=== PATIENT | male | born 1960 | race African-American/Black ===

== ENCOUNTER 2020-03-07 12:21 | Outpatient (REF) | payer MEDICARE, MEDICAID, SELFPAY | END 2020-03-07 12:22 | disposition home or self-care (01) | LOC: HO.LAB 12:21 | PROVIDERS: Visit Provider Internal Medicine | DX: Z20.828 Contact with and (suspected) exposure to other viral communicable diseases (principal) | CPT/HCPCS: U0003 ==

== ENCOUNTER 2021-03-20 11:57 | Emergency (ER) | payer OTHER, SELFPAY ==
--- NOTE | ~2021-03-20 | XR_ITS ---
EXAMINATION: XR CHEST XR LS SPINE CLINICAL INFORMATION: Cough. Radicular pain down left leg. COMPARISON: Chest radiograph done on 03/25/2019. Lumbosacral spine done on 03/26/2016. TECHNIQUE: 2 views of the chest and 2 views, 3 images of the lumbosacral spine were obtained. FINDINGS: Chest: Both lungs are symmetrically expanded and appear clear. The cardiac mediastinal silhouette is within normal limit. No evidence of any pleural effusion or pneumothorax. The visualized upper abdomen is unremarkable. Lumbosacral spine: Mild mid lumbar rotatory dextroscoliosis is present. There is partial sacralization of L5 on the left. Decreased disc height, endplate sclerosis and osteophyte formations, consistent with moderate degenerative spondylosis related changes are noted, most pronounced at L3-L4 and to a lesser extent at L4-L5. The heights of the lumbar vertebrae are well-maintained. The posterior appendages are intact. The paraspinal soft tissues are unremarkable. XR/XR lumbar spine 2-3V IMPRESSION: 1. The chest radiograph shows no radiographic evidence of acute cardiopulmonary disease. Specifically, no radiographic evidence of pneumonia. 2. The lumbosacral spine shows mild mid lumbar rotatory scoliosis and multilevel degenerative spondylosis at L4-L5 and L3-L4 and partial sacralization of L5 on the left, similar to prior study.
--- NOTE | ~2021-03-20 | XR_ITS ---
EXAMINATION: XR CHEST XR LS SPINE CLINICAL INFORMATION: Cough. Radicular pain down left leg. COMPARISON: Chest radiograph done on 03/25/2019. Lumbosacral spine done on 03/26/2016. TECHNIQUE: 2 views of the chest and 2 views, 3 images of the lumbosacral spine were obtained. FINDINGS: Chest: Both lungs are symmetrically expanded and appear clear. The cardiac mediastinal silhouette is within normal limit. No evidence of any pleural effusion or pneumothorax. The visualized upper abdomen is unremarkable. Lumbosacral spine: Mild mid lumbar rotatory dextroscoliosis is present. There is partial sacralization of L5 on the left. Decreased disc height, endplate sclerosis and osteophyte formations, consistent with moderate degenerative spondylosis related changes are noted, most pronounced at L3-L4 and to a lesser extent at L4-L5. The heights of the lumbar vertebrae are well-maintained. The posterior appendages are intact. The paraspinal soft tissues are unremarkable. XR/XR chest 2V IMPRESSION: 1. The chest radiograph shows no radiographic evidence of acute cardiopulmonary disease. Specifically, no radiographic evidence of pneumonia. 2. The lumbosacral spine shows mild mid lumbar rotatory scoliosis and multilevel degenerative spondylosis at L4-L5 and L3-L4 and partial sacralization of L5 on the left, similar to prior study.
[2021-03-20 12:19] VITALS: BP 142/61; PULSE 75; RESP 18; TEMP 37.2; O2SAT 99; BMI 22.9
--- NOTE | 2021-03-20 14:53 | ED_ITS ---
HPI - Back Pain/Injury General Chief Complaint: Back Pain/Injury Stated Complaint: back pain/cough Time Seen by Provider: 03/20/21 14:53 Source: patient Mode of arrival: ambulatory Limitations: no limitations History of Present Illness HPI Narrative: patient with back pain that started 3 days ago. He has had a dry cough and the coughing hurt his back. Patient has been taking tramadol and motrin but he is still having pain. The pain radiates to the left knee and groin. Patient with L4, L5 and S1 with bad disks. patient has been vaccinated against covid, patient has influenza shot. MD elicited complaint: back injury Pertinent past history: prior back pain Onset (ago): day(s) Timing: constant Severity: moderate Related Data Home Medications Medication Instructions Recorded Confirmed tramadol 50 mg tablet 50 mg PO BID PRN 10/25/20 10/25/20 Previous Rx's Medication Instructions Recorded clonazepam 1 mg tablet 1 mg PO DAILY PRN 30 Days #20 tab 10/25/20 sildenafil 50 mg tablet 50 mg PO DAILY PRN 30 Days #3 tab 01/17/21 cyclobenzaprine 10 mg tablet 10 mg PO TID #10 tab 03/20/21 gabapentin 100 mg capsule 100 mg PO TID #30 cap 03/20/21 Allergies Allergy/AdvReac Type Severity Reaction Status Date / Time No Known Allergies Allergy Verified 10/25/20 11:30 Review of Systems Constitutional: Constitutional: Reports no additional constitutional complaints Eyes: Eyes: Reports no additional eye complaints ENT: Denies dizziness Cardiovascular: Cardiovascular: Reports no additional cardiovascular complain ts Respiratory: Respiratory: Reports as per HPI Gastrointestinal: Gastrointestinal: Reports no additional gastrointestinal complaints Musculoskeletal: Musculoskeletal: Reports no additional musculoskeletal complaints Integumentary/Breasts: Skin/Breast: Denies rash Neurologic: Reports system reviewed and no additional complaints, except as documented, Denies dizziness and Denies Sensory deficit (Neuro) Psychiatric: Psychiatric: Denies anxiety PMFSH Past Medical History Medical History Anxiety Colon cancer Depression Screening for colon cancer Screening for diabetes mellitus Screening for hyperlipidemia Screening for prostate cancer Surgical History History of colonoscopy Family History Family History Mother Hypertension Diabetes Father No problems noted. Other Substance use disorder Social History Social History Housing: Apartment Alcohol intake: never Patient Tobacco Use Status: Current everyday Tobacco user Tobacco use type: Cigarette Cigarette Packs Per Day: 1 Cigarettes Per Day: 20 Advance Directives: No Advance Directives Information Provided: Yes Current occupational status: employed and disabled Current occupation: Right Handed Physical Exam Vital Signs: Vital Signs: Last Vital Signs Temp 97.8 F 03/20/21 15:44 Pulse 67 03/20/21 15:44 Resp 17 03/20/21 15:44 BP 113/67 03/20/21 15:44 Pulse Ox 99 03/20/21 15:44 BMI result Body Mass Index 22.9 Const: Other: thin male looking uncomfortable Nutritional Appearance: thin Orientation/consciousness: oriented to person and patient oriented x3 Limitations: no limitations HENMT: Head: Yes normal to inspection Ears: external ears normal General nose exam: Normal external nose present Mouth: Normal oral and palatal mucosa present and oropharynx normal Throat: Yes posterior oropharynx normal Eyes: General: appearance normal, both eyes and all related structures Neck: Other: supple Neck: Yes normal visual inspection Chest: Chest palpation & inspection: normal inspection of the chest Resp: Auscultation: clear to auscultation bilaterally Cardio: Jugular venous distension: no JVD Rate: regular rate Rhythm: regular rhythm Heart sounds: S1 normal heart sound present and S2 normal heart sound present GI: Inspection: Yes normal to inspection Palpation (GI): Soft to palpation, nontender and No hepatosplenomegaly present Auscultation: normal bowel sounds Back/Spine/Pelvis: Other: bilateral SI joint pain, pain on the left with straight leg raise Skin: General skin exam: no rashes or lesions noted Neuro: General: oriented to person and patient oriented x3 Cranial nerves: Yes CN's II-XII intact bilaterally Motor exam (neuro): 5/5 motor strength present throughout Sensory Exam: No Sensory deficit (Neuro) Extrem: General: Yes normal to inspection Psych: Appearance: grossly normal Course Reevaluation(s) Reevaluation #1: Patient with back pain after coughing, CXR clear, covid neg ative, diffuse arthritis of back will start flexeril and gabapentin Time: 17:07 MDM - Back Pain/Injury Lab Data Labs: Lab Results 03/20/21 Range/Units 15:30 Influenza Type A (PCR) NEGATIVE (Negative) Influenza Type B (PCR) NEGATIVE (Negative) RSV RNA Qual (PCR) NEGATIVE (Negative) SARS-CoV-2 RNA (RT-PCR) NEGATIVE (Negative) Imaging Data chest and lumbar sacral spine: Radiologist's impression: Chest: Both lungs are symmetrically expanded and appear clear. The cardiac mediastinal silhouette is within normal limit. No evidence of any pleural effusion or pneumothorax. The visualized upper abdomen is unremarkable. Lumbosacral spine: Mild mid lumbar rotatory dextroscoliosis is present. There is partial sacralization of L5 on the left. Decreased disc height, endplate sclerosis and osteophyte formations, consistent with moderate degenerative spondylosis related changes are noted, most pronounced at L3-L4 and to a lesser extent at L4-L5. The heights of the lumbar vertebrae are well-maintained. The posterior appendages are intact. The paraspinal soft tissues are unremarkable. Discharge Plan Discharge Clinical Impression: Lumbar radiculopathy Low back pain Qualifiers: Chronicity: unspecified Back pain laterality: midline Sciatica presence: with sciatica Sciatica laterality: bilateral sciatica Qualified Code(s): M54.41 - Lumbago with sciatica, right side Patient Disposition: Home, Self-Care Instructions: Acute Low Back Pain (ED), Lumbar Radiculopathy (ED) Prescriptions: New cyclobenzaprine 10 mg tablet 10 mg PO TID Qty: 10 RF: 0 gabapentin 100 mg capsule 100 mg PO TID Qty: 30 RF: 0 No Action clonazepam 1 mg tablet 1 mg PO DAILY PRN (Reason: anxiety) 30 Days Qty: 20 RF: 0 sildenafil 50 mg tablet 50 mg PO DAILY PRN (Reason: sexual activity) 30 Days Qty: 3 RF: 5 tramadol 50 mg tablet 50 mg PO BID PRNRF: 0 Referrals: Natacha Vargas MD [Primary Care Provider] - 1 week
[2021-03-20] MEDS: Cyclobenzaprine HCl 10 MG TABLET PO (15:32)
[2021-03-20] MEDS: Ketorolac Tromethamine 60 MG/2 ML VIAL IM (15:32)
[2021-03-20 15:44] VITALS: BP 113/67; PULSE 67; RESP 17; TEMP 36.6; O2SAT 99
[2021-03-20 16:13] LABS: Influenza A PCR NEGATIVE (Negative); Influenza B PCR NEGATIVE (Negative); Resp Syncy Virus RNA Qual PCR NEGATIVE (Negative); SARS COV2 PCR INHOUSE NEGATIVE (Negative)
== END 2021-03-20 17:30 | disposition home or self-care (01) ==
PROVIDERS: Emergency Provider Emergency Medicine; PCP Internal Medicine
DX: M54.16 Radiculopathy, lumbar region (principal); M54.50 Low back pain, unspecified; Z20.822 Contact with and (suspected) exposure to COVID-19
CPT/HCPCS: 0241U; 36415; 71046; 72100; 96372; 99284; J1885

== ENCOUNTER 2021-08-20 09:52 | Emergency (ER) | payer OTHER, SELFPAY ==
[2021-08-20 11:28] VITALS: BP 142/77; PULSE 67; RESP 18; TEMP 36.2; O2SAT 100; BMI 21.5
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
[2021-08-20] MEDS: Ketorolac Tromethamine 30 MG/ML VIAL IM (13:00)
== END 2021-08-20 13:14 | disposition home or self-care (01) ==
PROVIDERS: Emergency Provider Emergency Medicine; PCP Internal Medicine
DX: M54.50 Low back pain, unspecified (principal); M54.2 Cervicalgia; F17.210 Nicotine dependence, cigarettes, uncomplicated; Z71.6 Tobacco abuse counseling; Z79.899 Other long term (current) drug therapy
CPT/HCPCS: 96372; 99281; 99282; 99284; J1885

== ENCOUNTER 2022-01-22 07:34 | Emergency (ER) | payer OTHER, SELFPAY ==
--- NOTE | ~2022-01-22 | CT_ITS ---
EXAMINATION: CT ABDOMEN AND PELVIS WITH CONTRAST CLINICAL INFORMATION: Abdominal pain. No bowel movement for 4 days. COMPARISON: None TECHNIQUE: Multidetector volumetric images were obtained from the superior aspect of the liver through the pubic symphysis following administration 85 mL of Omnipaque 350 intravenous contrast. Sagittal and coronal reformatted images were obtained on the technologist's workstation. Oral contrast: No This CT examination was performed using dose optimization techniques as appropriate, variously including the following: *Automated exposure control *Adjustment of mA and/or kV according to patient size (this includes techniques or standardized protocols for targeted exams where dose is matched to indication/reason for exam; i.e. extremities or head) *Use of iterative reconstruction technique DLP: 371 mGy-cm FINDINGS: LUNG BASES: The visualized lung bases are unremarkable. LIVER, GALLBLADDER, AND BILIARY TREE: The liver is normal in size, shape, and attenuation. Calcified granulomata noted in the liver. No focal hepatic lesion or biliary ductal dilatation is present. The gallbladder is unremarkable with no evidence of radiopaque gallstones, gallbladder wall thickening, or obvious pericholecystic inflammatory changes. PANCREAS: Unremarkable. SPLEEN: Unremarkable. ADRENAL GLANDS: Unremarkable. KIDNEYS AND URETERS: The kidneys are normal in size, shape, and attenuation. No hydronephrosis or hydroureter. No perinephric stranding. Prominent central parapelvic cyst in the right kidney. This measures 4.6 cm. This is a simple cyst and no further follow-up is recommended. Early excretion of contrast versus 0.3 cm calculus at the upper pole of the right kidney, 6 cm from the posterior axillary line. BLADDER: Unremarkable. GASTROINTESTINAL TRACT: The stomach is unremarkable. Normal caliber of the small bowel. No obstruction. Normal appendix. No colonic wall thickening or acute inflammation. No abnormal colonic stool burden. No free air or free fluid. ABDOMINAL WALL: No significant hernia is appreciated. In the posterior subcutaneous fat there is a 3.1 cm ovoid cyst, possibly a sebaceous cyst. LYMPH NODES: Normal. VASCULAR: Normal caliber aorta with minimal atherosclerotic calcification. PELVIC VISCERA: The prostate and seminal vesicles are unremarkable. OSSEOUS STRUCTURES: No acute or suspicious osseous abnormality. Mild degenerative changes throughout the spine. Vacuum disc phenomenon at L3-L4. Sacralization of L5. Degenerative changes of the hips. CT/CT abdomen pelvis w IV con IMPRESSION: No acute findings of the abdomen or pelvis. No inflammatory changes. No obstruction. No abnormal colonic stool burden. Fleischner guidelines were followed.
--- NOTE | ~2022-01-22 | XR_ITS ---
EXAMINATION: XR CHEST CLINICAL INFORMATION: Epigastric pain. COMPARISON: 03/20/2021 chest radiographs. TECHNIQUE: Frontal view of the chest was obtained. FINDINGS: No significant abnormality is noted involving the heart, lungs, mediastinum, bony thorax or soft tissues. XR/XR chest 1V IMPRESSION: No acute cardiopulmonary process.
[2022-01-22 07:41] VITALS: BP 134/76; PULSE 90; O2SAT 96
[2022-01-22 07:44] VITALS: BP 137/74; PULSE 92; RESP 16; TEMP 37.5; O2SAT 97; BMI 20.7
[2022-01-22 07:48] VITALS: PULSE 92; RESP 16
--- NOTE | 2022-01-22 08:26 | ED_ITS ---
HPI - General Adult General Chief complaint: General Medical Stated complaint: NO BM X'S 4 DAYS,UPPER ABD PAIN,KEVIN PER EMS Time Seen by Provider: 01/22/22 08:15 Source: patient and EMS Mode of arrival: EMS Limitations: no limitations History of Present Illness HPI narrative: Patient is a 61 year old assigned male at with no reported medical history presenting to the emergency department today feeling unwell and not having a bowel movement over the last 4 days. Patient states that over the last few days, he has felt generally unwell and he has not been having normal bowel movements. Patient states that he is concerned about ticks because their dog got out the other day and they had to remove a bunch of ticks from the dog. Patient denies any dizziness, lightheadedness, abdominal pain, nausea, vomiting, blurry vision, double vision, loss of vision, chest pain, difficulty breathing, shortne ss of breath, back pain, night sweats, pain with urination, increased urinary frequency, increased urinary urgency, blood in his urine or stool, syncope or a near syncopal episode, recent trauma or falls, bowel incontinence, bladder incontinence, bowel retention, bladder retention, or any other complaints at this time. Onset (ago): day(s) (4) Severity: mild Severity scale (1-10): 3 Quality: aching Relieving factors: none Exacerbating factors: none Associated symptoms: fever/chills Treatments prior to arrival: none Related Data Home Medications Medication Instructions Recorded Confirmed tramadol 50 mg tablet 50 mg PO BID PRN 10/25/20 03/22/21 Previous Rx's Medication Instructions Recorded clonazepam 1 mg tablet 1 mg PO DAILY PRN anxiety 30 days 10/25/20 #20 tabs cyclobenzaprine 10 mg tablet 10 mg PO TID #10 tabs 03/20/21 gabapentin 100 mg capsule 100 mg PO TID #30 caps 03/20/21 naproxen 500 mg tablet 500 mg PO BID PRN pain #20 tabs 03/22/21 prednisone 20 mg tablet 40 mg PO DAILY 5 days #10 tabs 03/22/21 cyclobenzaprine 10 mg tablet 10 mg PO TID PRN muscle spasm 7 08/20/21 days #21 tabs ketorolac 10 mg tablet 10 mg PO Q6H 5 days #20 tabs 08/20/21 sildenafil 50 mg tablet 50 mg PO DAILY PRN sexual activity 09/27/21 30 days #3 tabs doxycycline hyclate 100 mg tablet 100 mg PO BID 10 days #20 tabs 01/22/22 Allergies Allergy/AdvReac Type Severity Reaction Status Date / Time No Known Allergies Allergy Verified 08/20/21 11:28 Review of Systems Constitutional: Constitutional: Reports no additional constitutional complaints, Reports chills, Reports fever(s) and Denies night sweats Eyes: Eyes: Reports no additional eye complaints, Denies blurry vision, Denies change in vision, Denies diplopia, Denies eye discharge, Denies loss of vision and Denies eye pain ENT: Denies dizziness Cardiovascular: Cardiovascular: Reports no additional cardiovascular complaints, Denies chest pain, Denies lightheadedness, Denies Loss of Consciousness and Denies dyspnea Respiratory: Respiratory: Reports no additional respiratory complaints and Denies dyspnea Gastrointestinal: Gastrointestinal: Reports no additional gastrointestinal complaints, Denies abdominal pain, Denies melena, Denies hematochezia, Denies change in bowel habits and Denies change in stool character Genitourinary: Genitourinary: Reports no additional male genitourinary complaints, Denies hematuria, Denies oliguria, Denies difficulty urinating, Denies dysuria, Denies urinary frequency, Denies urinary hesitancy, Denies urinary incontinence and Denies urinary urgency Musculoskeletal: Musculoskeletal: Reports no additional musculoskeletal complaints, Denies numbness and Denies tingling Neurologic: Denies dizziness, Denies loss of vision, Denies numbness and Denies tingling Psychiatric: Psychiatric: Reports no additional psychiatric complaints Endocrine: Endocrine: Reports no additional endocrine complaints Hematologic/Lymphatic: Hematologic/Lymphatic: Reports no additional hematologic/lymphatic complaints Allergic/Immunologic: Allergic/Immunologic: Reports no additional allergic/immunologic complaints [facility] Past Medical History Attestation statement: The following information was validated with the patient. Source: old records reviewed Medical History Anxiety Colon cancer Depression Screening for colon cancer Screening for diabetes mellitus Screening for hyperlipidemia Screening for prostate cancer Surgical History History of colonoscopy Family History Family History Mother Hypertension Diabetes Father No problems noted. Other Substance use disorder Social History Social History Housing: Apartment Alcohol intake: never Patient Tobacco Use Status: Current everyday Tobacco user Tobacco use type: Cigarette Cigarette Packs Per Day: 1 Cigarettes Per Day: 20 e-Cigarette/Vaping Use: Never Used Second Hand Smoke Exposure: No Use of substances other than those prescribed or required for medical reasons: No Advance Directives: No service: No Current occupational status: unemployed and disabled Current occupation: Right Handed Physical Exam ED Vital Signs: Vital Signs - 24 hr 01/22/22 07:44 01/22/22 07:48 01/22/22 09:55 Temperature 99.5 F 103.0 F H Pulse Rate 92 92 94 Respiratory Rate 16 16 18 Blood Pressure 137/74 118/62 Pulse Oximetry 97 100 Oxygen Delivery Method Room Air Room Air 01/22/22 14:19 Temperature 98.5 F Pulse Rate 72 Respiratory Rate 20 Blood Pressure 99/48 L Pulse Oximetry 95 Oxygen Delivery Method Room Air BMI result Body Mass Index 20.7 Const General: cooperative, no acute distress, alert and awake Nutritional Appearance: well nourished Orientation/consciousness: patient oriented x3 Limitations: no limitations HENMT Head: Yes normal to inspection and Yes atraumatic Ears: hearing grossly normal bilaterally and external ears normal General nose exam: Normal external nose present, no nasal discharge noted and no epistaxis Face and sinus: Yes normal facial exam, No abrasion and No laceration Mouth: Normal oral and palatal mucosa present, no drooling and no muffled voice Eyes General: appearance normal, both eyes and all related structures Periorbital: periorbital findings normal Eyelids: Yes eyelids normal Conjunctivae: conjunctivae normal Pupils: Equal, round and reactive pupils present EOM: EOMs intact bilaterally Neck Neck: Yes normal visual inspection, Yes full ROM and Yes no lymphadenopathy Chest Chest palpation & inspection: normal inspection of the chest Resp Effort & Inspection: normal respiratory effort and able to speak in complete sentences Auscultation: clear to auscultation bilaterally Cardio Rate: regular rate Rhythm: regular rhythm GI Inspection: Yes normal to inspection Palpation (GI): Soft to palpation, not firm, nontender, no guarding and not rigid Neuro General: patient oriented x3 and moves all extremities Cranial nerves: Yes Equal, round and reactive pupils present Cognition (Neuro): normal cognition Motor exam (neuro): 5/5 motor strength present throughout Sensory Exam: Normal double simultaneous stimulation for sensation Coordination: [id number] test normal Extrem General: Yes normal to inspection, Yes full ROM and Yes capillary refill normal Psych Appearance: grossly normal Mental Status: mental status grossly normal Affect: normal affect Attitude: cooperative Thought process: Normal thought process present Thought content: Normal thought content present Insight: Good insight present (Psych) Medical Decision Making MDM Narrative Medical decision making narrative: Patient is a 61 year old assigned male at with no reported medical history presenting to the emergency department today with no bowel movements and feeling generally unwell. Patient's physical exam was unremarkable. Patient's blood work was unremarkable. Patient's urine showed no acute process. Patient's EKG was unremarkable. Patient's chest x-ray showed no acute process. Given the patient's fever with no clear origin and recent exposure to ticks, the patient will be treated for a tick borne illness. I explained my physical exam findings as well as all test results to the patient and the patient's . I answered all questions asked by the patient and the patient's . Patient received Toradol and Tylenol which he stated helped his symptoms significantly. I stressed the importance of the patient taking his medication as prescribed. I stressed the importance of the patient following up with his primary care provider. I stressed the importance of the patient returning to the emergency department immediately if his symptoms were to worsen or if he were to develop any dizziness, shortness of breath, difficulty breathing, chest pain, blurry vision, loss of vision, nausea, vomiting, abdominal pain, fever, chills, back pain, or any other complaints. Patient and the patient's verbalized agreement and understanding with this treatment plan and discharge. Medical Records Medical records reviewed: Yes I reviewed the patient's medical records. Lab Data Lab results reviewed: Yes I reviewed the patient's lab results. Result diagrams: 01/22/22 08:43 01/22/22 08:43 Labs: Lab Results 01/22/22 01/22/22 01/22/22 Range/Units 08:43 08:43 08:43 WBC 3.7 L (4.8-10.8) X10*3/uL RBC 5.42 (4.60-5.80) X10*6/uL Hgb 16.1 (14.0-18.0) g/dl Hct 46.9 (42.0-52.0) % MCV 86.5 (80.0-98.0) fL MCH 29.7 (27.0-33.0) pg MCHC 34.3 (31.0-36.0) g/dl RDW 13.3 (11.0-16.0) % Plt Count 98 L (160-400) X10*3/uL MPV 12.3 (9.4-12.4) fL Immature Gran % (Auto) 0.5 H (0.0-0.4) % Neut % (Auto) 78.2 H (45-73) % Lymph % (Auto) 15.1 L (20-40) % Tyler % (Auto) 5.9 (2-11) % Eos % (Auto) 0.0 (0-4) % Baso % (Auto) 0.3 (0-2) % Lymph # (Auto) 0.6 L (1.2-4.9) X10*3/uL Tyler # (Auto) 0.2 (0.1-1.2) X10*3/uL Eos # (Auto) 0.0 (0.0-0.4) X10*3/uL Baso # (Auto) 0.0 (0.0-0.2) X10*3/uL Abs Immat Gran (auto) 0.02 (0.00-0.03) X10*3/uL Absolute Neuts (auto) 2.9 (2.0-8.3) x10*3/uL Absolute Nucleated RBC 0.000 (0.0-0.012) X10*3/uL Nucleated RBC % (auto) 0.0 (0.0-0.2) /100WBC Sodium 135 (135-145) mmol/L Potassium 4.5 (3.3-5.1) mmol/L Chloride 99 (96-108) mmol/L Carbon Dioxide 26 (22-29) mmol/L Anion Gap 15 (12-20) BUN 16 (9-16) mg/dL Creatinine 1.13 (0.5-1.4) mg/dL Estim Creat Clear Calc 63.0 Estimated GFR > 60 Random Glucose 111 (60-115) mg/dL Calcium 8.7 (8.4-10.2) mg/dL Magnesium 1.9 (1.6-2.6) mg/dL Total Bilirubin 0.5 (0.0-1.0) mg/dL AST 56 H (5-37) U/L ALT 43 H (0-40) U/L Alkaline Phosphatase 108 (39-117) U/L Troponin I High Sens 8.1 (<3.5-35.0) ng/L C-Reactive Protein 11.17 H (< or = 0.50) mg/dL Total Protein 6.8 (6.5-8.0) g/dL Albumin 3.8 (3.5-5.0) g/dL Urine Color Urine Appearance Urine pH (5.0-9.0) Ur Specific Hardaway (1.005-1.025) Urine Protein (Neg-Trace) mg/dL Urine Glucose (UA) (Negative) mg/dL Urine Ketones (Negative) mg/dL Urine Blood (Negative) Urine Nitrite (Negative) Ur Leukocyte Esterase (Negative) Urine RBC (0-2) /HPF Urine WBC (0-5) /HPF Ur Squamous Epith Cells (0-2) /HPF Urine Bacteria (None Seen) Hyaline Casts (0-2) /LPF Urine Opiates Screen (Not Detect) Urine Fentanyl Screen (Not Detect) Ur Barbiturates Screen (Not Detect) Ur Phencyclidine Scrn (Not Detect) Ur Amphetamines Screen (Not Detect) U Benzodiazepines Scrn (Not Detect) Urine Cocaine Screen (Not Detect) U Marijuana (THC) Screen (Not Detect) Ethyl Alcohol < 10 mg/dL Influenza Type A (PCR) Influenza Type B (PCR) RSV RNA Qual (PCR) SARS-CoV-2 RNA (RT-PCR) 01/22/22 01/22/22 01/22/22 Range/Units 08:50 09:48 10:21 WBC (4.8-10.8) X10*3/uL RBC (4.60-5.80) X10*6/uL Hgb (14.0-18.0) g/dl Hct (42.0-52.0) % MCV (80.0-98.0) fL MCH (27.0-33.0) pg MCHC (31.0-36.0) g/dl RDW (11.0-16.0) % Plt Count (160-400) X10*3/uL MPV (9.4-12.4) fL Immature Gran % (Auto) (0.0-0.4) % Neut % (Auto) (45-73) % Lymph % (Auto) (20-40) % Tyler % (Auto) (2-11) % Eos % (Auto) (0-4) % Baso % (Auto) (0-2) % Lymph # (Auto) (1.2-4.9) X10*3/uL Tyler # (Auto) (0.1-1.2) X10*3/uL Eos # (Auto) (0.0-0.4) X10*3/uL Baso # (Auto) (0.0-0.2) X10*3/uL Abs Immat Gran (auto) (0.00-0.03) X10*3/uL Absolute Neuts (auto) (2.0-8.3) x10*3/uL Absolute Nucleated RBC (0.0-0.012) X10*3/uL Nucleated RBC % (auto) (0.0-0.2) /100WBC Sodium (135-145) mmol/L Potassium (3.3-5.1) mmol/L Chloride (96-108) mmol/L Carbon Dioxide (22-29) mmol/L Anion Gap (12-20) BUN (9-16) mg/dL Creatinine (0.5-1.4) mg/dL Estim Creat Clear Calc Estimated GFR Random Glucose (60-115) mg/dL Calcium (8.4-10.2) mg/dL Magnesium (1.6-2.6) mg/dL Total Bilirubin (0.0-1.0) mg/dL AST (5-37) U/L ALT (0-40) U/L Alkaline Phosphatase (39-117) U/L Troponin I High Sens (<3.5-35.0) ng/L C-Reactive Protein (< or = 0.50) mg/dL Total Protein (6.5-8.0) g/dL Albumin (3.5-5.0) g/dL Urine Color Urine Appearance Urine pH (5.0-9.0) Ur Specific Hard[place] (1.005-1.025) Urine Protein (Neg-Trace) mg/dL Urine Glucose (UA) (Negative) mg/dL Urine Ketones (Negative) mg/dL Urine Blood (Negative) Urine Nitrite (Negative) Ur Leukocyte Esterase (Negative) Urine RBC (0-2) /HPF Urine WBC (0-5) /HPF Ur Squamous Epith Cells (0-2) /HPF Urine Bacteria (None Seen) Hyaline Casts (0-2) /LPF Urine Opiates Screen Not Detected (Not Detect) Urine Fentanyl Screen Not Detected (Not Detect) Ur Barbiturates Screen Not Detected (Not Detect) Ur Phencyclidine Scrn Not Detected (Not Detect) Ur Amphetamines Screen Not Detected (Not Detect) U Benzodiazepines Scrn Not Detected (Not Detect) Urine Cocaine Screen Not Detected (Not Detect) U Marijuana (THC) Screen Not Detected (Not Detect) Ethyl Alcohol mg/dL Influenza Type A (PCR) Cancelled NEGATIVE Influenza Type B (PCR) Cancelled NEGATIVE RSV RNA Qual (PCR) Cancelled NEGATIVE SARS-CoV-2 RNA (RT-PCR) Cancelled NEGATIVE 01/22/22 01/22/22 Range/Units 10:24 13:53 WBC (4.8-10.8) X10*3/uL RBC (4.60-5.80) X10*6/uL Hgb (14.0-18.0) g/dl Hct (42.0-52.0) % MCV (80.0-98.0) fL MCH (27.0-33.0) pg MCHC (31.0-36.0) g/dl RDW (11.0-16.0) % Plt Count (160-400) X10*3/uL MPV (9.4-12.4) fL Immature Gran % (Auto) (0.0-0.4) % Neut % (Auto) (45-73) % Lymph % (Auto) (20-40) % Tyler % (Auto) (2-11) % Eos % (Auto) (0-4) % Baso % (Auto) (0-2) % Lymph # (Auto) (1.2-4.9) X10*3/uL Tyler # (Auto) (0.1-1.2) X10*3/uL Eos # (Auto) (0.0-0.4) X10*3/uL Baso # (Auto) (0.0-0.2) X10*3/uL Abs Immat Gran (auto) (0.00-0.03) X10*3/uL Absolute Neuts (auto) (2.0-8.3) x10*3/uL Absolute Nucleated RBC (0.0-0.012) X10*3/uL Nucleated RBC % (auto) (0.0-0.2) /100WBC Sodium (135-145) mmol/L Potassium (3.3-5.1) mmol/L Chloride (96-108) mmol/L Carbon Dioxide (22-29) mmol/L Anion Gap (12-20) BUN (9-16) mg/dL Creatinine (0.5-1.4) mg/dL Estim Creat Clear Calc Estimated GFR Random Glucose (60-115) mg/dL Calcium (8.4-10.2) mg/dL Magnesium (1.6-2.6) mg/dL Total Bilirubin (0.0-1.0) mg/dL AST (5-37) U/L ALT (0-40) U/L Alkaline Phosphatase (39-117) U/L Troponin I High Sens 9.7 (<3.5-35.0) ng/L C-Reactive Protein (< or = 0.50) mg/dL Total Protein (6.5-8.0) g/dL Albumin (3.5-5.0) g/dL Urine Color Dark Yellow Urine Appearance Clear Urine pH 7.0 (5.0-9.0) Ur Specific Hardaway >= 1.030 H (1.005-1.025) Urine Protein 100 (2+) H (Neg-Trace) mg/dL Urine Glucose (UA) Negative (Negative) mg/dL Urine Ketones 15 (Negative) mg/dL Urine Blood Trace H (Negative) Urine Nitrite Negative (Negative) Ur Leukocyte Esterase Trace H (Negative) Urine RBC 11-20 H (0-2) /HPF Urine WBC 0-5 (0-5) /HPF Ur Squamous Epith Cells 0-2 (0-2) /HPF Urine Bacteria None Seen (None Seen) Hyaline Casts 0-2 (0-2) /LPF Urine Opiates Screen (Not Detect) Urine Fentanyl Screen (Not Detect) Ur Barbiturates Screen (Not Detect) Ur Phencyclidine Scrn (Not Detect) Ur Amphetamines Screen (Not Detect) U Benzodiazepines Scrn (Not Detect) Urine Cocaine Screen (Not Detect) U Marijuana (THC) Screen (Not Detect) Ethyl Alcohol mg/dL Influenza Type A (PCR) Influenza Type B (PCR) RSV RNA Qual (PCR) SARS-CoV-2 RNA (RT-PCR) Imaging Data Chest x-ray: Attestation: I personally reviewed and interpreted this imaging study as follows: My impression: No acute process. Radiologist's impression: EXAMINATION: XR CHEST CLINICAL INFORMATION: Epigastric pain. COMPARISON: 03/20/2021 chest radiographs. TECHNIQUE: Frontal view of the chest was obtained. FINDINGS: No significant abnormality is noted involving the heart, lungs, mediastinum, bony thorax or soft tissues. XR/XR chest 1V IMPRESSION: No acute cardiopulmonary process. ? Dictated By: Jose A Mcintyre MD Signed By: Electronically signed by Jose A Mcintrye MD 01/22/[address] scan - abdomen: Attestation: I personally reviewed and interpreted this imaging study as follows: My impression: No acute process. Radiologist's impression: EXAMINATION: CT ABDOMEN AND PELVIS WITH CONTRAST? CLINICAL INFORMATION: Abdominal pain. No bowel movement for 4 days.? COMPARISON: None? TECHNIQUE: Multidetector volumetric images were obtained from the superior aspect of the liver through the pubic symphysis following administration 85 mL of Omnipaque 350 intravenous contrast. Sagittal and coronal reformatted images were obtained on the technologist's workstation.? Oral contrast: No This CT examination was performed using dose optimization techniques as appropriate, variously including the following: *Automated exposure control *Adjustment of mA and/or kV according to patient size (this includes techniques or standardized protocols for targeted exams where dose is matched to indication/reason for exam; i.e. extremities or head) *Use of iterative reconstruction technique DLP: 371 mGy-cm FINDINGS: LUNG BASES: The visualized lung bases are unremarkable.? LIVER, GALLBLADDER, AND BILIARY TREE: The liver is normal in size, shape, and attenuation. Calcified granulomata noted in the liver. No focal hepatic lesion or biliary ductal dilatation is present. The gallbladder is unremarkable with no evidence of radiopaque gallstones, gallbladder wall thickening, or obvious pericholecystic inflammatory changes.? PANCREAS: Unremarkable.? SPLEEN: Unremarkable.? ADRENAL GLANDS: Unremarkable.? KIDNEYS AND URETERS: The kidneys are normal in size, shape, and attenuation. No hydronephrosis or hydroureter. No perinephric stranding. Prominent central parapelvic cyst in the right kidney. This measures 4.6 cm. This is a simple cyst and no further follow-up is recommended. Early excretion of contrast versus 0.3 cm calculus at the upper pole of the right kidney, 6 cm from the posterior axillary line. BLADDER: Unremarkable.? GASTROINTESTINAL TRACT: The stomach is unremarkable. Normal caliber of the small bowel. No obstruction. Normal appendix. No colonic wall thickening or acute inflammation. No abnormal colonic stool burden. No free air or free fluid.? ABDOMINAL WALL: No significant hernia is appreciated. In the posterior subcutaneous fat there is a 3.1 cm ovoid cyst, possibly a sebaceous cyst. LYMPH NODES: Normal. VASCULAR: Normal caliber aorta with minimal atherosclerotic calcification. PELVIC VISCERA: The prostate and seminal vesicles are unremarkable.? OSSEOUS STRUCTURES: No acute or suspicious osseous abnormality. Mild degenerative changes throughout the spine. Vacuum disc phenomenon at L3-L4. Sacralization of L5. Degenerative changes of the hips.? CT/CT abdomen pelvis w IV con IMPRESSION: No acute findings of the abdomen or pelvis. No inflammatory changes. No obstruction. No abnormal colonic stool burden. ? Fleischner guidelines were followed. Dictated By: Roly Earl MD Signed By: Electronically signed by Roly Earl MD 01/22/22 3337 ECG Data Attestation: I personally reviewed and interpreted this ECG as follows: Prior ECG tracings: not available for review Interpretation: Vent. Rate: 076 BPM ? ? Atrial Rate: 076 BPM P-R Int: 124 ms? QRS Dur: 088 ms QT Int: 368 ms ? ? ? P-R-T Axes: 070 056 051 degrees QTc Int: 414 ms ? Normal sinus rhythm Low voltage QRS Possible Right atrial enlargement Borderline ECG No previous ECGs available ? Electronically Signed By:FARIDEH SALINAS MD Dictated By: Raffi Salinas MD Signed By: Electronically signed by Raffi Salinas MD 01/22/22 0274 Discharge Plan Discharge Clinical Impression: Tick borne fever Patient Disposition: Home, Self-Care Instructions: Tick Bite (ED) Additional Instructions: Follow up with your primary care provider. Return to the emergency department immediately if your symptoms worsen or if you develop any dizziness, shortness of breath, difficulty breathing, chest pain, blurry vision, loss of vision, nausea, vomiting, abdominal pain, fever, chills, back pain, or any other complaints. Prescriptions: New doxycycline hyclate 100 mg tablet 100 mg PO BID 10 Days Qty: 20 1RF No Action clonazepam 1 mg tablet 1 mg PO DAILY PRN (Reason: anxiety) 30 Days Qty: 20 0RF sildenafil 50 mg tablet 50 mg PO DAILY PRN (Reason: sexual activity) 30 Days Qty: 3 5RF cyclobenzaprine 10 mg tablet 10 mg PO TID Qty: 10 0RF gabapentin 100 mg capsule 100 mg PO TID Qty: 30 0RF cyclobenzaprine 10 mg tablet 10 mg PO TID PRN (Reason: muscle spasm) 7 Days Qty: 21 0RF Rx Instructions: Side effect of drowsiness. Do not take at work or while driving ketorolac 10 mg tablet 10 mg PO Q6H 5 Days Qty: 20 0RF Rx Instructions: Patient received 30 mg Toradol in the ER. Do not take the this medication with any other NSAID, blood thinner, or aspirin. tramadol 50 mg tablet 50 mg PO BID PRN prednisone 20 mg tablet 40 mg PO DAILY 5 Days Qty: 10 0RF naproxen 500 mg tablet 500 mg PO BID PRN (Reason: pain) Qty: 20 0RF Referrals: Natacha Vargas MD [Primary Care Provider] - Stand Alone Forms: Work/School Release Print Language: Kyrgyz
[2022-01-22 08:50] LABS: MANUAL DIFF FLAG NO
[2022-01-22 08:51] LABS: Basophils Percent Auto 0.3 % (0-2); Hematocrit 46.9 % (42.0-52.0); Hemoglobin 16.1 g/dl (14.0-18.0); Imm Gran Abs Auto 0.02 X10*3/uL (0.00-0.03); Imm Gran Pct Auto 0.5 % (0.0-0.4); Lymphocytes Absolute Auto 0.6 X10*3/uL (1.2-4.9); Lymphocytes Percent Auto 15.1 % (20-40); Mean Corpuscular HGB Conc 34.3 g/dl (31.0-36.0); Mean Corpuscular Hemoglobin 29.7 pg (27.0-33.0); Mean Corpuscular Volume 86.5 fL (80.0-98.0); Monocytes Absolute Auto 0.2 X10*3/uL (0.1-1.2); Monocytes Percent Auto 5.9 % (2-11); Neutrophils Absolute Auto 2.9 x10*3/uL (2.0-8.3); Neutrophils Percent Auto 78.2 % (45-73); Red Blood Count 5.42 X10*6/uL (4.60-5.80); Red Cell Distribution Width 13.3 % (11.0-16.0); White Blood Count 3.7 X10*3/uL (4.8-10.8)
[2022-01-22 09:08] LABS: Alanine Aminotransferase 43 U/L (0-40); Albumin Level 3.8 g/dL (3.5-5.0); Alkaline Phosphatase 108 U/L (39-117); Anion Gap 15 (12-20); Aspartate Amino Transferase 56 U/L (5-37); Bilirubin Total 0.5 mg/dL (0.0-1.0); Blood Urea Nitrogen 16 mg/dL (9-16); Calcium 8.7 mg/dL (8.4-10.2); Carbon Dioxide 26 mmol/L (22-29); Chloride 99 mmol/L (96-108); Estimated Glomerular Filt Rate > 60; Ethanol < 10 mg/dL; Glucose Random 111 mg/dL (60-115); Magnesium 1.9 mg/dL (1.6-2.6); Potassium 4.5 mmol/L (3.3-5.1); Sodium 135 mmol/L (135-145); Total Protein 6.8 g/dL (6.5-8.0)
[2022-01-22 09:09] LABS: Mean Platelet Volume 12.3 fL (9.4-12.4); Platelet Count 98 X10*3/uL (160-400)
[2022-01-22] MEDS: iohexoL 350 MG/ML 100 ML INFUS..BTL 85 ML IV (09:35)
[2022-01-22 09:55] VITALS: BP 118/62; PULSE 94; RESP 18; TEMP 39.4; O2SAT 100
[2022-01-22] MEDS: Acetaminophen 325 MG TABLET 650 MG PO (10:12)
[2022-01-22] MEDS: Ketorolac Tromethamine 15 MG/ML VIAL IVPUSH (10:12)
[2022-01-22 10:40] LABS: Appearance Urine Clear; Color Urine Dark Yellow; Glucose Urine UA Negative (Negative); Leukocyte Esterase Urine Trace (Negative); Nitrite Urine Negative (Negative); Specific Gravity - Urine >= 1.030 (1.005-1.025); UMIC TRIGGER UACC YES; Urine Blood Trace (Negative); Urine Ketones 15 mg/dL (Negative); Urine Protein 100 (2+) mg/dL (Neg-Trace)
[2022-01-22 10:45] LABS: Bacteria Urine None Seen (None Seen); Hyaline Casts Urine 0-2 /LPF (0-2); Squamous Epithelial Cell Urine 0-2 /HPF (0-2); WBC Urine 0-5 /HPF (0-5)
[2022-01-22 10:56] LABS: Amphetamine Screen Urine Not Detected (Not Detect); Barbiturates, Urine Not Detected (Not Detect); Benzodiazepines Screen Urine Not Detected (Not Detect); Cannabinoid Screen Urine Not Detected (Not Detect); Cocaine Screen Urine Not Detected (Not Detect); Fentanyl, urine Not Detected (Not Detect); Opiate Screen Urine Not Detected (Not Detect); Phencyclidine Screen Urine Not Detected (Not Detect)
[2022-01-22 11:08] LABS: Influenza A PCR NEGATIVE (Negative); Influenza B PCR NEGATIVE (Negative); Resp Syncy Virus RNA Qual PCR NEGATIVE (Negative); SARS COV2 PCR INHOUSE NEGATIVE (Negative)
--- NOTE | 2022-01-22 11:32 | ECG_ITS ---
Test Reason : Chest Pain Blood Pressure : / mmHG Vent. Rate : 076 BPM Atrial Rate : 076 BPM P-R Int : 124 ms QRS Dur : 088 ms QT Int : 368 ms P-R-T Axes : 070 056 051 degrees QTc Int : 414 ms Normal sinus rhythm Low voltage QRS Possible Right atrial enlargement Borderline ECG No previous ECGs available Referred By: Grisel Kline Electronically Signed By:FARIDEH SALINAS MD
[2022-01-22 13:05] LABS: Troponin-I High Sensitivity 8.1 ng/L (<3.5-35.0)
[2022-01-22 13:20] LABS: C Reactive Protein 11.17 mg/dL (< or = 0.50)
[2022-01-22 14:19] VITALS: BP 99/48; PULSE 72; RESP 20; TEMP 36.9; O2SAT 95
[2022-01-22 14:26] LABS: Troponin-I High Sensitivity 9.7 ng/L (<3.5-35.0)
--- NOTE | 2022-01-22 14:27 | PC.NURSE ---
Repeat troponin drawn/sent. Pt denies pain or discomfort, resting quietly. Temp has trended down as charted
--- NOTE | 2022-01-23 08:17 | ECG_ITS ---
Test Reason : Chest Pain Blood Pressure : / mmHG Vent. Rate : 074 BPM Atrial Rate : 074 BPM P-R Int : 122 ms QRS Dur : 090 ms QT Int : 374 ms P-R-T Axes : 068 045 047 degrees QTc Int : 415 ms Normal sinus rhythm Intra-ventricular conduction delay Low voltage QRS Borderline ECG When compared with ECG of 22-JAN-2022 12:16, No significant change was found Referred By: Edouard Rajan Electronically Signed By:FARIDEH SALINAS MD
[2022-01-25 08:11] LABS: A. Phagocytphilium DNA,RT-PCR DETECTED (NOT DETECTED); Babesia Microti DNA, RT-PCR NOT DETECTED (NOT DETECTED); Borrelia Miyamotoi,DNA RT-PCR NOT DETECTED (NOT DETECTED); E.Chaffeensis DNA RT-PCR NOT DETECTED (NOT DETECTED); Lyme(Borrelia ssp)DNA RT-PCR NOT DETECTED (NOT DETECTED)
[2022-01-25 12:55] LABS: Source-Tick borne disease BLOOD
== END 2022-01-22 15:29 | disposition home or self-care (01) ==
PROVIDERS: Physician Assistant Medical; Emergency Provider Emergency Medicine Emergency Medical Services; PCP Internal Medicine
DX: A93.8 Other specified arthropod-borne viral fevers (principal); R07.89 Other chest pain; R10.13 Epigastric pain; F17.210 Nicotine dependence, cigarettes, uncomplicated; Z20.822 Contact with and (suspected) exposure to COVID-19; Z71.6 Tobacco abuse counseling; Z79.899 Other long term (current) drug therapy
CPT/HCPCS: 0241U; 36415; 71045; 74177; 80053; 80307; 81001; 82077; 83735; 84484; 85025; 86140; 87798; 87801; 93005; 96374; 99284; J1885; Q9967

== ENCOUNTER 2022-11-21 07:11 | Outpatient (REF) | payer OTHER, SELFPAY ==
[2022-11-21 07:22] LABS: MANUAL DIFF FLAG NO
[2022-11-21 07:48] LABS: Basophils Percent Auto 0.4 % (0-2); Eosinophils Absolute Auto 0.2 X10*3/uL (0.0-0.4); Eosinophils Percent Auto 2.7 % (0-4); Hematocrit 45.9 % (42.0-52.0); Imm Gran Abs Auto 0.03 X10*3/uL (0.00-0.03); Imm Gran Pct Auto 0.4 % (0.0-0.4); Lymphocytes Absolute Auto 2.3 X10*3/uL (1.2-4.9); Lymphocytes Percent Auto 34.4 % (20-40); Mean Corpuscular HGB Conc 32.7 g/dl (31.0-36.0); Mean Corpuscular Hemoglobin 29.8 pg (27.0-33.0); Mean Corpuscular Volume 91.1 fL (80.0-98.0); Mean Platelet Volume 10.5 fL (9.4-12.4); Monocytes Absolute Auto 0.9 X10*3/uL (0.1-1.2); Monocytes Percent Auto 13.2 % (2-11); Neutrophils Absolute Auto 3.3 x10*3/uL (2.0-8.3); Neutrophils Percent Auto 48.9 % (45-73); Platelet Count 226 X10*3/uL (160-400); Red Blood Count 5.04 X10*6/uL (4.60-5.80); Red Cell Distribution Width 13.3 % (11.0-16.0); White Blood Count 6.7 X10*3/uL (4.8-10.8)
[2022-11-21 08:06] LABS: Alanine Aminotransferase 10 U/L (0-40); Alkaline Phosphatase 76 U/L (39-117); Anion Gap 9 (12-20); Aspartate Amino Transferase 15 U/L (5-37); Bilirubin Total 0.2 mg/dL (0.0-1.0); Blood Urea Nitrogen 17 mg/dL (9-16); Calcium 9.4 mg/dL (8.4-10.2); Carbon Dioxide 29 mmol/L (22-29); Chloride 108 mmol/L (96-108); Estimated Glomerular Filt Rate > 60; Glucose Random 96 mg/dL (60-115); Lipase 43 U/L (8-78); Potassium 3.8 mmol/L (3.3-5.1); Sodium 142 mmol/L (135-145)
== END 2022-11-21 07:12 | disposition home or self-care (01) ==
LOC: HO.LAB 07:11
PROVIDERS: PCP Internal Medicine; Visit Provider Nurse Practitioner Family
DX: R10.13 Epigastric pain (principal)
CPT/HCPCS: 36415; 80053; 83690; 85025

== ENCOUNTER 2022-11-26 14:32 | Outpatient (AMB) | payer OTHER, SELFPAY ==
--- NOTE | 2022-11-26 14:35 | A.OFFPC_ITS ---
Vital Signs 11/26/22 14:36 Height 5 ft 10 in Weight 162 lb BMI 23.2 BP 130/70 Blood Pressure Location Lt brachial Position Sitting Intake Visit Reasons: epigastric pain Intake Note: Patient here for a follow up on epigastric pain [employer] Required: No Accompanied by: Self / Same As Patient Allergies No Known Allergies Allergy (Verified 11/26/22 14:57) Medication List - Last Reconciled 11/26/22 by Natacha Hurtdao MD lidocaine 4% (Aspercreme (lidocaine)) 1 patch topical DAILY PRN omeprazole 20 mg PO DAILY sertraline 25 mg PO DAILY sildenafil 50 mg PO DAILY PRN 30 days Tobacco use date assessed: 09/11/22 Dental Screening Dental Screen Date: 11/26/22 Did you have a dental visit in the last 12 months?: Yes Did you have a dental problem in the last 6 months where you did not have access to dental care?: No Was dental information given to patient?: Patient has dentist HPI HPI Comments History of Present Illness Details This is a 62-year-old male with chronic GERD, chronic low back pain, mild major depression that complains of right wrist pain that has been present for few weeks. Painless when flexion and extension. Had colonoscopy 2016 showing tubular adenoma of colon and has not been wanting to get another colonoscopy since 2016 due to the bowel prep. He is willing to go again for colonoscopy. Depression stable with SSRIs. GERD has markedly improved by changing diet. Low back pain still present and walks with a cane for gait stability. Use lidocaine patch for back pain [facility] Medical History (Updated 11/26/22 @ 16:14 by Natacha Hurtado MD) Anxiety Colon cancer Depression Screening for colon cancer Screening for diabetes mellitus Screening for hyperlipidemia Screening for prostate cancer Surgical History History of colonoscopy Family History Mother Hypertension Diabetes Father No problems noted. Other Substance use disorder Social History Housing: Apartment Alcohol intake: never Patient Tobacco Use Status: Current everyday Tobacco user Tobacco use type: Cigarette Cigarette Packs Per Day: 1 Cigarettes Per Day: 20 e-Cigarette/Vaping Use: Never Used Second Hand Smoke Exposure: No service: No Current occupational status: unemployed and disabled Current occupation: Right Handed Cognitive needs: No Hearing needs: No Vision needs: Yes (glasses) Questionnaire Thrive Questionnaire Date Thrive assessed: 09/11/22 HEIDI-7 AMB Questionnaire HEIDI-7 Date HEIDI - 7 assessed: 09/11/22 Source: Developed by Drs. Wilfredo Figueroa, Tanja Garcia, Reilly Garcia and colleagues, with an educational mary from [employer]. Review of Systems Const All systems reviewed & are unremarkable except as noted in HPI and below Eyes Reports no additional complaints, Denies change in vision and Denies other visual disturbances Card Denies chest pain at rest, Denies chest pain with activity, Denies edema, Denies irregular heart rhythm, Denies claudication, Denies dyspnea, Denies dyspnea on exertion, Denies orthopnea, Denies paroxysmal nocturnal dyspnea and Denies slow heart rate Resp Denies cough, Denies dyspnea and Denies dyspnea on exertion GI Reports abdominal pain, Denies change in bowel habits, Denies excessive flatus, Reports heartburn, Denies nausea and Denies vomiting Denies urinary hesitancy, Denies urinary incontinence and Denies urinary urgency Musc Denies abnormal gait, Reports back pain, Denies atrophy, Denies deformity and Denies limited range of motion Skin/Breast Denies bleeding lesions, Denies changing lesions and Denies rash Neuro Denies abnormal gait and Denies lack of coordination Physical exam (Primary Care) Vital Signs: Last Vital Signs BP 130/70 11/26/22 14:36 BMI result Body Mass Index 23.2 Tobacco/Smoking Status: Tobacco use Status Tobacco use date assessed 09/11/22 11/26/22 14:40 Patient Tobacco Use Status Current everyday Tobacco 11/26/22 14:40 Tobacco use type Cigarette 11/26/22 14:40 e-Cigarette/Vaping Use Never Used 11/26/22 14:40 Thrive Assessment: Date of Thrive Assessment Date Thrive assessed 09/11/22 11/26/22 14:40 Const Limitations: ambulation with cane Eyes General: appearance normal, both eyes and all related structures Eyelids: Yes eyelids normal Conjunctivae: conjunctivae normal Neck Neck: Yes normal visual inspection and Yes supple Resp Effort & Inspection: normal respiratory effort Auscultation: clear to auscultation bilaterally Cardio Jugular venous distension: no JVD Rate: regular rate Rhythm: regular rhythm Heart sounds: S1 normal heart sound present and S2 normal heart sound present Extrem General: Yes full ROM Assessment and Plan Assessment & Plan (1) Low back pain: Code(s): M54.5 - Low back pain Plan: Continue lidocaine patch prn (2) Mild major depression: Code(s): F32.0 - Major depressive disorder, single episode, mild Plan: Continue SSRIs. (3) Chronic GERD: Code(s): K21.9 - Gastro-esophageal reflux disease without esophagitis Plan: Continue PPIs as needed. (4) Right wrist pain: Code(s): M25.531 - Pain in right wrist Plan: Wrist brace ordered (5) Tubular adenoma of colon: Code(s): D12.6 - Benign neoplasm of colon, unspecified Plan: Gastroenterology referral colonoscopy. Orders: Orders [place] upper GI series Today K21.9 - Gastro-esophageal reflux disease without esophagitis Referrals Gastroenterology Referral D12.6 - Benign neoplasm of colon, unspecified Medications: New loratadine (Allergy Relief (loratadine)) 10 mg PO DAILY 90 days PRN 90 tabs 1RF allergic symptoms Brace,wrist (Wrist Brace - one) As directed 1 ea 0RF M25.531 - Pain in right wrist Coding Level of Care Code Est Pt Level 4 (59211) Diagnoses Low back pain M54.5 Mild major depression F32.0 Chronic GERD K21.9 Right wrist pain M25.531 Tubular adenoma of colon D12.6 Time Spent (min) 23
[2022-11-26 14:36] VITALS: BP 130/70; BMI 23.2
== END 2022-11-26 15:08 | disposition home or self-care (01) ==
PROVIDERS: PCP Internal Medicine; Visit Provider Internal Medicine
DX: M54.50 Low back pain, unspecified (principal); F32.0 Major depressive disorder, single episode, mild; K21.9 Gastro-esophageal reflux disease without esophagitis; M25.531 Pain in right wrist; D12.6 Benign neoplasm of colon, unspecified
CPT/HCPCS: 99214

== ENCOUNTER 2022-12-17 14:44 | Emergency (ER) | payer OTHER, SELFPAY ==
--- NOTE | 2022-12-17 | ECG_ITS ---
Test Reason : DIZZYNESS Blood Pressure : / mmHG Vent. Rate : 066 BPM Atrial Rate : 066 BPM P-R Int : 130 ms QRS Dur : 092 ms QT Int : 400 ms P-R-T Axes : 046 032 051 degrees QTc Int : 419 ms Normal sinus rhythm Normal ECG When compared with ECG of 22-JAN-2022 12:20, No significant change was found Referred By: Generic ED Physician Electronically Signed By:RANDI ANDREWS
--- NOTE | ~2022-12-17 | XR_ITS ---
EXAMINATION: XR WRIST, RIGHT CLINICAL INFORMATION: Pain, limited range of motion COMPARISON: None available. TECHNIQUE: PA, lateral, and oblique views of the right wrist. FINDINGS: The bones and soft tissues are normal. No fracture. Alignment is anatomic with normal joint spaces. No erosions or abnormal soft tissue calcifications. XR/XR wrist RT min 3V IMPRESSION: Unremarkable right wrist.
--- NOTE | ~2022-12-17 | CT_ITS ---
EXAMINATION: CT HEAD WITHOUT CONTRAST CLINICAL INFORMATION: Seizure COMPARISON: None available. TECHNIQUE: Contiguous axial imaging was performed from the skull base to vertex without intravenous administration of contrast. This CT examination was performed using dose optimization techniques as appropriate, variously including the following: *Automated exposure control *Adjustment of mA and/or kV according to patient size (this includes techniques or standardized protocols for targeted exams where dose is matched to indication/reason for exam; i.e. extremities or head) *Use of iterative reconstruction technique DLP: 650 mGy-cm FINDINGS: There is no evidence of an extra-axial collection. There is no evidence of intra-axial or extra-axial hemorrhage. The ventricles and extra-axial CSF spaces are appropriate. Melton-white matter differentiation is normal. No mass, mass effect or infarct. Review of bone windows is normal. No skull fracture. Visualized paranasal sinuses, mastoid air cells and middle ears are clear. CT/CT head/brain wo IV con IMPRESSION: Unremarkable exam.
[2022-12-17 15:03] VITALS: BP 116/80; BP 96/50; PULSE 64; PULSE 65; RESP 14; TEMP 35.5; O2SAT 94; O2SAT 96; BMI 23.0
--- NOTE | 2022-12-17 15:12 | ED.GENADULT ---
HPI - General Adult General Chief complaint: Dizziness Stated complaint: VOMITING PER EMS Time Seen by Provider: 12/17/22 15:12 Source: patient and EMS Mode of arrival: EMS Limitations: no limitations History of Present Illness HPI narrative: 62-year-old male with history of anxiety, depression, low back pain, GERD who presents to the ER for evaluation of possible seizure activity at home. Patient's reports that after he ate a sandwich he went to the couch reporting not feeling well. He felt weak and like his blood pressure might be low. He has his to get the blood pressure cuff and he suddenly had his eyes roll back and started vomiting. reports he had tonic clonic seizure-like activity and continued to vomit. She states the seizure-like activity lasted seconds. She pulled him forward to protect his airway and he shortly after came to. He was not confused after the event. No trauma or fall. 911 was called. Patient denies any similar episodes in the past. No history of seizure disorder. He feels back to baseline. He denies any drug or alcohol use. He reports new right wrist pain for the last couple of weeks after playing horseshoes. He has been wearing a brace. Otherwise no other changes in his medical history. MD complaint: Question seizure activity, vomiting Onset (ago): hour(s) (1) Pain Consistency: now resolved Relieving factors: none Exacerbating factors: none Associated symptoms: weakness Treatments prior to arrival: none Related Data Previous Rx's Medication Instructions Recorded lidocaine 4 % topical patch 1 patch topical DAILY PRN pain #30 09/11/22 (Aspercreme (lidocaine)) ea loratadine 10 mg tablet (Allergy 10 mg PO DAILY PRN allergic 11/26/22 Relief (loratadine)) symptoms 90 days #90 tabs omeprazole 20 mg capsule,delayed 20 mg PO DAILY #30 caps 11/26/22 release sertraline 25 mg tablet 25 mg PO DAILY #30 tabs 11/26/22 sildenafil 50 mg tablet 50 mg PO DAILY PRN sexual activity 11/29/22 30 days #5 tabs Brace,wrist (Wrist Brace - one) #1 ea 12/02/22 Allergies Allergy/AdvReac Type Severity Reaction Status Date / Time No Known Allergies Allergy Verified 11/26/22 14:57 Review of Systems Review of Systems: Yes all other systems are reviewed and are negative PMFSH Past Medical History Medical History Anxiety Colon cancer Depression Screening for colon cancer Screening for diabetes mellitus Screening for hyperlipidemia Screening for prostate cancer Surgical History History of colonoscopy Family History Family History Mother Hypertension Diabetes Father No problems noted. Other Substance use disorder Social History Social History Housing: Apartment Alcohol intake: never Patient Tobacco Use Status: Current everyday Tobacco user Tobacco use type: Cigarette Cigarette Packs Per Day: 1 Cigarettes Per Day: 20 Smoked in Last 30 Days: Yes e-Cigarette/Vaping Use: Never Used Second Hand Smoke Exposure: No Use of substances other than those prescribed or required for medical reasons: No Advance Directives: No Advance Directives Information Provided: No service: No Current occupational status: unemployed and disabled Current occupation: Right Handed Cognitive needs: No Hearing needs: No Vision needs: Yes (glasses) Physical Exam ED Vital Signs: Vital Signs - 24 hr 12/17/22 15:03 Temperature 96 F L Pulse Rate 64 Respiratory Rate 14 Blood Pressure 96/50 L Pulse Oximetry 94 Oxygen Delivery Method Room Air BMI result Body Mass Index 23.0 Appearance: Alert. Oriented X3. No acute distress. Head: normocephalic, atraumatic. Eyes: Pupils equal, round and reactive to light. ENT: Pharynx normal. No tonsillar swelling or exudate. Neck: Normal inspection. Neck supple. CVS: Normal heart rate and rhythm. Pulses normal. Respiratory: No respiratory distress. Breath sounds normal. Abdomen: Soft and nontender. +BS x4 Skin: Skin warm and dry. Normal skin color. Normal skin turgor. No rashes. Extremities: No lower extremity edema. right wrist with tenderness at the radial head, limited ROM due to pain. no swelling or deformity. NV intact distally, 2+ radial pulse. Neuro/psych: Oriented X 3. No motor deficit. No sensory deficit. CN II-XII intact. Normal speech and cognition. Medical Decision Making Medical Decision Making MDM Narrative: 62-year-old male with history of anxiety, depression, GERD presents to the ER for evaluation of an episode recurrent vomiting and what sounds like possible seizure activity witnessed by the . No trauma. Patient arrives to the ER alert and oriented with a nonfocal neuro exam. He is feeling much better. His up pressure is on the softer side, he is asymptomatic. Will plan to check CT of head given 1st episode like this, lab workup, U tox, alcohol level, EKG. Will also get x-rays of the wrist given his complaints. Differential Diagnosis Differential Diagnoses: The differential diagnosis associated with the presentation includes Orthostatic hypotension, new onset seizure, aspiration, focal seizure, alcohol withdrawal seizure Admission/Observation Consideration of admission/observation: Escalation of care including admission/observation considered Independent Interpretation I performed an independent interpretation of an: EKG, Plain X-Ray and CT Scan Interpretation: xr without acute fracture ekg with normal sinus rhythm, HR 66 bpm, Normal QTC, normal KS interval, no ST segment elevations or depressions. CT scan without any edema or acute bleed Radiology Impression Discussion of test interpretation with radiology: I have reviewed the radiologist's reading. Radiologist Impression: XR/XR wrist RT min 3V IMPRESSION: Unremarkable right wrist. CT/CT head/brain wo IV con IMPRESSION: Unremarkable exam. Independent Historian Clinical information obtained from an independent historian. History obtained from or confirmed by: Spouse and EMS External Record Review External record reviewed: Prior outpatient labs Critical Care Time Critical Care Time Critical Care Time: No Discharge Plan Discharge Clinical Impression: Vomiting Patient Disposition: Still a Patient Prescriptions: No Action sertraline 25 mg tablet 25 mg PO DAILY Qty: 30 1RF omeprazole 20 mg capsule,delayed release(DR/EC) 20 mg PO DAILY Qty: 30 1RF sildenafil 50 mg tablet 50 mg PO DAILY PRN (Reason: sexual activity) 30 Days Qty: 5 2RF Rx Instructions: administer 30 minutes to 4 hours before activity (DME) Wrist [facility]ace [facility] See Rx Instructions .Route Qty: 1 0RF Rx Instructions: As directed lidocaine [Aspercreme (lidocaine)] 4 % adhesive patch,medicated 1 patch topical DAILY PRN (Reason: pain) Qty: 30 0RF loratadine [Allergy Relief (loratadine)] 10 mg tablet 10 mg PO DAILY PRN (Reason: allergic symptoms) 90 Days Qty: 90 1RF
[2022-12-17 16:32] LABS: MANUAL DIFF FLAG NO
[2022-12-17 16:41] LABS: Basophils Percent Auto 0.2 % (0-2); Eosinophils Percent Auto 0.3 % (0-4); Hematocrit 44.7 % (42.0-52.0); Hemoglobin 15.1 g/dl (14.0-18.0); Imm Gran Abs Auto 0.07 X10*3/uL (0.00-0.03); Imm Gran Pct Auto 0.5 % (0.0-0.4); Lymphocytes Absolute Auto 0.9 X10*3/uL (1.2-4.9); Lymphocytes Percent Auto 6.8 % (20-40); Mean Corpuscular HGB Conc 33.8 g/dl (31.0-36.0); Mean Corpuscular Volume 88.7 fL (80.0-98.0); Mean Platelet Volume 10.6 fL (9.4-12.4); Monocytes Percent Auto 7.5 % (2-11); Neutrophils Absolute Auto 11.1 x10*3/uL (2.0-8.3); Neutrophils Percent Auto 84.7 % (45-73); Platelet Count 232 X10*3/uL (160-400); Red Blood Count 5.04 X10*6/uL (4.60-5.80); Red Cell Distribution Width 13.5 % (11.0-16.0); White Blood Count 13.1 X10*3/uL (4.8-10.8)
[2022-12-17 16:48] LABS: Alanine Aminotransferase 9 U/L (0-40); Albumin Level 4.1 g/dL (3.5-5.0); Alkaline Phosphatase 73 U/L (39-117); Anion Gap 9 (12-20); Aspartate Amino Transferase 15 U/L (5-37); Bilirubin Total 0.5 mg/dL (0.0-1.0); Blood Urea Nitrogen 16 mg/dL (9-16); Calcium 9.9 mg/dL (8.4-10.2); Carbon Dioxide 27 mmol/L (22-29); Chloride 107 mmol/L (96-108); Creatinine Clr Calc Pharmacy 81.6; Estimated Glomerular Filt Rate > 60; Glucose Random 103 mg/dL (60-115); Lipase 30 U/L (8-78); Potassium 3.8 mmol/L (3.3-5.1); Sodium 139 mmol/L (135-145); Total Protein 7.3 g/dL (6.5-8.0)
[2022-12-17 16:51] LABS: Ethanol < 10 mg/dL
[2022-12-17 17:28] LABS: Magnesium 2.1 mg/dL (1.6-2.6)
[2022-12-17 18:07] VITALS: BP 110/76; PULSE 68; RESP 18; TEMP 36.5; O2SAT 99
[2022-12-17 18:15] LABS: Amphetamine Screen Urine Not Detected (Not Detect); Barbiturates, Urine Not Detected (Not Detect); Benzodiazepines Screen Urine Not Detected (Not Detect); Cannabinoid Screen Urine Not Detected (Not Detect); Cocaine Screen Urine Not Detected (Not Detect); Fentanyl, urine Not Detected (Not Detect); Opiate Screen Urine Not Detected (Not Detect); Phencyclidine Screen Urine Not Detected (Not Detect)
[2022-12-17 18:24] LABS: Appearance Urine Clear; Color Urine Yellow; Glucose Urine UA Negative (Negative); Leukocyte Esterase Urine Trace (Negative); Nitrite Urine Negative (Negative); PH 6.5 (5.0-9.0); UMIC TRIGGER UACC YES; Urine Blood Negative (Negative); Urine Ketones Trace mg/dL (Negative); Urine Protein Trace mg/dL (Neg-Trace)
[2022-12-17 18:27] LABS: Troponin-I High Sensitivity < 2.7 ng/L (<3.5-35.0)
[2022-12-17 18:43] LABS: Bacteria Urine None Seen (None Seen); Hyaline Casts Urine 0-2 /LPF (0-2); RBC Urine 0-2 /HPF (0-2); Squamous Epithelial Cell Urine 0-2 /HPF (0-2); WBC Urine 0-5 /HPF (0-5)
[2022-12-17 18:46] VITALS: BP 119/68; BP 122/61; PULSE 66; PULSE 67
[2022-12-17 18:47] VITALS: BP 120/67; PULSE 72
== END 2022-12-17 19:05 | disposition home or self-care (01) ==
PROVIDERS: Physician Assistant; Emergency Provider Student in an Organized Health Care Education/Training Program; PCP Internal Medicine
DX: R11.10 Vomiting, unspecified (principal); R53.1 Weakness; M25.531 Pain in right wrist; K21.9 Gastro-esophageal reflux disease without esophagitis; F41.9 Anxiety disorder, unspecified; F32.0 Major depressive disorder, single episode, mild; F17.210 Nicotine dependence, cigarettes, uncomplicated; Z79.899 Other long term (current) drug therapy
CPT/HCPCS: 36415; 70450; 73110; 80053; 80307; 81001; 82550; 83690; 83735; 84484; 85025; 93005; 99284; 99285

== ENCOUNTER 2022-12-23 11:33 | Outpatient (AMB) | payer OTHER, SELFPAY ==
--- NOTE | 2022-12-23 11:39 | MHC.PC.OV ---
Vital Signs 12/23/22 11:40 Height 5 ft 10 in Weight 161 lb BMI 23.1 BP 105/60 Blood Pressure Location Lt brachial Position Sitting Pulse 75 Pulse Source Pulse Oximeter Oxygen Delivery Method Room Air Intake Visit Reasons: ED f/u vomiting, eyes rolling back Audit Senior Associate Name: [id number] Lockhart Information Interpreted: non-clinical & clinical [employer]inery [employer]: Not Required per policy Accompanied by: Self / Same As Patient Allergies No Known Allergies Allergy (Verified 12/23/22 12:17) Medication List - Last Reconciled 12/23/22 by FLORINDA Garcia Brace,wrist (Wrist Brace - one) As directed lidocaine 4% (Aspercreme (lidocaine)) 1 patch topical DAILY PRN loratadine (Allergy Relief (loratadine)) 10 mg PO DAILY PRN 90 days omeprazole 20 mg PO DAILY sertraline 25 mg PO DAILY sildenafil 50 mg PO DAILY PRN 30 days Tobacco use date assessed: 09/11/22 Dental Screening Dental Screen Date: 12/23/22 Did you have a dental visit in the last 12 months?: Yes Did you have a dental problem in the last 6 months where you did not have access to dental care?: No Was dental information given to patient?: Patient has dentist HPI HPI Comments History of Present Illness Details 62-year-old male past medical history significant for degenerative spondylolisthesis, with dieting, depression, GERD, depression. Patient Dr. Ashby patient presents today for an ER follow-up. Patient was seen at [facility] Room for possible seizure activity at home patient's reported that he was eating a sandwich any went to the couch reporting not feeling well night he felt weak like his blood pressure was low. Patient's blood pressure went to get the BP cuff and suddenly he had a episode where his eyes rolled back into his head and he started vomiting. reported he had tonic clonic seizure like activity and continue to vomit that lasted seconds. Following that event patient was not confused denied any trauma or fall 911 was called. Admission was discussed with patient however patient felt like he was back to his baseline and he wanted to be discharged home. Head CT unremarkable, lab work unremarkable, orthostatic blood pressure negative. Seizure versus syncope. Patient was discharged home in advised to follow-up with a neurologist and a process safety manager for further evaluation. Patient denies reoccurent episodes as noted above. Denies CP,palpitations and syncope. 3-day holyer monitor ordered to [facility] evaluate for arrhythmia. FOR[facility]LY [facility], LAT[facility] Medical History (Updated 12/23/22 @ 12:26 by FLORINDA Garcia) Seizure Syncope Screening for prostate cancer Screening for hyperlipidemia Screening for colon cancer Screening for diabetes mellitus Anxiety Depression Colon cancer Surgical History History of colonoscopy Family History Mother Hypertension Diabetes Father No problems noted. Other Substance use disorder Social History Housing: Apartment Alcohol intake: never Patient Tobacco Use Status: Current everyday Tobacco user Tobacco use type: Cigarette Cigarette Packs Per Day: 1 Cigarettes Per Day: 20 e-Cigarette/Vaping Use: Never Used Second Hand Smoke Exposure: No service: No Current occupational status: unemployed and disabled Current occupation: Right Handed Cognitive needs: No Hearing needs: No Vision needs: Yes (glasses) Questionnaire PHQ-9 Over the last 2 weeks, how often have you been bothered by any of the following problems? 1. Little interest or pleasure in doing things: several days 2. Feeling down, depressed, or hopeless: more than half the days 3. Trouble falling or staying asleep, or sleeping too much: nearly every day 4. Feeling tired or having little energy: nearly every day 5. Poor appetite or overeating: nearly every day 6. Feeling bad about yourself - or that you are a failure or have let yourself or your family down: more than half the days 7. Trouble concentrating on things, such as reading the newspaper or watching television: more than half the days 8. Moving or speaking so slowly that other people could have noticed. Or the opposite - being so fidgety or restless that you have been moving around a lot more than usual: more than half the days 9. Thoughts that you would be better off or of hurting yourself in some way: not at all Total score: 18 Depression Screening Interpretation: Positive Depression Screening Follow-up: Community Mental Health Worker F/U 38997 - PHQ-9 Billing: Yes Source: Developed by Drs. Wilfredo Figueroa, Tanja Garcia, Reilly Garcia and colleagues, with an educational mary from [employer]. Thrive Questionnaire Date Thrive assessed: 09/11/22 AUDIT C Alcohol Use Questionnaire (AUDIT-C) 1. How often do you have a drink containing alcohol?: Never 3. How often do you have six or more drinks on one occasion?: Never Total Score: 0 Score Reviewed/Action Taken: No HEIDI-7 AMB Questionnaire HEIDI-7 Date HEIDI - 7 assessed: 09/11/22 Source: Developed by Drs. Wilfredo Figueroa, Tanja Garcia, Reilly Garcia and colleagues, with an educational mary from [employer]. Review of Systems Const Denies chills, Denies fatigue, Denies fever(s) and Denies poor appetite Eyes Denies no additional complaints ENT Reports Normal hearing present Card Denies chest pain, Denies syncope, Denies rapid heart rate and Denies dyspnea Resp Denies cough and Denies dyspnea GI Denies change in stool character, Denies constipation, Denies diarrhea, Denies nausea and Denies vomiting Denies dysuria, Denies urinary frequency and Denies urinary urgency Neuro Reports Normal hearing present, Denies confusion and Denies syncope Psych Denies confusion Endo Denies fatigue Physical exam (Primary Care) Vital Signs: Last Vital Signs Pulse 75 12/23/22 11:40 BP 105/60 12/23/22 11:40 Oxygen Delivery Method Room Air 12/23/22 11:40 BMI result Body Mass Index 23.1 Tobacco/Smoking Status: Tobacco use Status Tobacco use date assessed 09/11/22 12/23/22 11:41 Patient Tobacco Use Status Current everyday Tobacco 12/23/22 11:41 Tobacco use type Cigarette 12/23/22 11:41 e-Cigarette/Vaping Use Never Used 12/23/22 11:41 PHQ-9: PHQ-9 Score PHQ-9: Total score 18 12/23/22 11:41 Depression Screening Interpretation: Positive Depression Screening Follow-up: Community Mental Health Worker F/U Thrive Assessment: Date of Thrive Assessment Date Thrive assessed 09/11/22 12/23/22 11:41 Const General: No confusion Orientation/consciousness: No confusion HENMT Head: Yes normocephalic and Yes atraumatic Eyes Conjunctivae: conjunctivae normal Chest Chest palpation & inspection: normal inspection of the chest Resp Effort & Inspection: normal respiratory effort Auscultation: clear to auscultation bilaterally, no crackles, no rhonchi and no wheezes Cardio Rate: regular rate Rhythm: regular rhythm Heart sounds: S1 normal heart sound present and S2 normal heart sound present GI Inspection: Yes normal to inspection Neuro General: No confusion Cranial nerves: Yes Normal hearing present Extrem General: No edema Assessment and Plan Assessment & Plan (1) Seizure: Code(s): R56.9 - Unspecified convulsions Plan: Patient reffered to neurology for futhure evalutation for possible new onset of seziure disorder. (2) Syncope: Code(s): R55 - Syncope and collapse Plan: 3-day holter monitor ordered to evaluate for possible arrhythmia that could result in syncopal episode. Referral placed to cardiology. Plan Keep scheduled follow up wiht pcp in 1 month or follow up sooner if needed. Orders: Orders ECG 3 day holter monitor Today R55 - Syncope and collapse Referrals Neurology Referral R56.9 - Unspecified convulsions Cardiology Referral R55 - Syncope and collapse Coding Level of Care Code Est Pt Level 3 (26218) Diagnoses Seizure R56.9 Syncope R55
[2022-12-23 11:40] VITALS: BP 105/60; PULSE 75; BMI 23.1
== END 2022-12-23 12:26 | disposition home or self-care (01) ==
PROVIDERS: PCP Internal Medicine; Visit Provider Nurse Practitioner Family
DX: R56.9 Unspecified convulsions (principal); R55 Syncope and collapse
CPT/HCPCS: 99213

== ENCOUNTER 2022-12-24 08:12 | Outpatient (AMB) | payer OTHER, SELFPAY ==
--- NOTE | 2022-12-24 08:15 | MHC.OFFVIS ---
Intake Vital Signs 12/24/22 08:18 Height 5 ft 10 in Weight 160 lb BMI 23.0 BP 118/82 Blood Pressure Location Rt brachial Position Sitting Pulse 75 Pulse Source Pulse Oximeter Pulse Oximetry (%) 98 Oxygen Delivery Method Room Air Intake Visit Reasons: INP-Convulsions Intake Note: Patient presents for convulsions. Patient states I was eating a sandwich and started feeling really bad sweating and feeling very dizzy and all of a sudden I passed out for 3 seconds and when I woke up I threw up. Allergies No Known Allergies Allergy (Verified 12/24/22 08:22) Medication List - Last Reconciled 12/24/22 by Odalis Lr, FLORINDA Brace,wrist (Wrist Brace - one) As directed lidocaine 4% (Aspercreme (lidocaine)) 1 patch topical DAILY PRN loratadine (Allergy Relief (loratadine)) 10 mg PO DAILY PRN 90 days omeprazole 20 mg PO DAILY sertraline 25 mg PO DAILY sildenafil 50 mg PO DAILY PRN 30 days HPI HPI Comments History of Present Illness Details Right handed 62-yr-old male presents for neurological evaluation of: new onset convulsion. Pt reports on 12/17/22 he had his 1st ever convulsive episode. He states he was feeling well, he had eaten an egg and cheese sandwich around 1:30pm, afterwhich he was sitting down when he started to feel external spinning f/b generalized sweating and felt hot. At this point he asked his APPLIANCE TESTER, to check his BP and blood sugar- she told him it was normal. At that point he felt like he would vomit. He started to vomit and then he had LOC, eyes rolling back and shaking x's a few seconds. There was no tongue biting or urinary incontinence. His APPLIANCE TESTER had called 911, pt was able to walk (walked down from the 4th floor w/o difficulty) when the flattening machine operator arrived. He denies postictal confusion, but did feel a bit tired. [place] [facility] [place] work-up was unremarkable: CT/CT head/brain wo IV con: Unremarkable exam. CBC- WBC 13.1 H otherwise WNL CMP- WNL Tropinin- negative Urine tox screen- negative EGK- NSR Orthostatic BPs- normal per ER note. He states he had slept well the night before. He denies any preceding infections, injuries. He does have GERD s/s, but denies any usual severe postprandial GI pain. He denies usual constipation, but the following day after the episode he did have constipation. Denies usual dizziness, syncope, snoring, apneas/gasping arousals. Any history of concussion or head injury? Denies Any history of significant musculoskeletal disorders? Chronic long back pain, gait diff s/p work injury > 10 yrs ago, leg cramps Any history of cardiovascular disorders? Denies Any history of mood disorders? anxiety, depression Any history of coagulopathy disorders? denies Any history of metabolic disorders? denies Any history of neurological disorders? Denies. No h/o seizures. No h/o spacing out. No h/o syncope. Any family history of a similar disorder? Denies [facility] Medical History (Updated 12/23/22 @ 12:26 by FLORINDA Garcia) Seizure Syncope Screening for prostate cancer Screening for hyperlipidemia Screening for colon cancer Screening for diabetes mellitus Anxiety Depression Colon cancer Surgical History History of colonoscopy Family History Mother Hypertension Diabetes Father No problems noted. Other Substance use disorder Social History Housing: Apartment Alcohol intake: never Patient Tobacco Use Status: Current everyday Tobacco user Tobacco use type: Cigarette Cigarette Packs Per Day: 1 Cigarettes Per Day: 20 e-Cigarette/Vaping Use: Never Used Second Hand Smoke Exposure: No service: No Current occupational status: unemployed and disabled Current occupation: Right Handed Cognitive needs: No Hearing needs: No Vision needs: Yes (glasses) Review of Systems Const All systems reviewed & are unremarkable except as noted in HPI and below Physical Exam Vital Signs: Last Vital Signs Pulse 75 12/24/22 08:18 BP 118/82 12/24/22 08:18 Pulse Ox 98 12/24/22 08:18 Oxygen Delivery Method Room Air 12/24/22 08:18 BMI result Body Mass Index 23.0 Const General: cooperative and no acute distress Orientation/consciousness: patient oriented x3 HEENT Head: Yes normocephalic Resp Effort & Inspection: normal respiratory effort and able to speak in complete sentences Neuro General: patient oriented x3 and CN's II-XI intact bilaterally Gait exam (Neuro): Antalgic gait present and Assistive device used (cane) Motor exam (neuro): 5/5 motor strength present throughout Deep tendon reflexes (DTR's): Right triceps reflex intensity grade: 2+, Left triceps reflex intensity grade: 2+, Rt Biceps (C5, C6): 2+, Left biceps reflex intensity grade: 2+, Left brachioradialis reflex intensity grade: 2+, Right patellar reflex intensity grade: 2+ and Left patellar reflex intensity grade: 2+ Pupils: Normal pupillary reactivity/response: bilateral Psych Appearance: grossly normal Mental Status: mental status grossly normal Speech and movement: Normal speech and movement present Affect: normal affect Attitude: cooperative Thought process: Normal thought process present Assessment & Plan Assessment & Plan (1) Syncope: Code(s): R55 - Syncope and collapse (2) Seizure: Code(s): R56.9 - Unspecified convulsions Plan Convulsive episode was a/w GI upset, vomiting, eye rolling, some tonic-clonic shaking which may be epileptic, however episode was transient and pt had no significant post-ictal confusion which raises suspicion for syncope/vasovagal syncope. Pt advised to undergo EEG to assess for epileptic activity. Pt advised to undergo brain MRI w/wo to assess for central infectious, inflammatory, vascular etiologies of new onset convulsive episode. Pt has been referred for cardiology eval- will f/u on status. Pt advised to NOT drive or engage in high risk activities until etiology of convulsive episode is determined. Pt to notify us if he has any additional s/s. F/u after review of above and in 3 months or sooner prn. Coding Level of Care Code New Pt Level 4 (09480) Diagnoses Syncope R55 Seizure R56.9
[2022-12-24 08:18] VITALS: BP 118/82; PULSE 75; O2SAT 98; BMI 23.0
== END 2022-12-24 09:21 | disposition home or self-care (01) ==
PROVIDERS: PCP Internal Medicine; Visit Provider Nurse Practitioner Family
DX: R55 Syncope and collapse (principal); R56.9 Unspecified convulsions
CPT/HCPCS: 99204

== ENCOUNTER → 2022-12-24 08:12 | Outpatient (BNVA) | payer OTHER, SELFPAY | PROVIDERS: PCP Internal Medicine; Visit Provider Nurse Practitioner Family ==

== ENCOUNTER → 2023-01-01 09:21 | Outpatient (REF) | payer OTHER, SELFPAY ==
--- NOTE | 2023-01-01 | HM_ITS ---
Conclusion: 1. Patient was monitored for total period of 2 days and 23 hours 2. Baseline was normal sinus rhythm with average heart of 69 beats per minute 3. No significant pauses noted 4. Rare PACs noted 5. Patient reported 1 event without associated symptoms with no arrhythmias MTDD
== END ==
LOC: HO.CARD 09:21
PROVIDERS: Visit Provider Nurse Practitioner Family
DX: R55 Syncope and collapse (principal)
CPT/HCPCS: 93242

== ENCOUNTER → 2023-01-01 09:30 | Outpatient (BNV) | payer OTHER, SELFPAY | PROVIDERS: Visit Provider Internal Medicine Cardiovascular Disease | DX: I49.1 Atrial premature depolarization (principal) | CPT/HCPCS: 93244 ==

== ENCOUNTER 2023-01-29 10:37 | Outpatient (AMB) | payer OTHER, SELFPAY ==
[2023-01-29 10:50] VITALS: BP 135/73; PULSE 68; O2SAT 100; BMI 23.9
--- NOTE | 2023-01-29 10:50 | MHC.OFFVIS ---
Intake Vital Signs 01/29/23 10:50 Height 5 ft 10 in Weight 166 lb 10.711 oz BMI 23.9 BP 135/73 Blood Pressure Location Rt brachial Position Sitting Pulse 68 Pulse Source Pulse Oximeter Pulse Oximetry (%) 100 Oxygen Delivery Method Room Air Intake Visit Reasons: Colon Screening (Hx of Polyp) Intake Note: Pt presents to the office today for a colonoscopy screening (Hx of Polyp). Pt states he is overall feeling well and denies any GI issues. Allergies No Known Allergies Allergy (Verified 01/29/23 10:52) HPI Colon Screening (Hx of Polyp) HPI Details 62 year old? male here today for pre colonoscopy screening.? Patient was sent to us by his PCP.? ?Patient had colonoscopy in 2016 that showed for polyps, 1 hyperplastic and 3 tubular adenoma. Patient denies any gastrointestinal symptoms in the past or at present.? Denies any personal or family history of gastrointestinal disease, colon polyps, or cancer.? Denies history of difficulty with sedation or anesthesia in the past.? Negative for history of sleep apnea.? Denies any history of cardiac, renal, pulmonary, or hepatic disease.?? No history of infectious? diseases like hepatitis A, B, C, HIV or tuberculosis.? Patient is not on any anticoagulation therapy. FOR[facility]LY [facility], LAT[facility] Medical History Seizure Syncope Screening for prostate cancer Screening for hyperlipidemia Screening for colon cancer Screening for diabetes mellitus Anxiety Depression Colon cancer Surgical History History of colonoscopy Family History Mother Hypertension Diabetes Father No problems noted. Other Substance use disorder Social History Housing: Apartment Alcohol intake: never Patient Tobacco Use Status: Current everyday Tobacco user Tobacco use type: Cigarette Cigarette Packs Per Day: 1 Cigarettes Per Day: 20 e-Cigarette/Vaping Use: Never Used Second Hand Smoke Exposure: No service: No Current occupational status: unemployed and disabled Current occupation: Right Handed Cognitive needs: No Hearing needs: No Vision needs: Yes (glasses) Review of Systems Const Denies weight gain and Denies weight loss ENT Reports no additional complaints, Denies dysphagia and Denies odynophagia Card Reports no additional complaints Resp Reports no additional complaints GI Denies abdominal pain, Denies belching, Denies melena, Denies bloating, Denies change in bowel habits, Denies dysphagia, Denies excessive flatus, Denies dyspepsia, Denies heartburn, Denies diarrhea, Denies loose stools, Denies nausea, Denies odynophagia and Denies vomiting Reports no additional complaints Musc Reports no additional complaints Neuro Reports no additional complaints Psych Reports no additional complaints Endo Reports no additional complaints Physical Exam Vital Signs: Last Vital Signs Pulse 68 01/29/23 10:50 BP 135/73 01/29/23 10:50 Pulse Ox 100 01/29/23 10:50 Oxygen Delivery Method Room Air 01/29/23 10:50 BMI result Body Mass Index 23.9 Const General: healthy appearing, no acute distress and well developed Nutritional Appearance: well nourished Orientation/consciousness: patient oriented x3 HEENT Head: Yes normal to inspection, Yes normocephalic and Yes atraumatic Face and sinus: Yes normal facial exam Mouth: Normal oral and palatal mucosa present Throat: Yes posterior oropharynx normal, Yes tonsils normal and Yes uvula midline Eyes General: appearance normal, both eyes and all related structures Neck Neck: Yes normal visual inspection, Yes full ROM and Yes trachea midline Thyroid: Thyroid normal Resp Effort & Inspection: normal respiratory effort, able to speak in complete sentences, no tracheal deviation and symmetric chest movement Auscultation: clear to auscultation bilaterally Cardio Rate: regular rate Heart sounds: S1 normal heart sound present and S2 normal heart sound present GI Inspection: Yes normal to inspection and No distended Palpation (GI): Soft to palpation, not firm, nontender and No hepatosplenomegaly present Auscultation: normal bowel sounds General: Yes no CVA tenderness Back/Spine/Pelvis Back: no CVA tenderness Skin General skin exam: elasticity normal, turgor normal and dry skin Neuro General: patient oriented x3 Psych Appearance: grossly normal Mental Status: mental status grossly normal Assessment & Plan Assessment & Plan (1) Tubular adenoma of colon: Code(s): D12.6 - Benign neoplasm of colon, unspecified (2) Screening for colon cancer: Code(s): Z12.11 - Encounter for screening for malignant neoplasm of colon (3) Chronic GERD: Code(s): K21.9 - Gastro-esophageal reflux disease without esophagitis (4) Epigastric pain: Code(s): R10.13 - Epigastric pain Plan Patient denies any GI, cardiac or respiratory symptoms.? Denies any issues with anesthesia in the past.? Denies any history of sleep apnea.? No history infectious diseases in the past or present.? Not on any anticoagulation therapy.? No family history of colon cancer or polyps.? Patient had tubular adenoma in 2016. Patient denies melena, hematochezia, unintentional weight loss or ribbon like stools.? Patient had vasovagal, questioning syncopal, epileptic episode back in December. Patient was evaluated by Cardiology and cleared. Currently patient is waiting to go for EEG study. He is not on any medications. Patient denies ever having does kind episodes before. Patient is not a drinker and does not use any drugs. Patient is on omeprazole daily. Because of the episode of vomiting and syncope patient is going for upper GI series tomorrow. He should be evaluated also with upper endoscopy. Patient is being worked up for seizure disorder awaiting EEG. I will see him in 6 weeks, sooner on as needed basis. Patient is agreeable to this plan and verbalizes understanding of instructions. He was given the opportunity to ask questions and all questions answered. Thank you for allowing me to participate in his care Coding Level of Care Code New Pt Level 4 (23953) Diagnoses Tubular adenoma of colon D12.6 Screening for colon cancer Z12.11 Chronic GERD K21.9 Epigastric pain R10.13 Time Spent (min) 45 Comment 30 minutes spent with patient and additional 15 minutes spent reviewing his records
== END 2023-01-29 11:32 | disposition home or self-care (01) ==
PROVIDERS: PCP Internal Medicine; Visit Provider Nurse Practitioner Family
DX: D12.6 Benign neoplasm of colon, unspecified (principal); Z12.11 Encounter for screening for malignant neoplasm of colon; K21.9 Gastro-esophageal reflux disease without esophagitis; R10.13 Epigastric pain
CPT/HCPCS: 99204

== ENCOUNTER → 2023-01-29 10:37 | Outpatient (BNVA) | payer OTHER, SELFPAY | PROVIDERS: PCP Internal Medicine; Visit Provider Nurse Practitioner Family ==

== ENCOUNTER 2023-01-31 08:15 | Outpatient (REF) | payer OTHER, SELFPAY ==
--- NOTE | ~2023-01-31 | FL_ITS ---
EXAMINATION: XR GI SERIES CLINICAL INFORMATION: Gastroesophageal reflux disease without esophagitis. COMPARISON: None available. TECHNIQUE: Upper GI was performed using thin and thick barium and effervescent granules. FINDINGS: There is gastroesophageal reflux. No hernia is seen. There is question of mild mucosal irregularity/esophagitis. No esophageal stricture. The stomach and duodenum are normal. No fold thickening, mass, ulcer or stricture. FLUOROSCOPY TIME: 49 seconds DOSE AREA PRODUCT: 65 mGy-m2 (microgray-meter squared). Total dose 60 mGy. 33 saved fluoroscopic images. FL/FL upper GI series IMPRESSION: Gastroesophageal reflux. Question mild esophagitis.
== END 2023-01-31 08:16 | disposition home or self-care (01) ==
LOC: HO.XRAY 08:15
PROVIDERS: PCP Internal Medicine; Visit Provider Internal Medicine
DX: K21.9 Gastro-esophageal reflux disease without esophagitis (principal)
CPT/HCPCS: 74240

== ENCOUNTER → 2023-01-31 08:17 | Outpatient (BNV) | payer OTHER, SELFPAY | PROVIDERS: PCP Internal Medicine; Visit Provider Radiology Diagnostic Radiology | DX: K21.9 Gastro-esophageal reflux disease without esophagitis (principal) | CPT/HCPCS: 74246 ==

== ENCOUNTER 2023-02-06 08:20 | Outpatient (AMB) | payer OTHER, SELFPAY ==
[2023-02-06 08:30] VITALS: BP 104/62; PULSE 69; BMI 24.2
--- NOTE | 2023-02-06 08:30 | MHC.OFFVIS ---
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/ Odalis Lr/Isma PCP conv vs syncope Intake Note: NPV Stunt Person Required: Yes Stunt Person Language: Marketing Technology Coordinator Name: Kia [id number] Accompanied by: Self / Same As Patient Allergies No Known Allergies Allergy (Verified 02/06/23 08:32) Medication List - Last Reconciled 02/06/23 by Ja Lovell MD Brace,wrist (Wrist Brace - one) As directed lidocaine 4% (Aspercreme (lidocaine)) 1 patch topical DAILY PRN loratadine (Allergy Relief (loratadine)) 10 mg PO DAILY PRN 90 days meloxicam 15 mg PO DAILY 30 days omeprazole 20 mg PO DAILY sertraline 25 mg PO DAILY sildenafil 50 mg PO DAILY PRN 30 days HPI HPI Comments History of Present Illness Details Charles is here for consultation regarding a question of syncope versus seizure. Discussed with patient using wire winding machine tender and also reviewed the records. Apparently, he ate a sandwich and then went to college not feeling well. He felt weak and apparently eyes started rolling back and he started vomiting. There is a question of tonic clonic seizure type activity and he continued to vomit. The seizure type activity apparently last for few seconds. After that, he came around. No previous episodes and no recurrent episodes either. No history of any coronary disease or cardiomyopathy or anything else cardiac sounding. He does not have any other symptoms like angina or shortness of breath. He states he is otherwise fine without any issues. He is also seeing Neurology for possible seizures. [facility] Medical History Seizure Syncope Screening for prostate cancer Screening for hyperlipidemia Screening for colon cancer Screening for diabetes mellitus Anxiety Depression Colon cancer Surgical History History of colonoscopy Family History Mother Hypertension Diabetes Father No problems noted. Other Substance use disorder Social History Housing: Apartment Alcohol intake: never Patient Tobacco Use Status: Current everyday Tobacco user Tobacco use type: Cigarette Cigarette Packs Per Day: 1 Cigarettes Per Day: 20 e-Cigarette/Vaping Use: Never Used Second Hand Smoke Exposure: No service: No Current occupational status: unemployed and disabled Current occupation: Right Handed Cognitive needs: No Hearing needs: No Vision needs: Yes (glasses) Review of Systems Const All systems reviewed & are unremarkable except as noted in HPI and below Reports as per HPI and Reports no additional complaints Eyes Reports as per HPI and Denies no additional complaints ENT Denies no additional complaints and Reports as per HPI Card Reports as per HPI, Reports no additional complaints, Denies acrocyanosis, Denies chest pain, Denies leg edema, Denies lightheadedness, Denies palpitations and Denies dyspnea Resp Reports as per HPI, Denies no additional complaints and Denies dyspnea GI Reports as per HPI and Denies no additional complaints Reports no additional complaints and Reports as per HPI Musc Reports no additional complaints and Reports as per HPI Skin/Breast Reports system reviewed and no additional complaints, except as documented Neuro Reports no additional complaints and Reports as per HPI Psych Reports no additional complaints and Reports as per HPI Endo Reports no additional complaints, Reports as per HPI and Denies palpitations Satnam/Lymph Reports no additional complaints and Reports as per HPI Aller/Immun Reports no additional complaints and Reports as per HPI Physical Exam Vital Signs: Last Vital Signs Pulse 69 02/06/23 08:30 BP 104/62 02/06/23 08:30 BMI result Body Mass Index 24.2 Const General: comfortable and no acute distress Orientation/consciousness: patient oriented x3 HEENT Other: Unremarkable Head: Yes normal to inspection Neck Neck: Yes normal visual inspection Chest Chest palpation & inspection: normal inspection of the chest Resp Auscultation: clear to auscultation bilaterally Cardio Palpation: normal PMI Heart sounds: S1 normal heart sound present, S2 normal heart sound present, no gallops, no murmurs and no rubs GI Palpation (GI): Soft to palpation Back/Spine/Pelvis Other: unremarkable Skin General skin exam: no rashes or lesions noted Neuro General: patient oriented x3 Extrem General: Yes normal to inspection Psych Mental Status: mental status grossly normal Assessment & Plan Assessment & Plan (1) Syncope: Code(s): R55 - Syncope and collapse Plan EKG shows sinus rhythm at 66/Min; no significant ST-T changes and otherwise unremarkable. Normal VA and corrected QT. no evidence of prolonged QT, pre-excitation or Brugada. Recent high sensitivity troponin is also within normal limits. Unremarkable 3 day Holter. Episode could be possibly vasovagal but not clear. We will do a 30 day monitor. Also get an echocardiogram for cardiac function assessment. Follow-up after the above. Orders: Orders ECG 30 day event monitor Today R55 - Syncope and collapse CA echo transthoracic complete Today R55 - Syncope and collapse Coding Level of Care Code New Pt Level 3 (24538) Diagnoses Syncope R55
== END 2023-02-06 08:49 | disposition home or self-care (01) ==
PROVIDERS: PCP Internal Medicine; Visit Provider Internal Medicine
DX: R55 Syncope and collapse (principal)
CPT/HCPCS: 99203

== ENCOUNTER → 2023-02-06 08:20 | Outpatient (BNVA) | payer OTHER, SELFPAY | PROVIDERS: PCP Internal Medicine; Visit Provider Internal Medicine | DX: R55 Syncope and collapse (principal) | CPT/HCPCS: 99202 ==

== ENCOUNTER → 2023-03-11 12:49 | Outpatient (REF) | payer OTHER, SELFPAY ==
--- NOTE | 2023-03-11 12:52 | CA_ITS ---
Transthoracic Echocardiogram Patient (Last, First, Middle): Charles Gautam, Gender: Male Date of : 1960 Age: 62 Procedure Date: 03/11/2023 Procedure Type: Transthoracic Echocardiogram Location: OP Height: 177.8 cm Weight: 75.3 kg BSA: 1.93 m2 Heart Rate: bpm BP: 118 / 80 mmHg Patient Assistant: TO Referring MD: Ja Lovell MD Symptoms: R55 - Syncope and collapse Study Quality: Fair/Contrast ECG Rhythm: Sinus Conclusions: - The left ventricular systolic function is low normal. The calculated ejection fraction is 53% by biplane method. - No obvious valvular pathology seen on this study. Findings Procedure Information Contrast agent, definity, is being given per protocol without apparent complications. Left Ventricle Normal left ventricular cavity size. There is normal left ventricular wall thickness. The left ventricular systolic function is low normal. The calculated ejection fraction is 53% by biplane method. There is no evidence of regional wall motion abnormalities. Diastolic function is normal for age. Right Ventricle Mildly increased right ventricular cavity size. There is normal right ventricular systolic function. Atria The left atrium is normal in size. The right atrium is mildly dilated. Aortic Valve There is a normal trileaflet aortic valve. There is no aortic valve stenosis. There is no aortic valve regurgitation. Mitral Valve The mitral valve appears normal. There is no mitral valve regurgitation. There is no mitral valve stenosis. Pulmonic Valve There is trace pulmonic valve regurgitation. Tricuspid Valve There is mild tricuspid valve regurgitation. There is no evidence of pulmonary hypertension. Great Vessels The asc aorta is normal in size. Venous The inferior vena cava is normal in size and collapses greater than 50% with inspiration. Pericardium/Pleural There is no evidence of pericardial effusion. Prior Study Comparison No prior study available for comparison. Recommendations, Care & Conclusions No obvious valvular pathology seen on this study. Measurements 2D Linear Measurements IVSd: 0.90 0.6-0.9/0.6-1.0 cm LVIDd: 5.00 3.9-5.3/4.2-5.9 cm LVIDd Index: 2.59 2.4-3.2/2.2-3.1 cm/m2 LVIDs: 3.35 2.0-3.6 cm LVPWd: 0.86 0.7-1.1 cm LA Diam: 3.70 2.7-3.8/3.0-4.0 cm LAIDs Index: 1.92 1.5-2.3 cm/m2 LV Mass: 192.13 67-162/88-224 g LV Mass Index: 99.55 43-95/49-115 g/m2 LVOT Diam: 2.10 3.0+(-)1.3 cm 2D Systolic Function EF 4C: 52.20 >55% EF 2C: 53.10 >55% EF BiP: 52.60 >55% Mitral Valve MV VTI: 0.29 MV Pk Zane: 0.80 MV Mn Zane: 0.43 MV Pk Grad: 3.00 MV Mn Grad: 1.00 MV Pk E: 0.60 MV PK A: 0.42 MV Decel Time: 216.00 E/A: 1.40 E'Lateral: 11.20 E'Medial: 6.96 E/E' Med: 8.70 E/E' Lat: 5.40 PHT: 63.00 MVA PHT: 3.49 MVA Continuity: 2.30 Decel [place]: 2.80 Aortic Valve AoV Pk Zane: 1.36 AoV Mn Zane: 0.92 AoV VTI: 0.31 AoV Pk Grad: 7.00 Aov Mn Grad: 4.00 RONNELL Cont.VTI: 2.16 LVOT LVOT Pk Zane: 0.85 LVOT Mn Zane: 0.53 LVOT VTI: 0.20 LVOT Pk Grad: 3.00 LVOT Mn Grad: 1.00 LVOT Diam: 2.10 LVOT Area: 3.46 Diastolic Function MV Pk E: 0.60 MV Pk A: 0.42 E/A: 1.40 E'Medial: 6.96 E/E' Med: 8.70 E' Laterial: 11.20 E/E' Lat: 5.40 Right Ventricle TAPSE (mm): 26.50 TVS' Zane: 10.40 Tricuspid Valve TR Pk Zane: 2.13 TR Pk Grad: 18.00 RA Press: 3.00 RVSP: 21.00 Great Vessels Aorta Sinus of Valsalva: 3.10 2.0-3.[address] [place]: 2.73 1.7-3.4 cm Ao Asc: 3.10 2.1-3.4 cm Updated in Other Vendor System with Status of Final Ja Lovell MD electronically signed on 03/12/2023 12:33:37 PM with status of Final
--- NOTE | 2023-03-11 12:52 | HM_ITS ---
* Procedure time 30 days. Wear time 23 days. * Underlying rhythm is sinus with an average rate of 72/Min. * Occasional supraventricular ectopy. * Occasional ventricular ectopy. One strip with couplets and other with triplets. No significant runs. * No significant pauses or heart block. * No symptoms in diary. MTDD
== END ==
LOC: HO.CARD 12:49
PROVIDERS: PCP Internal Medicine; Visit Provider Internal Medicine
DX: R55 Syncope and collapse (principal)
CPT/HCPCS: 93270; 93306; Q9957

== ENCOUNTER → 2023-03-11 12:52 | Outpatient (BNV) | payer OTHER, SELFPAY | PROVIDERS: PCP Internal Medicine; Visit Provider Internal Medicine | DX: R00.1 Bradycardia, unspecified (principal) | CPT/HCPCS: 93272; 93306 ==

== ENCOUNTER 2023-03-14 08:02 | Outpatient (REF) | payer OTHER, SELFPAY ==
--- NOTE | 2023-03-14 08:05 | EEG_ITS ---
This is a 16-channel EEG with an EKG lead. The patient is reported awake during the tracing. Background EEG rhythm is 5-20 microvolt, 10 hertz with no obvious asymmetry or paroxysmal tendency. Photic stimulation and hypoventilation did not produce any significant abnormality. Cardiac lead did not reveal any significant abnormality. No sharp wave, spikes, or paroxysmal tendency noted. IMPRESSION: Unremarkable EEG. MD ELLEN Roman/EDU / [id number]
== END 2023-03-14 08:03 | disposition home or self-care (01) ==
LOC: HO.NEURO 08:02
PROVIDERS: PCP Internal Medicine; Visit Provider Nurse Practitioner Family
DX: R56.9 Unspecified convulsions (principal); R55 Syncope and collapse
CPT/HCPCS: 95816; 99212

== ENCOUNTER 2023-03-14 11:10 | Outpatient (AMB) | payer OTHER, SELFPAY ==
--- NOTE | 2023-03-14 11:12 | A.OFFVIS_ITS ---
Intake Vital Signs 03/14/23 11:14 Height 5 ft 10 in Weight 168 lb 6.931 oz BMI 24.2 BP 134/64 Blood Pressure Location Lt brachial Position Sitting Pulse 69 Pulse Source Pulse Oximeter Intake Visit Reasons: discuss colo and upper endo Intake Note: Pt presents to the office today to discuss colo and upper endo. Pt states he is feeling well. Pt denies any GI concerns at this time. Allergies No Known Allergies Allergy (Verified 03/19/23 15:24) HPI discuss colo and upper endo HPI Details LAST VISIT Tubular adenoma of colon Screening for colon cancer Chronic GERD Epigastric pain Plan Patient denies any GI, cardiac or respiratory symptoms.? Denies any issues with anesthesia in the past.? Denies any history of sleep apnea.? No history infectious diseases in the past or present.? Not on any anticoagulation therapy.? No family history of colon cancer or polyps.? Patient had tubular adenoma in 2015. Patient denies melena, hematochezia, unintentional weight loss or ribbon like stools.? Patient had vasovagal, questioning syncopal, epileptic episode back in December. Patient was evaluated by Cardiology and cleared. Currently patient is waiting to go for EEG study. He is not on any medications. Patient denies ever having does kind episodes before. Patient is not a drinker and does not use any drugs. Patient is on omeprazole daily. Because of the episode of vomiting and syncope patient is going for upper GI series tomorrow. He should be evaluated also with upper endoscopy. Patient is being worked up for seizure disorder awaiting EEG. I will see him in 6 weeks, sooner on as needed basis. Patient is agreeable to this plan and verbalizes understanding of instructions. He was given the opportunity to ask questions and all questions answered. TODAY'S VISIT: Patient is here today for follow-up and to discuss going for colonoscopy and upper endoscopy. Patient had GI series that showed possible reflux with some mild esophagitis. Patient has seen new role and most likely non epileptic versus vasovagal reaction immediately after nausea and vomiting. Patient also seen automotive service management teacher and is wearing a 30 day Holter monitor. Patient denies any cardiac or respiratory symptoms. One time episode that happened back in December no other symptoms. Patient reports to be feeling well. Moving his bowels well without any issues. He continues to take omeprazole daily. Patient denies any history of sleep apnea. Not on any anticoagulation medication. Denies any issues with anesthesia in the past. As mentioned above patient had tubular adenoma in 2016 and is due to go for colonoscopy. [facility] Medical History Seizure Syncope Screening for prostate cancer Screening for hyperlipidemia Screening for colon cancer Screening for diabetes mellitus Anxiety Depression Colon cancer Surgical History History of colonoscopy Family History Mother Hypertension Diabetes Father No problems noted. Other Substance use disorder Social History Housing: Apartment Alcohol intake: never Patient Tobacco Use Status: Current everyday Tobacco user Tobacco use type: Cigarette Cigarette Packs Per Day: 1 Cigarettes Per Day: 20 e-Cigarette/Vaping Use: Never Used Second Hand Smoke Exposure: No service: No Current occupational status: unemployed and disabled Current occupation: Right Handed Cognitive needs: No Hearing needs: No Vision needs: Yes (glasses) Review of Systems Const Denies weight gain and Denies weight loss ENT Reports no additional complaints, Denies dysphagia and Denies odynophagia Card Reports no additional complaints Resp Reports no additional complaints GI Denies abdominal pain, Denies belching, Denies melena, Denies bloating, Denies change in bowel habits, Denies dysphagia, Denies excessive flatus, Denies dyspepsia, Reports heartburn (Occasional), Denies diarrhea, Denies loose stools, Denies nausea, Denies odynophagia and Denies vomiting Reports no additional complaints Musc Reports no additional complaints Neuro Reports no additional complaints Psych Reports no additional complaints Endo Reports no additional complaints Physical Exam Vital Signs: Last Vital Signs Pulse 69 03/14/23 11:14 BP 134/64 03/14/23 11:14 BMI result Body Mass Index 24.2 Const General: healthy appearing, no acute distress and well developed Nutritional Appearance: well nourished Orientation/consciousness: patient oriented x3 HEENT Head: Yes normal to inspection, Yes normocephalic and Yes atraumatic Face and sinus: Yes normal facial exam Mouth: Normal oral and palatal mucosa present Throat: Yes posterior oropharynx normal, Yes tonsils normal and Yes uvula midline Eyes General: appearance normal, both eyes and all related structures Neck Neck: Yes normal visual inspection, Yes full ROM and Yes trachea midline Thyroid: Thyroid normal Resp Effort & Inspection: normal respiratory effort, able to speak in complete sentences, no tracheal deviation and symmetric chest movement Auscultation: clear to auscultation bilaterally Cardio Rate: regular rate GI Inspection: Yes normal to inspection and No distended Palpation (GI): Soft to palpation, not firm, nontender and No hepatosplenomegaly present Auscultation: normal bowel sounds General: Yes no CVA tenderness Back/Spine/Pelvis Back: no CVA tenderness Skin General skin exam: elasticity normal, turgor normal and dry skin Neuro General: patient oriented x3 Psych Appearance: grossly normal Mental Status: mental status grossly normal Affect: normal affect Results Reviewed Results Reviewed: UPPER GI SERIES FINDINGS: There is gastroesophageal reflux. No hernia is seen. There is question of mild mucosal irregularity/esophagitis. No esophageal stricture. The stomach and duodenum are normal. No fold thickening, mass, ulcer or stricture. FLUOROSCOPY TIME: 49 seconds DOSE AREA PRODUCT: 65 mGy-m2 (microgray-meter squared). Total dose 60 mGy. 33 saved fluoroscopic images. FL/FL upper GI series IMPRESSION: Gastroesophageal reflux. Question mild esophagitis. Assessment & Plan Assessment & Plan (1) Tubular adenoma of colon: Code(s): D12.6 - Benign neoplasm of colon, unspecified (2) Screening for colon cancer: Code(s): Z12.11 - Encounter for screening for malignant neoplasm of colon (3) Chronic GERD: Code(s): K21.9 - Gastro-esophageal reflux disease without esophagitis (4) Epigastric pain: Code(s): R10.13 - Epigastric pain Plan Continue omeprazole daily. Patient was also encouraged to avoid dietary triggers in late night snacking. Will schedule patient for the procedure. Patient denies any cardiac or respiratory symptoms. Reports to be feeling well. Denies any melena, hematochezia, unintentional weight loss or ribbon like stools. Reports occasional dyspepsia without dysphagia or odynophagia. What to expect before during and after the procedure discussed with patient. Good bowel prep and clear liquid diet day before the procedure stressed with patient. I will see him after the procedure, sooner on as needed basis. Patient is agreeable to this plan and verbalizes understanding of instructions. He was given the opportunity to ask questions and all questions answered. Thank you for allowing me to participate in his care Medications: New bisacodyl (Dulcolax (bisacodyl)) take 4 tabs at noon the day before your colonoscopy 20 mg (4 x 5 mg) PO ONCE 4 tabs 0RF 1 day Z12.11 - Encounter for screening for malignant neoplasm of colon polyethylene glycol 3350 (Miralax) As directed by gastroenterology department at [facility] 238 grams PO ONCE 238 grams 0RF Z12.11 - Encounter for screening for malignant neoplasm of colon Coding Level of Care Code Est Pt Level 4 (28369) Diagnoses Tubular adenoma of colon D12.6 Screening for colon cancer Z12.11 Chronic GERD K21.9 Epigastric pain R10.13 Time Spent (min) 35 Comment 20 minutes spent with patient and additional 15 minutes spent reviewing his records
[2023-03-14 11:14] VITALS: BP 134/64; PULSE 69; BMI 24.2
== END 2023-03-14 13:10 | disposition home or self-care (01) ==
PROVIDERS: PCP Internal Medicine; Visit Provider Nurse Practitioner Family
DX: D12.6 Benign neoplasm of colon, unspecified (principal); Z12.11 Encounter for screening for malignant neoplasm of colon; K21.9 Gastro-esophageal reflux disease without esophagitis; R10.13 Epigastric pain
CPT/HCPCS: 99214

== ENCOUNTER 2023-03-19 14:52 | Outpatient (AMB) | payer OTHER, SELFPAY ==
[2023-03-19 15:23] VITALS: BP 110/70; PULSE 78; BMI 26.1
--- NOTE | 2023-03-19 15:23 | MHC.OFFVIS ---
Intake Vital Signs 03/19/23 15:23 Height 5 ft 8 in Weight 171 lb 15.369 oz BMI 26.1 BP 110/70 Blood Pressure Location Lt brachial Position Sitting Pulse 78 Intake Visit Reasons: 6 wk fu after testing Morale Officer Required: Yes Morale Officer Language: Silverware Washer Name: Mary [id number] Accompanied by: Self / Same As Patient Allergies No Known Allergies Allergy (Verified 03/19/23 15:24) Medication List - Last Reconciled 03/19/23 by Ja Lovell MD bisacodyl (Dulcolax (bisacodyl)) 20 mg (4 x 5 mg) PO ONCE 1 day Brace,wrist (Wrist Brace - one) As directed lidocaine 4% (Aspercreme (lidocaine)) 1 patch topical DAILY PRN loratadine (Allergy Relief (loratadine)) 10 mg PO DAILY PRN 90 days meloxicam 15 mg PO DAILY 30 days omeprazole 20 mg PO DAILY polyethylene glycol 3350 (Miralax) 238 grams PO ONCE sertraline 25 mg PO DAILY sildenafil 50 mg PO DAILY PRN 30 days HPI HPI Comments History of Present Illness Details Charles returns for follow-up. Recently seen in consultation regarding question of syncope versus seizure. Discussed with patient using geographic information systems analyst and also reviewed the records. Apparently, he ate a sandwich and then not feeling well. He felt weak and apparently eyes started rolling back and he started vomiting. There is a question of tonic clonic seizure type activity and he continued to vomit. The seizure type activity apparently last for few seconds. After that, he came around. No previous episodes and no recurrent episodes either. No history of any coronary disease or cardiomyopathy or anything else cardiac sounding. He does not have any other symptoms like angina or shortness of breath. He states he is otherwise fine without any issues. He is also seeing Neurology for possible seizures. So far, he has completed an echocardiogram. He is currently wearing the Holter monitor. [facility] Medical History Seizure Syncope Screening for prostate cancer Screening for hyperlipidemia Screening for colon cancer Screening for diabetes mellitus Anxiety Depression Colon cancer Surgical History History of colonoscopy Family History Mother Hypertension Diabetes Father No problems noted. Other Substance use disorder Social History Housing: Apartment Alcohol intake: never Patient Tobacco Use Status: Current everyday Tobacco user Tobacco use type: Cigarette Cigarette Packs Per Day: 1 Cigarettes Per Day: 20 e-Cigarette/Vaping Use: Never Used Second Hand Smoke Exposure: No service: No Current occupational status: unemployed and disabled Current occupation: Right Handed Cognitive needs: No Hearing needs: No Vision needs: Yes (glasses) Review of Systems Const All systems reviewed & are unremarkable except as noted in HPI and below Reports as per HPI and Reports no additional complaints Eyes Reports as per HPI and Denies no additional complaints ENT Denies no additional complaints and Reports as per HPI Card Reports as per HPI, Reports no additional complaints, Denies acrocyanosis, Denies chest pain, Denies leg edema, Denies lightheadedness, Denies palpitations and Denies dyspnea Resp Reports as per HPI, Denies no additional complaints and Denies dyspnea GI Reports as per HPI and Denies no additional complaints Reports no additional complaints and Reports as per HPI Musc Reports no additional complaints and Reports as per HPI Skin/Breast Reports system reviewed and no additional complaints, except as documented Neuro Reports no additional complaints and Reports as per HPI Psych Reports no additional complaints and Reports as per HPI Endo Reports no additional complaints, Reports as per HPI and Denies palpitations Satnam/Lymph Reports no additional complaints and Reports as per HPI Aller/Immun Reports no additional complaints and Reports as per HPI Physical Exam Vital Signs: Last Vital Signs Pulse 78 03/19/23 15:23 BP 110/70 03/19/23 15:23 BMI result Body Mass Index 26.1 Const General: comfortable and no acute distress Orientation/consciousness: patient oriented x3 HEENT Other: Unremarkable Head: Yes normal to inspection Neck Neck: Yes normal visual inspection Chest Chest palpation & inspection: normal inspection of the chest Resp Auscultation: clear to auscultation bilaterally Cardio Palpation: normal PMI Heart sounds: S1 normal heart sound present, S2 normal heart sound present, no gallops, no murmurs and no rubs GI Palpation (GI): Soft to palpation Back/Spine/Pelvis Other: unremarkable Skin General skin exam: no rashes or lesions noted Neuro General: patient oriented x3 Extrem General: Yes normal to inspection Psych Mental Status: mental status grossly normal Assessment & Plan Assessment & Plan (1) Syncope: Code(s): R55 - Syncope and collapse Plan EKG shows sinus rhythm at 66/Min; no significant ST-T changes and otherwise unremarkable. Normal RI and corrected QT. no evidence of prolonged QT, pre-excitation or Brugada. Recent high sensitivity troponin is also within normal limits. Unremarkable 3 day Holter. Echocardiogram with LVEF of 53%. Normal diastolic function. Mildly increased right ventricular size but otherwise unremarkable. He is wearing [address] head without any acute findings. Overall, possible vasovagal episode. Less likely arrhythmogenic. No specific cardiac management for now. Once the above monitor is completed, we can review. Otherwise, mainly reassurance. Coding Level of Care Code Est Pt Level 3 (90527) Diagnoses Syncope R55
== END 2023-03-19 15:44 | disposition home or self-care (01) ==
PROVIDERS: PCP Internal Medicine; Visit Provider Internal Medicine
DX: R55 Syncope and collapse (principal)
CPT/HCPCS: 99213

== ENCOUNTER → 2023-03-19 14:52 | Outpatient (BNVA) | payer OTHER, SELFPAY | PROVIDERS: PCP Internal Medicine; Visit Provider Internal Medicine | DX: R55 Syncope and collapse (principal) | CPT/HCPCS: 99212 ==

== ENCOUNTER 2023-04-08 10:38 | Outpatient (AMB) | payer OTHER, SELFPAY ==
--- NOTE | 2023-04-08 10:46 | MHC.OFFVIS ---
Intake Vital Signs 04/08/23 10:49 Height 5 ft 8 in Weight 171 lb BMI 26.0 Pulse 66 Pulse Source Pulse Oximeter Pulse Oximetry (%) 99 Oxygen Delivery Method Room Air Intake Visit Reasons: 3M F/U Convulsions-Confirmed Intake Note: Patient presents for 3 month convulsions. I'm here for results. Allergies No Known Allergies Allergy (Verified 04/08/23 10:48) Medication List - Last Reconciled 04/08/23 by FLORINDA Love bisacodyl (Dulcolax (bisacodyl)) 20 mg (4 x 5 mg) PO ONCE 1 day Brace,wrist (Wrist Brace - one) As directed lidocaine 4% (Aspercreme (lidocaine)) 1 patch topical DAILY PRN loratadine (Allergy Relief (loratadine)) 10 mg PO DAILY PRN 90 days meloxicam 15 mg PO DAILY 30 days omeprazole 20 mg PO DAILY polyethylene glycol 3350 (Miralax) 238 grams PO ONCE sertraline 25 mg PO DAILY sildenafil 50 mg PO DAILY PRN 30 days HPI HPI Comments History of Present Illness Details 62-yr-old male presents for f/u visit for f/u of 1 episode of syncope. Pt denies any significant interval medical changes. He has not had any new episodes of syncope, near-syncope. His baseline EEG was normal. Has not had brain MRI yet. Head CT was normal. He has had cardiology consult- so far EKG, 3 day holter- unremarkable. Echocardiogram with LVEF of 53%, normal diastolic function, mildly increased right ventricular size but otherwise unremarkable.. He is currently wearing a 30 days holter monitor. 12/24/22: Initial HPI: Pt reports on 12/17/22 he had his 1st ever convulsive episode. He states he was feeling well, he had eaten an egg and cheese sandwich around 1:30pm, after which he was sitting down when he started to feel external spinning f/b generalized sweating and felt hot. At this point he asked his CAPACITY MANAGEMENT SPECIALIST, to check his BP and blood sugar- she told him it was normal. At that point he felt like he would vomit. He started to vomit and then he had LOC, eyes rolling back and shaking x's a few seconds. There was no tongue biting or urinary incontinence. His CAPACITY MANAGEMENT SPECIALIST had called 911, pt was able to walk (walked down from the 4th floor w/o difficulty) when the adjunct faculty for medical terminology arrived. He denies postictal confusion, but did feel a bit tired. ON LICENSE OF [facility] Medical History Seizure Syncope Screening for prostate cancer Screening for hyperlipidemia Screening for colon cancer Screening for diabetes mellitus Anxiety Depression Colon cancer Surgical History History of colonoscopy Family History Mother Hypertension Diabetes Father No problems noted. Other Substance use disorder Social History Housing: Apartment Alcohol intake: never Patient Tobacco Use Status: Current everyday Tobacco user Tobacco use type: Cigarette Cigarette Packs Per Day: 1 Cigarettes Per Day: 20 e-Cigarette/Vaping Use: Never Used Second Hand Smoke Exposure: No service: No Current occupational status: unemployed and disabled Current occupation: Right Handed Cognitive needs: No Hearing needs: No Vision needs: Yes (glasses) Review of Systems Const All systems reviewed & are unremarkable except as noted in HPI and below Physical Exam Vital Signs: Last Vital Signs Pulse 66 04/08/23 10:49 Pulse Ox 99 04/08/23 10:49 Oxygen Delivery Method Room Air 04/08/23 10:49 BMI result Body Mass Index 26.0 Const General: cooperative and no acute distress Orientation/consciousness: patient oriented x3 HEENT Head: Yes normocephalic Resp Effort & Inspection: normal respiratory effort and able to speak in complete sentences Neuro General: patient oriented x3, gait normal and CN's II-XI intact bilaterally Cognition (Neuro): normal cognition Motor exam (neuro): 5/5 motor strength present throughout Psych Appearance: grossly normal Mental Status: mental status grossly normal Speech and movement: Normal speech and movement present Affect: normal affect Attitude: cooperative Thought process: Normal thought process present Assessment & Plan Assessment & Plan (1) Syncope: Code(s): R55 - Syncope and collapse Plan Convulsive episode was a/w GI upset, vomiting, eye rolling, some tonic-clonic shaking which may be epileptic, however episode was transient and pt had no significant post-ictal confusion which raises suspicion for syncope/vasovagal syncope. Baseline EEG- normal. Pt advised to undergo 48 hr ambulatory EEG to assess for epileptic activity. Will f/u on order for brain MRI w/wo to assess for central infectious, inflammatory, vascular etiologies of new onset convulsive episode. F/u w/ cardiology as scheduled. Pt advised to NOT drive or engage in high risk activities until etiology of convulsive episode is determined. Pt to notify us if he has any additional s/s. F/u after review of above and in 3-4 months or sooner prn. Orders: Orders EEG ambulatory Today R55 - Syncope and collapse Coding Level of Care Code Est Pt Level 4 (48041) Diagnoses Syncope R55
[2023-04-08 10:49] VITALS: PULSE 66; O2SAT 99; BMI 26.0
== END 2023-04-08 11:17 | disposition home or self-care (01) ==
PROVIDERS: PCP Internal Medicine; Visit Provider Nurse Practitioner Family
DX: R55 Syncope and collapse (principal)
CPT/HCPCS: 99214

== ENCOUNTER → 2023-04-08 10:38 | Outpatient (BNVA) | payer OTHER, SELFPAY | PROVIDERS: PCP Internal Medicine; Visit Provider Nurse Practitioner Family | DX: R55 Syncope and collapse (principal) | CPT/HCPCS: 99212 ==

== ENCOUNTER 2023-04-14 13:12 | Outpatient (AMB) | payer OTHER, SELFPAY ==
--- NOTE | 2023-04-14 13:17 | MHC.PC.OV ---
Vital Signs 04/14/23 13:18 Height 5 ft 8 in Weight 169 lb BMI 25.7 BP 110/72 Blood Pressure Location Lt brachial Position Sitting Intake Visit Reasons: annual exam Intake Note: Patient here for a physical exam Learning And Development Specialist Required: No Accompanied by: Self / Same As Patient Allergies No Known Allergies Allergy (Verified 04/14/23 13:41) Medication List - Last Reconciled 04/14/23 by Natacha Hurtado MD bisacodyl (Dulcolax (bisacodyl)) 20 mg (4 x 5 mg) PO ONCE 1 day Brace,wrist (Wrist Brace - one) As directed clonazepam 1 mg PO BEDTIME PRN lidocaine 4% (Aspercreme (lidocaine)) 1 patch topical DAILY PRN loratadine (Allergy Relief (loratadine)) 10 mg PO DAILY PRN 90 days meloxicam 15 mg PO DAILY 30 days omeprazole 20 mg PO DAILY polyethylene glycol 3350 (Miralax) 238 grams PO ONCE sertraline 25 mg PO DAILY sildenafil 50 mg PO DAILY PRN 30 days trazodone 100 mg PO BEDTIME Tobacco use date assessed: 04/14/23 Dental Screening Dental Screen Date: 04/14/23 Did you have a dental visit in the last 12 months?: No Did you have a dental problem in the last 6 months where you did not have access to dental care?: No Was dental information given to patient?: Patient has dentist HPI HPI Comments History of Present Illness Details This is a 62-year-old male with mild major depression that comes for his physical exam. Depression stable with sertraline and he is follow by counseling and psychiatry. Last colonoscopy was 2015 showing tubular adenoma and next colonoscopy scheduled for July 2023. No chest pain or shortness of breath. Was advised to quit smoking. [facility] Medical History Seizure Syncope Screening for prostate cancer Screening for hyperlipidemia Screening for colon cancer Screening for diabetes mellitus Anxiety Depression Colon cancer Surgical History History of colonoscopy Family History Mother Hypertension Diabetes Father No problems noted. Other Substance use disorder Social History Housing: Apartment Alcohol intake: never Patient Tobacco Use Status: Current everyday Tobacco user Tobacco use type: Cigarette Cigarette Packs Per Day: 2 e-Cigarette/Vaping Use: Never Used Second Hand Smoke Exposure: No service: No Current occupational status: unemployed and disabled Current occupation: Right Handed Cognitive needs: No Hearing needs: No Vision needs: Yes (glasses) Questionnaire PHQ-9 Over the last 2 weeks, how often have you been bothered by any of the following problems? 1. Little interest or pleasure in doing things: not at all 2. Feeling down, depressed, or hopeless: not at all 3. Trouble falling or staying asleep, or sleeping too much: several days 4. Feeling tired or having little energy: not at all 5. Poor appetite or overeating: several days 6. Feeling bad about yourself - or that you are a failure or have let yourself or your family down: not at all 7. Trouble concentrating on things, such as reading the newspaper or watching television: not at all 8. Moving or speaking so slowly that other people could have noticed. Or the opposite - being so fidgety or restless that you have been moving around a lot more than usual: several days 9. Thoughts that you would be better off or of hurting yourself in some way: not at all Total score: 3 Depression Screening Interpretation: Positive Depression Screening Follow-up: Existing condition and In treatment Depression Screening Done: Yes 00580 - PHQ-9 Billing: Yes Source: Developed by Drs. Wilfredo Figueroa, Tanja Garcia, Reilly Garcia and colleagues, with an educational mary from [employer]. Thrive Questionnaire Date Thrive assessed: 04/14/23 I am a: Patient What is your living situation today?: I have a steady place to live Within the past 12 months, did the food you bought not last and you didn't have the money to get more?: Never true Within the past 12 months, did you worry whether your food would run out before you got money to buy more?: Never true Do you have trouble paying for medicines?: No Do you have trouble getting transportation to medical appointments?: No Do you have trouble paying your heating and electricity bill?: No Do you have trouble taking care of your child, family member or friend?: No Do you have trouble with day-to-day activities such as bathing, preparing meals, shopping, managing finances, etc.?: No Are you currently unemployed and looking for a job?: No Are you interested in more education?: No Please select the resources that you would like help with: None Currently or been in a relationship where the following occur: no concerns reported AUDIT C Alcohol Use Questionnaire (AUDIT-C) 1. How often do you have a drink containing alcohol?: Never Total Score: 0 HEIDI-7 AMB Questionnaire HEIDI-7 Date HEIDI - 7 assessed: 04/14/23 Feeling nervous, anxious, or on edge: 1 = Several days Not being able to stop or control worryin = Not at all Worrying too much about different things: 1 = Several days Trouble relaxin = Several days Being so restless that it is hard to sit still: 0 = Not at all Becoming easily annoyed or irritable: 1 = Several days Feeling afraid as if something awful might happen: 0 = Not at all Total HEIDI-7 score (0-4 normal; 5-9 mild; 10-14 moderate; 15-21 severe): 4 Source: Developed by Drs. Wilfredo Figueroa, Tanja Garcia, Reilly Garcia and colleagues, with an educational mary from [employer]. HEIDI-7 Assessment Billing HEIDI-7 Assessment Tool: HEIDI-7 Assessment 32654 Review of Systems Const All systems reviewed & are unremarkable except as noted in HPI and below Eyes Reports no additional complaints, Denies change in vision and Denies other visual disturbances Card Denies chest pain at rest, Denies chest pain with activity, Denies edema, Denies irregular heart rhythm, Denies claudication, Denies dyspnea, Denies dyspnea on exertion, Denies orthopnea, Denies paroxysmal nocturnal dyspnea and Denies slow heart rate Resp Denies cough, Denies dyspnea and Denies dyspnea on exertion GI Denies abdominal pain, Denies change in bowel habits, Denies excessive flatus, Denies nausea and Denies vomiting Denies urinary hesitancy, Denies urinary incontinence and Denies urinary urgency Musc Denies abnormal gait, Denies atrophy, Denies deformity and Denies limited range of motion Skin/Breast Denies bleeding lesions, Denies changing lesions and Denies rash Neuro Denies abnormal gait, Denies behavioral changes, Denies confusion and Denies lack of coordination Psych Denies behavioral changes and Denies confusion Physical exam (Primary Care) Vital Signs: Last Vital Signs BP 110/72 04/14/23 13:18 BMI result Body Mass Index 25.7 Tobacco/Smoking Status: Tobacco use Status Tobacco use date assessed 04/14/23 04/14/23 13:27 Patient Tobacco Use Status Current everyday Tobacco 04/14/23 13:27 Tobacco use type Cigarette 04/14/23 13:27 e-Cigarette/Vaping Use Never Used 04/14/23 13:27 PHQ-9: PHQ-9 Score PHQ-9: Total score 3 04/14/23 13:46 Depression Screening Interpretation: Positive Depression Screening Follow-up: Existing condition and In treatment Thrive Assessment: Date of Thrive Assessment Date Thrive assessed 04/14/23 04/14/23 13:33 Currently or been in a relationship where the following occur: no concerns reported Const General: No confusion Orientation/consciousness: patient oriented x3 and No confusion HENMT Head: Yes normal to inspection, Yes normocephalic and Yes atraumatic Ears: external ears normal Eyes General: appearance normal, both eyes and all related structures Eyelids: Yes eyelids normal Conjunctivae: conjunctivae normal Neck Neck: Yes normal visual inspection and Yes supple Resp Effort & Inspection: normal respiratory effort Auscultation: clear to auscultation bilaterally Cardio Jugular venous distension: no JVD Rate: regular rate Rhythm: regular rhythm Heart sounds: S1 normal heart sound present and S2 normal heart sound present GI Inspection: Yes normal to inspection Palpation (GI): Soft to palpation and nontender Auscultation: normal bowel sounds Skin General skin exam: no rashes or lesions noted Neuro General: patient oriented x3, no focal motor deficits and No confusion Extrem General: Yes full ROM Psych Appearance: grossly normal Office Procedures Flu Questionnaire Does the patient have a severe egg allergy?: No Immunizations flu vacc [id number] 6mos up(PF) 60 mcg(15 mcgx4)/0.5 mL IM syringe Performing Provider: Natacha Hurtado MD Performing Location: [facility] Documented (not given) by: JASE Hirsch on 04/14/23 13:52 Reason Not Given: Not Given Assessment and Plan Assessment & Plan (1) Adult general medical exam: Code(s): Z00.00 - Encounter for general adult medical examination without abnormal findings Plan: Repeat in a year. (2) Mild major depression: Code(s): F32.0 - Major depressive disorder, single episode, mild Plan: Continue SSRIs Orders: Orders Influenza [id number] Immunization Today Z23 - Encounter for immunization Lipid Panel Today E78.5 - Hyperlipidemia, unspecified, Z00.00 - Encounter for general adult medical examination without abnormal findings Comprehensive [place]. Panel Fast Today Z00.00 - Encounter for general adult medical examination without abnormal findings Medications: Refilled lidocaine 4% (Aspercreme (lidocaine)) 1 patch topical DAILY PRN 30 ea 0RF pain M54.5 - Low back pain Coding Level of Care Code Est Pt Prev Care 40-64y(31137) Diagnoses Adult general medical exam Z00.00 Mild major depression F32.0 Additional Codes HEIDI-7 Assessment Billing - HEIDI-7 Assessment Tool: HEIDI-7 Assessment 11928 ([id number]) Time Spent (min) 32
[2023-04-14 13:18] VITALS: BP 110/72; BMI 25.7
== END 2023-04-14 13:51 | disposition home or self-care (01) ==
PROVIDERS: PCP Internal Medicine; Visit Provider Internal Medicine
DX: Z00.00 Encounter for general adult medical examination without abnormal findings (principal); F32.0 Major depressive disorder, single episode, mild
CPT/HCPCS: 99396

== ENCOUNTER 2023-04-17 15:50 | Outpatient (REF) | payer OTHER, SELFPAY ==
--- NOTE | ~2023-04-17 | MR_ITS ---
MR BRAIN WITHOUT AND WITH CONTRAST CLINICAL INFORMATION: Seizure protocol. First ever seizure like episode. COMPARISON: Head CT 12/17/2022. TECHNIQUE: Multiplanar, multisequence MRI of the brain was obtained before and after the intravenous administration of 8 mL Gadavist. FINDINGS: There is no pathologic intracranial enhancement. There is no mesial temporal sclerosis. No space-occupying lesions and no malformations of cortical development. There is mild chronic microangiopathy. There is no hydrocephalus, extra-axial surface collection, or herniation. The major flow voids at the skull base are preserved. There is no acute infarct on diffusion-weighted imaging. There is no intracranial hemorrhage on the gradient recalled echo acquisition. The midline structures are normal. The cerebellar tonsils are normally positioned. The cerebellum and brainstem are normal. The craniocervical junction is normal. Osseous marrow signal intensity is homogenous. The visualized soft tissues are unremarkable. Advanced left-sided facet arthropathy at C3-C4. There is moderate mucosal thickening throughout the ethmoid air cells bilaterally and within the right sphenoid sinus. Mild mucosal thickening within the maxillary sinuses bilaterally. MR/MR head/brain wo/w con IMPRESSION: Mild chronic microangiopathy. No pathologic enhancement intracranially, no malformations of cortical development, and no mesial temporal sclerosis.
== END 2023-04-17 15:51 | disposition home or self-care (01) ==
LOC: HO.MRI 15:50
PROVIDERS: PCP Internal Medicine; Visit Provider Nurse Practitioner Family
DX: R56.9 Unspecified convulsions (principal); R55 Syncope and collapse
CPT/HCPCS: 70553

== ENCOUNTER 2023-04-22 11:40 | Outpatient (AMB) | payer OTHER, SELFPAY ==
[2023-04-22 11:42] VITALS: BP 116/70; PULSE 74; TEMP 36.5; O2SAT 97; BMI 26.9
--- NOTE | 2023-04-22 11:42 | AM.OFFWIN_ITS ---
Intake Vital Signs 04/22/23 11:42 Height 5 ft 8 in Weight 177 lb BMI 26.9 BP 116/70 Blood Pressure Location Lt brachial Position Sitting Pulse 74 Pulse Source Pulse Oximeter Temp 97.7 F Temp Source Temporal Artery Scan Pulse Oximetry (%) 97 Oxygen Delivery Method Room Air Intake Visit Reasons: EP, sore throat, cough ([phone]) Intake Note: pt is here today for sore throat and cough started Patient Tobacco Use Status: Current everyday Tobacco user Allergies No Known Allergies Allergy (Verified 04/22/23 11:45) Do you need a note to return to daycare/school/sports/work: No HPI HPI Comments History of Present Illness Details Patient is a 62-year-old male in today for a sick visit. He states that early this morning he developed symptoms of headache, sore throat, dry cough. Denies anyone at home being sick. Tried [id number] Tylenol with some relief. Denies nausea, vomiting, chest pain, shortness a breath, dizziness. Denies recent travel. [facility]LY [facility] Medical History Seizure Syncope Screening for prostate cancer Screening for hyperlipidemia Screening for colon cancer Screening for diabetes mellitus Anxiety Depression Colon cancer Surgical History History of colonoscopy Family History Mother Hypertension Diabetes Father No problems noted. Other Substance use disorder Social History Housing: Apartment Alcohol intake: never Patient Tobacco Use Status: Current everyday Tobacco user Tobacco use type: Cigarette Cigarette Packs Per Day: 2 e-Cigarette/Vaping Use: Never Used Second Hand Smoke Exposure: No service: No Current occupational status: unemployed and disabled Current occupation: Right Handed Cognitive needs: No Hearing needs: No Vision needs: Yes (glasses) Review of Systems Const Details: Constitutional : No Weight loss, No Fever, Admits Chills, No Fatigue, No Malaise ENT/Mouth : Admits sore throat, No Rhinorrhea Eyes: No Eye Pain, No Swelling, No Redness Cardiovascular : No Chest Pain, No SOB, No Dyspnea on Exertion, No Orthopnea, No Edema, No Palpitations Respiratory : Admits Cough, No Sputum, No Wheezing Gastrointestinal : No Nausea, No Vomiting, No Diarrhea, No Constipation, No abdominal Pain, No Hematochezia, No Melena Genitourinary : No Dysuria, No Urinary Frequency, No Hematuria, Musculoskeletal : No joint pain, No Myalgias, No Joint Swelling Skin : No Skin Lesions, No rash Neuro : No Weakness, No Numbness, No Dizziness, No Headache Psych : No Anxiety/Panic, No Depression Heme/Lymph: No Bruising, No Bleeding,No Lymphadenopathy Endocrine : No Polyuria, No Polydipsia All other systems reviewed and are negative Physical Exam Vital Signs: Last Vital Signs Temp 97.7 F 04/22/23 11:42 Pulse 74 04/22/23 11:42 BP 116/70 04/22/23 11:42 Pulse Ox 97 04/22/23 11:42 Oxygen Delivery Method Room Air 04/22/23 11:42 BMI result Body Mass Index 26.9 Vital signs reviewed stable Const Other: Appearance: Alert.? Oriented X3.? No acute distress.? Head: Normocephalic, atraumatic, no step-offs or deformities Eyes: Pupils equal, round and reactive to light.? ENT: Pharynx erythema. Septum midline. TM intact and pearly carpio. Neck: Normal inspection.? Neck supple.?Full ROM. CVS: Normal heart rate and rhythm.? Pulses normal.? Respiratory: No respiratory distress.? Breath sounds normal.? Abdomen: Soft and nontender.? Neuro: Oriented X 3.? No motor deficit.? No sensory deficit. CN 2-12 intact Results AMB Rapid Strep AMB Rapid Strep Negative Last Edit by Stuart Odell CMA on 04/22/23 13 :15 Results Reviewed Results Reviewed: Laboratory Last Values Strep Scn [facility] Negative 04/22/23 13:15 Assessment & Plan Assessment & Plan (1) Upper respiratory infection: Comment: Will give patient benzonatate and phenol throat spray for symptom relief. Patient has been educated on how to take the medication properly in common side effects. Patient has been educated on signs of worsening symptoms and when to report to the walk-in or when to present to the ED. Patient states he understands. Code(s): J06.9 - Acute upper respiratory infection, unspecified Qualifiers: URI type: unspecified URI Qualified Code(s): J06.9 - Acute upper respiratory infection, unspecified Plan: Take your medications as prescribed. If you were prescribed antibiotics today, it is important that you take your medication to their entirety, do not skip any doses, do not finish them early. Follow-up with your primary care provider this week. Return to the emergency department with new or worsening symptoms. Such as fevers, chills, chest pain, shortness of breath, nausea, vomiting, dizziness, headache, vision changes, lethargy In case of emergency call 911 Plan Follow-up with PCP Orders: Orders SARS-CoV2/FLU/RSV Today J06.9 - Acute upper respiratory infection, unspecified AMB Rapid Strep Screen Today Z13.9 - Encounter for screening, unspecified Medications: New benzonatate 100 mg PO BID PRN 30 caps 0RF cough phenol 1.4% (Chloraseptic Throat [place]) 4 sprays mucous membrane Q4H PRN 20 mL 0RF sore throat Coding Level of Care Code Est Pt Level 3 (54610) Diagnoses Upper respiratory tract infection, unspecified type J06.9 URI type: unspecified URI Time Spent (min) 20
== END 2023-04-22 13:10 | disposition home or self-care (01) ==
PROVIDERS: PCP Internal Medicine; Visit Provider Nurse Practitioner Primary Care
DX: J06.9 Acute upper respiratory infection, unspecified (principal); J02.9 Acute pharyngitis, unspecified
CPT/HCPCS: 87880; 99213

== ENCOUNTER 2023-04-22 13:50 | Outpatient (REF) | payer OTHER, SELFPAY ==
[2023-04-22 14:37] LABS: Influenza A PCR NEGATIVE (Negative); Influenza B PCR NEGATIVE (Negative); Resp Syncy Virus RNA Qual PCR NEGATIVE (Negative); SARS COV2 PCR INHOUSE NEGATIVE (Negative)
== END 2023-04-22 13:51 | disposition home or self-care (01) ==
LOC: HO.HMGCLNP 13:50
PROVIDERS: Visit Provider Nurse Practitioner Primary Care
DX: J06.9 Acute upper respiratory infection, unspecified (principal); Z11.52 Encounter for screening for COVID-19
CPT/HCPCS: 0241U

== ENCOUNTER 2023-07-07 09:14 | Outpatient (AMB) | payer OTHER, SELFPAY ==
--- NOTE | 2023-07-07 09:28 | A.OFFVIS_ITS ---
Intake Vital Signs 07/07/23 09:29 Height 5 ft 8 in Weight 177 lb BMI 26.9 BP 124/74 Blood Pressure Location Rt brachial Position Sitting Pulse 71 Pulse Source Pulse Oximeter Pulse Oximetry (%) 98 Oxygen Delivery Method Room Air Intake Visit Reasons: 3 mo f/u Convulsion-CONF Intake Note: Patient presents for 3 month follow up convulsion. Patient has not gotten a seizure. Allergies No Known Allergies Allergy (Verified 07/07/23 09:31) Medication List - Last Reconciled 07/07/23 by FLORINDA Love benzonatate 100 mg PO BID PRN bisacodyl (Dulcolax (bisacodyl)) 20 mg (4 x 5 mg) PO ONCE 1 day Brace,wrist (Wrist Brace - one) As directed clonazepam 1 mg PO BEDTIME PRN lidocaine 4% (Aspercreme (lidocaine)) 1 patch topical DAILY PRN loratadine (Allergy Relief (loratadine)) 10 mg PO DAILY PRN 90 days meloxicam 15 mg PO DAILY 30 days omeprazole 20 mg PO DAILY phenol 1.4% (Chloraseptic Throat [place]) 4 sprays mucous membrane Q4H PRN polyethylene glycol 3350 (Miralax) 238 grams PO ONCE sertraline 25 mg PO DAILY sildenafil 50 mg PO DAILY PRN 30 days trazodone 100 mg PO BEDTIME HPI HPI Comments History of Present Illness Details 62-yr-old male presents for f/u visit. Pt denies any significant interval medical changes. Pt denies any interval syncope or seizure like episodes. No recent vomitting. Scheudled for upcoming routine colonoscopy per pt. 48hr EEG was normal Holter monitor: * Procedure time 30 days. Wear time 23 days. * Underlying rhythm is sinus with an average rate of 72/Min. * Occasional supraventricular ectopy. * Occasional ventricular ectopy. One strip with couplets and other with triplets. No significant runs. * No significant pauses or heart block. * No symptoms in diary. MR/MR head/brain wo/w con IMPRESSION: Mild chronic microangiopathy. No pathologic enhancement intracranially, no malformations of cortical development, and no mesial temporal sclerosis. [facility] Medical History (Updated 07/07/23 @ 17:22 by FLORINDA Love) Syncope Screening for prostate cancer Screening for hyperlipidemia Screening for colon cancer Screening for diabetes mellitus Anxiety Depression Colon cancer Surgical History History of colonoscopy Family History Mother Hypertension Diabetes Father No problems noted. Other Substance use disorder Social History Housing: Apartment Alcohol intake: never Patient Tobacco Use Status: Current everyday Tobacco user Tobacco use type: Cigarette Cigarette Packs Per Day: 2 e-Cigarette/Vaping Use: Never Used Second Hand Smoke Exposure: No service: No Current occupational status: unemployed and disabled Current occupation: Right Handed Cognitive needs: No Hearing needs: No Vision needs: Yes (glasses) Review of Systems Const All systems reviewed & are unremarkable except as noted in HPI and below Physical Exam Vital Signs: Last Vital Signs Pulse 71 07/07/23 09:29 BP 124/74 07/07/23 09:29 Pulse Ox 98 07/07/23 09:29 Oxygen Delivery Method Room Air 07/07/23 09:29 BMI result Body Mass Index 26.9 Const General: cooperative and no acute distress Orientation/consciousness: patient oriented x3 HEENT Head: Yes normocephalic Resp Effort & Inspection: normal respiratory effort and able to speak in complete sentences Neuro General: patient oriented x3, gait normal and CN's II-XI intact bilaterally Cognition (Neuro): normal cognition Motor exam (neuro): 5/5 motor strength present throughout Psych Appearance: grossly normal Mental Status: mental status grossly normal Speech and movement: Normal speech and movement present Affect: normal affect Attitude: cooperative Thought process: Normal thought process present Thought content: Normal thought content present Insight: Good insight present (Psych) Judgement: Good judgement present (Psych) Assessment & Plan Assessment & Plan (1) Convulsive syncope: Code(s): R55 - Syncope and collapse Plan Convulsive episode was a/w GI upset, vomiting, eye rolling, some tonic-clonic shaking which may be epileptic, however episode was transient and pt had no significant post-ictal confusion. Work-up has not revealed a cardiogenic or epileptic which increases likelihood that pt's previous convulsive syncopal event was a vasovagal. Pt notes he no longer eats the sandwich that preceded the vomiting/syncopal attack. Today he notes that the fara wil[place] he bought might have old meat in it, and thus now only eats sandwiches made at home. Baseline EEG- normal. 48hr EEG was normal Holter monitor: Underlying rhythm is sinus with an average rate of 72/Min. Occasional supraventricular ectopy. Occasional ventricular ectopy. One strip with couplets and other with triplets. No significant runs. MR/MR head/brain wo/w con: Mild chronic microangiopathy. No findings to suggest a seizure etiology. Pt to notify us if he has any additional s/s. F/u after review of above and in 6 months or sooner prn. Coding Level of Care Code Est Pt Level 4 (64860) Diagnoses Convulsive syncope R55
[2023-07-07 09:29] VITALS: BP 124/74; PULSE 71; O2SAT 98; BMI 26.9
== END 2023-07-07 10:24 | disposition home or self-care (01) ==
PROVIDERS: PCP Internal Medicine; Visit Provider Nurse Practitioner Family
DX: R55 Syncope and collapse (principal)
CPT/HCPCS: 99214

== ENCOUNTER → 2023-07-07 09:14 | Outpatient (BNVA) | payer OTHER, SELFPAY | PROVIDERS: PCP Internal Medicine; Visit Provider Nurse Practitioner Family | DX: R55 Syncope and collapse (principal) | CPT/HCPCS: 99212 ==

== ENCOUNTER 2023-10-13 07:24 | Outpatient (REF) | payer OTHER, SELFPAY ==
[2023-10-13 09:19] LABS: Alanine Aminotransferase 10 U/L (0-40); Albumin Level 4.2 g/dL (3.5-5.0); Alkaline Phosphatase 75 U/L (39-117); Anion Gap 10 (12-20); Aspartate Amino Transferase 18 U/L (5-37); Bilirubin Total 0.4 mg/dL (0.0-1.0); Blood Urea Nitrogen 20 mg/dL (9-16); Calcium 9.2 mg/dL (8.4-10.2); Carbon Dioxide 28 mmol/L (22-29); Chloride 107 mmol/L (96-108); Cholesterol 185 mg/dL (<200); Estimated Glomerular Filt Rate > 60; Glucose Fasting 87 mg/dL (60-99); HDL Cholesterol 47 mg/dL (>40); LDL Cholesterol Calculated 119 mg/dL (<100); Sodium 141 mmol/L (135-145); Total Protein 7.5 g/dL (6.5-8.0); Triglycerides 98 mg/dL (<150)
== END 2023-10-13 07:25 | disposition home or self-care (01) ==
LOC: HO.LAB 07:24
PROVIDERS: PCP Internal Medicine; Visit Provider Internal Medicine
DX: Z00.00 Encounter for general adult medical examination without abnormal findings (principal); E78.5 Hyperlipidemia, unspecified
CPT/HCPCS: 36415; 80053; 80061

== ENCOUNTER 2023-10-14 13:16 | Outpatient (AMB) | payer OTHER, SELFPAY ==
[2023-10-14 13:20] VITALS: BP 124/60; PULSE 70; O2SAT 97; BMI 25.7
--- NOTE | 2023-10-14 13:20 | A.OFFPC_ITS ---
Vital Signs 10/14/23 13:20 Height 5 ft 8 in Weight 169 lb BMI 25.7 BP 124/60 Blood Pressure Location Lt brachial Position Sitting Pulse 70 Pulse Source Pulse Oximeter Pulse Oximetry (%) 97 Oxygen Delivery Method Room Air Intake Visit Reasons: gerd Divorce Lawyer Required: No Accompanied by: Self / Same As Patient Allergies No Known Allergies Allergy (Verified 10/14/23 13:32) Medication List - Last Reconciled 10/14/23 by Natacha Hurtado MD bisacodyl (Dulcolax (bisacodyl)) 20 mg (4 x 5 mg) PO ONCE 1 day Brace,wrist (Wrist Brace - one) As directed clonazepam 1 mg PO BEDTIME PRN lidocaine 4% (Aspercreme (lidocaine)) 1 patch topical DAILY PRN loratadine (Allergy Relief (loratadine)) 10 mg PO DAILY PRN 90 days meloxicam 15 mg PO DAILY 30 days omeprazole 20 mg PO DAILY phenol 1.4% (Chloraseptic Throat [place]) 4 sprays mucous membrane Q4H PRN polyethylene glycol 3350 (Miralax) 238 grams PO ONCE sertraline 25 mg PO DAILY sildenafil 50 mg PO DAILY PRN 30 days trazodone 100 mg PO BEDTIME Tobacco use date assessed: 04/14/23 Fall risk assessment: No Falls in past year Last assessed Fall Risk: 10/14/23 Dental Screening Dental Screen Date: 04/14/23 HPI HPI Comments History of Present Illness Details This is a 63-year-old male with mild major depression, anxiety, chronic GERD and lumbar spondylolisthesis that comes today for follow-up on his conditions. Depression and anxiety has been stable with medications and this is follow by Psychiatry. GERD still present with omeprazole and I will change it to pantoprazole. He does follows with Gastroenterology. Walks with a cane for gait stability due to chronic low back pain secondary to spondylolisthesis. Meloxicam mildly relieved the pain. No chest pain or shortness on breath. [facility] Medical History Syncope Screening for prostate cancer Screening for hyperlipidemia Screening for colon cancer Screening for diabetes mellitus Anxiety Depression Colon cancer Surgical History History of colonoscopy Family History Mother Hypertension Diabetes Father No problems noted. Other Substance use disorder Social History Housing: Apartment Alcohol intake: never Patient Tobacco Use Status: Current everyday Tobacco user Tobacco use type: Cigarette Cigarette Packs Per Day: 2 e-Cigarette/Vaping Use: Never Used Second Hand Smoke Exposure: No service: No Current occupational status: unemployed and disabled Current occupation: Right Handed Cognitive needs: No Hearing needs: No Vision needs: Yes (glasses) Questionnaire Thrive Questionnaire Date Thrive assessed: 04/14/23 HEIDI-7 AMB Questionnaire HEIDI-7 Date HEIDI - 7 assessed: 04/14/23 Source: Developed by Drs. Wilfredo Figueroa, Tanja Garcia, Reilly Garcia and colleagues, with an educational mary from [employer]. Review of Systems Const All systems reviewed & are unremarkable except as noted in HPI and below Card Denies chest pain at rest, Denies chest pain with activity, Denies edema, Denies irregular heart rhythm, Denies claudication, Denies dyspnea, Denies dyspnea on exertion, Denies orthopnea, Denies paroxysmal nocturnal dyspnea and Denies slow heart rate Resp Denies cough, Denies dyspnea and Denies dyspnea on exertion Musc Denies atrophy, Denies deformity and Denies limited range of motion Physical exam (Primary Care) Vital Signs: Last Vital Signs Pulse 70 10/14/23 13:20 BP 124/60 10/14/23 13:20 Pulse Ox 97 10/14/23 13:20 Oxygen Delivery Method Room Air 10/14/23 13:20 BMI result Body Mass Index 25.7 Tobacco/Smoking Status: Tobacco use Status Tobacco use date assessed 04/14/23 10/14/23 13:22 Patient Tobacco Use Status Current everyday Tobacco 10/14/23 13:22 Tobacco use type Cigarette 10/14/23 13:22 e-Cigarette/Vaping Use Never Used 10/14/23 13:22 Are you ready to quit: No Tobacco cessation counseling provided: Yes Items discussed: [employer]uit[employer] Relapse Prevention: discussed the importance of a supportive environment, discussed negative mood or depression after quitting and weight gain after smoking is common Number of minutes spent counselin CPT code: Less than 3 minutes Thrive Assessment: Date of Thrive Assessment Date Thrive assessed 04/14/23 10/14/23 13:22 Const General: cooperative Limitations: ambulation with cane Resp Effort & Inspection: normal respiratory effort Auscultation: clear to auscultation bilaterally Cardio Jugular venous distension: no JVD Rate: regular rate Rhythm: regular rhythm Heart sounds: S1 normal heart sound present and S2 normal heart sound present Psych Appearance: grossly normal Assessment and Plan Assessment & Plan (1) Mild major depression: Code(s): F32.0 - Major depressive disorder, single episode, mild Plan: Continue SSRIs. Follow-up with psychiatry. (2) Chronic GERD: Code(s): K21.9 - Gastro-esophageal reflux disease without esophagitis Plan: Discontinue omeprazole. Start pantoprazole. Follow-up with Gastroenterology. (3) Degenerative spondylolisthesis: Comment: L3-L4 Code(s): M43.10 - Spondylolisthesis, site unspecified Plan: Continue meloxicam as needed. Continue the use of a cane as needed. (4) Anxiety: Code(s): F41.9 - Anxiety disorder, unspecified Plan: Continue benzodiazepines as needed. Follow-up with psychiatry. Medications: New pantoprazole 40 mg PO DAILY 90 tabs 1RF 90 days Refilled sildenafil administer 30 minutes to 4 hours before activity 50 mg PO DAILY PRN 5 tabs 2RF sexual activity 30 days Discontinued omeprazole Discontinued Reason: Patient Completed Course 20 mg PO DAILY 90 caps 1RF R10.13 - Epigastric pain Coding Level of Care Code Est Pt Level 4 (67390) Complex EM visit Add On G2211 Diagnoses Mild major depression F32.0 Chronic GERD K21.9 Degenerative spondylolisthesis M43.10 Anxiety F41.9 Time Spent (min) 23
== END 2023-10-14 13:42 | disposition home or self-care (01) ==
PROVIDERS: PCP Internal Medicine; Visit Provider Internal Medicine
DX: F32.0 Major depressive disorder, single episode, mild (principal); K21.9 Gastro-esophageal reflux disease without esophagitis; M43.10 Spondylolisthesis, site unspecified; F41.9 Anxiety disorder, unspecified
CPT/HCPCS: 99214; G2211

== ENCOUNTER 2023-11-19 11:35 | Outpatient (AMB) | payer OTHER, SELFPAY ==
--- NOTE | 2023-11-19 11:37 | MHC.OFFWIV ---
Intake Vital Signs 11/19/23 11:39 Height 5 ft 8 in Weight 163 lb BMI 24.8 BP 118/80 Blood Pressure Location Rt brachial Position Sitting Pulse 66 Pulse Source Pulse Oximeter Temp 98.2 F Temp Source Oral Pulse Oximetry (%) 98 Oxygen Delivery Method Room Air Intake Visit Reasons: EP- Rash on private part Intake Note: pt c/o rash on penis. Started last night Patient Tobacco Use Status: Current everyday Tobacco user Allergies No Known Allergies Allergy (Verified 11/19/23 11:37) Do you need a note to return to daycare/school/sports/work: No HPI HPI Comments History of Present Illness Details Patient is a 63-year-old male complaining of bout bumps on his penis for the last 2 days. He is here with his and they state they are in a monogamous relationship. She states they did have sexual intercourse 5 days ago and then 4 days ago she was diagnosed with a yeast infection and they are wondering if it could be a yeast infection. He has a picture he would like to show me, the picture shows his penis with pinpoint erythematous bumps on the tip. He denies any abnormal penile discharge, pain with urination, burning with urination or blood in his urine. He denies any fevers. He states he was working out in the yard on Friday and it was very hot but he states he does take a shower every day and he cleans his penis every time after they have sex as he is not circumcised. 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 [facility] Medical History Syncope Screening for prostate cancer Screening for hyperlipidemia Screening for colon cancer Screening for diabetes mellitus Anxiety Depression Colon cancer Surgical History History of colonoscopy Family History Mother Hypertension Diabetes Father No problems noted. Other Substance use disorder Social History Housing: Apartment Alcohol intake: never Patient Tobacco Use Status: Current everyday Tobacco user Tobacco use type: Cigarette Cigarette Packs Per Day: 2 e-Cigarette/Vaping Use: Never Used Second Hand Smoke Exposure: No service: No Current occupational status: unemployed and disabled Current occupation: Right Handed Cognitive needs: No Hearing needs: No Vision needs: Yes (glasses) Review of Systems Const All systems reviewed & are unremarkable except as noted in HPI and below Physical Exam Vital Signs: Last Vital Signs Temp 98.2 F 11/19/23 11:39 Pulse 66 11/19/23 11:39 BP 118/80 11/19/23 11:39 Pulse Ox 98 11/19/23 11:39 Oxygen Delivery Method Room Air 11/19/23 11:39 BMI result Body Mass Index 24.8 Const General: cooperative, healthy appearing, comfortable, no acute distress and well developed Orientation/consciousness: patient oriented x3 Limitations: no limitations HEENT Head: Yes normal to inspection Ears: hearing grossly normal bilaterally General nose exam: Normal external nose present Face and sinus: Yes normal facial exam Eyes General: appearance normal, both eyes and all related structures Neck Neck: Yes normal visual inspection and Yes full ROM Resp Effort & Inspection: normal respiratory effort and able to speak in complete sentences Male General Exam: No Genital lesions present Penis: normal penis, uncircumcised, no condylomata, no ecchymosis, not edematous, not erythematous, no nodules, no papules, no pustules, no vesicles, no swelling, no ulcerations and No Genital lesions present Skin General skin exam: no rashes or lesions noted Neuro General: patient oriented x3 Extrem General: Yes normal to inspection Assessment & Plan Assessment & Plan (1) Dermatitis: Code(s): L30.9 - Dermatitis, unspecified Plan: Comparing the picture from yesterday to the physical exam today, it appears he may have had a dermatitis yesterday that seems to be healing on its own. His physical exam was completely unremarkable. Gave red flag warning signs and when to follow up with their PCP Plan see above Coding Level of Care Code Est Pt Level 3 (31512) Diagnoses Dermatitis L30.9
[2023-11-19 11:39] VITALS: BP 118/80; PULSE 66; TEMP 36.8; O2SAT 98; BMI 24.8
== END 2023-11-19 11:51 | disposition home or self-care (01) ==
PROVIDERS: PCP Internal Medicine; Visit Provider Physician Assistant
DX: L30.9 Dermatitis, unspecified (principal)
CPT/HCPCS: 99213

== ENCOUNTER 2024-02-06 09:25 | Outpatient (AMB) | payer OTHER, SELFPAY ==
[2024-02-06 09:27] VITALS: BMI 24.8
--- NOTE | 2024-02-06 09:27 | A.OFFVIS_ITS ---
Vital Signs 02/06/24 09:27 Height 5 ft 8 in Weight 163 lb BMI 24.8 Intake Visit Reasons: Follow up Convulsion Intake Note: Patient presents for follow up convulsions. Allergies No Known Allergies Allergy (Verified 02/06/24 09:30) HPI Comments Details: 62-yr-old male presents for f/u visit for h/o isolated syncopal episode in Dec 2022. Pt denies any significant interval medical changes. Pt states he is still sure that his Dec 2022 syncopal event was triggered by eating a spoiled sandwich. He has not eaten that sandwich since. Pt denies any interval syncope or seizure like episodes. No recent vomiting. [facility] Medical History Syncope Screening for prostate cancer Screening for hyperlipidemia Screening for colon cancer Screening for diabetes mellitus Anxiety Depression Colon cancer Surgical History History of colonoscopy Family History Mother Hypertension Diabetes Father No problems noted. Other Substance use disorder Social History Housing: Apartment Alcohol intake: never Patient Tobacco Use Status: Current everyday Tobacco user Tobacco use type: Cigarette Cigarette Packs Per Day: 2 e-Cigarette/Vaping Use: Never Used Second Hand Smoke Exposure: No service: No Current occupational status: unemployed and disabled Current occupation: Right Handed Cognitive needs: No Hearing needs: No Vision needs: Yes (glasses) Physical Exam Vital Signs: BMI result Body Mass Index 24.8 Const General: cooperative and no acute distress Orientation/consciousness: patient oriented x3 HEENT Head: Yes normocephalic Resp Effort & Inspection: normal respiratory effort and able to speak in complete sentences Neuro General: patient oriented x3, gait normal and CN's II-XI intact bilaterally Cognition (Neuro): normal cognition Motor exam (neuro): 5/5 motor strength present throughout Psych Appearance: grossly normal Mental Status: mental status grossly normal Speech and movement: Normal speech and movement present Affect: normal affect Attitude: cooperative Thought process: Normal thought process present Thought content: Normal thought content present Insight: Good insight present (Psych) Judgement: Good judgement present (Psych) Assessment & Plan Assessment & Plan (1) Convulsive syncope: Code(s): R55 - Syncope and collapse Category: Medical Plan Convulsive episode in Dec 2022, was a/w GI upset, vomiting, eye rolling, some tonic-clonic shaking which may be epileptic, however episode was transient and pt had no significant post-ictal confusion. Work-up has not revealed a cardiogenic or epileptic which increases likelihood that pt's previous convulsive syncopal event was a vasovagal episode.Pt notes he no longer eats the sandwich that preceded the vomiting/syncopal attack. He notes that the deli sandwich he bought might have had old meat in it, and thus now only eats sandwic hes made at home. Pt has not had any similar episodes since. Baseline EEG- normal. 48hr EEG was normal Holter monitor: Underlying rhythm is sinus with an average rate of 72/Min. Occasional supraventricular ectopy. Occasional ventricular ectopy. One strip with couplets and other with triplets. No significant runs. MR/MR head/brain wo/w con: Mild chronic microangiopathy. No findings to suggest a seizure etiology. Pt to notify us if he has any additional s/s. Pt to follow-up in 9 months or sooner prn. Coding Level of Care Code Est Pt Level 3 (71981) Diagnoses Convulsive syncope R55
== END 2024-02-06 09:54 | disposition home or self-care (01) ==
LOC: HO.HSMS 09:26
PROVIDERS: PCP Internal Medicine; Visit Provider Nurse Practitioner Family
DX: R55 Syncope and collapse (principal)
CPT/HCPCS: 99213

== ENCOUNTER → 2024-02-06 09:25 | Outpatient (BNVA) | payer OTHER, SELFPAY | PROVIDERS: PCP Internal Medicine; Visit Provider Nurse Practitioner Family | DX: R55 Syncope and collapse (principal) | CPT/HCPCS: 99212 ==

== ENCOUNTER 2024-03-10 13:19 | Outpatient (AMB) | payer OTHER, SELFPAY ==
--- NOTE | 2024-03-10 14:58 | AM.OFFWIN_ITS ---
Intake Vital Signs 03/10/24 14:59 Height 5 ft 8 in Weight 163 lb BMI 24.8 BP 114/78 Blood Pressure Location Rt brachial Position Sitting Pulse 72 Pulse Source Pulse Oximeter Temp 98.5 F Temp Source Oral Pulse Oximetry (%) 98 Oxygen Delivery Method Room Air Intake Visit Reasons: EP Sore throat, cough, lt ear pain Intake Note: Patient here for cough, left ear pain, headaches which has been present for about 3 days. Patient Tobacco Use Status: Current everyday Tobacco user Allergies No Known Allergies Allergy (Verified 03/10/24 15:00) Do you need a note to return to daycare/school/sports/work: No HPI EP Sore throat, cough, lt ear pain HPI Details This note is constructed using voice recognition software. While every effort has been made to ensure accuracy, soaking pit operator errors may have been included. The patient is a 63 year old male who presents to the clinic today with left- sided ear pain, cough, dry throat, body aches, fatigue since yesterday. He denies fever, however was taking Tylenol last night and did have a large amount of sweating overnight. He denies shortness of breath. This morning he put peroxide in his ear to try to help alleviate the pain, and it did provide some relief. 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 [facility] Medical History Syncope Screening for prostate cancer Screening for hyperlipidemia Screening for colon cancer Screening for diabetes mellitus Anxiety Depression Colon cancer Surgical History History of colonoscopy Family History Mother Hypertension Diabetes Father No problems noted. Other Substance use disorder Social History Housing: Apartment Alcohol intake: never Patient Tobacco Use Status: Current everyday Tobacco user Tobacco use type: Cigarette Cigarette Packs Per Day: 2 e-Cigarette/Vaping Use: Never Used Second Hand Smoke Exposure: No service: No Current occupational status: unemployed and disabled Current occupation: Right Handed Cognitive needs: No Hearing needs: No Vision needs: Yes (glasses) Review of Systems Const All systems reviewed & are unremarkable except as noted in HPI and below Physical Exam Vital Signs: Last Vital Signs Temp 98.5 F 03/10/24 14:59 Pulse 72 03/10/24 14:59 BP 114/78 03/10/24 14:59 Pulse Ox 98 03/10/24 14:59 Oxygen Delivery Method Room Air 03/10/24 14:59 BMI result Body Mass Index 24.8 Const General: cooperative, healthy appearing, comfortable and no acute distress Orientation/consciousness: patient oriented x3 Limitations: no limitations HEENT Head: Yes normal to inspection Ears: hearing grossly normal bilaterally, external ears normal, TM normal on the right and TM abnormal (On the right) bulging and erythematous General nose exam: Normal external nose present, Normal nares present and No nasal discharge present Face and sinus: Yes normal facial exam and Yes sinuses nontender Mouth: Normal oral and palatal mucosa present and moist mucous membranes Throat: Yes tonsils normal, Yes uvula midline and Yes posterior oropharynx abnormal (Erythema) Eyes General: appearance normal, both eyes and all related structures Neck Neck: Yes normal visual inspection Resp Effort & Inspection: normal respiratory effort, able to speak in complete sentences, Actively coughing, no respiratory distress, not tachypneic, no tripod positioning and no use of accessory muscles Auscultation: clear to auscultation bilaterally Cardio Jugular venous distension: no JVD Rate: regular rate Rhythm: regular rhythm Heart sounds: S1 normal heart sound present, S2 normal heart sound present, no click, no gallops, no murmurs and no rubs Skin General skin exam: no rashes or lesions noted, elasticity normal and turgor normal Neuro General: patient oriented x3 Extrem General: Yes normal to inspection and Yes no clubbing, cyanosis or edema Assessment & Plan Assessment & Plan (1) Otitis media: Code(s): H66.90 - Otitis media, unspecified, unspecified ear Qualifiers: Chronicity: acute Laterality: left Otitis media type: suppurative Recurrence: non-recurrent Spontaneous tympanic membrane rupture: without spontaneous rupture Qualified Code(s): H66.002 - Acute suppurative otitis media without spontaneous rupture of ear drum, left ear Plan: Supportive measures encouraged and reviewed. Antibiotic sent to requested pharmacy, advised patient to take antibiotics until completed and not to stop if feeling better, unless the patient has side effects. Viral swab obtained to rule out Covid, Influenza, and RSV based on symptoms. Advised mask wearing while symptomatic and quarantine per current CDC guidelines. Reviewed at home support methods including hydration, humidification, vix vapor rub, sinus rinse, and otc treatment options. Advised follow up with worsening symptoms such as dyspnea at rest, which would require emergent evaluation. Advised patient to follow up with primary care provider with worsening or failure to resolve. Plan See above for full details and plan. Orders: Orders SARS-CoV2/FLU/RSV Today J06.9 - Acute upper respiratory infection, unspecified Medications: New amoxicillin-pot clavulanate 875-125 mg 1 tab PO BID 14 tabs 0RF 7 days Coding Level of Care Code Est Pt Level 3 (76374) Diagnoses Non-recurrent acute suppurative otitis media of left ear without spontaneous rupture of tympanic membrane H66.002 Chronicity: acute Laterality: left Otitis media type: suppurative Recurrence: non-recurrent Spontaneous tympanic membrane rupture: without spontaneous rupture
[2024-03-10 14:59] VITALS: BP 114/78; PULSE 72; TEMP 36.9; O2SAT 98; BMI 24.8
== END 2024-03-10 16:04 | disposition home or self-care (01) ==
PROVIDERS: PCP Internal Medicine; Visit Provider Registered Nurse
DX: H66.002 Acute suppurative otitis media without spontaneous rupture of ear drum, left ear (principal)

== ENCOUNTER 2024-03-10 13:19 | Outpatient (REF) | payer OTHER, SELFPAY ==
[2024-03-10 17:16] LABS: Influenza A PCR NEGATIVE (Negative); Influenza B PCR NEGATIVE (Negative); Resp Syncy Virus RNA Qual PCR NEGATIVE (Negative); SARS COV2 PCR INHOUSE POSITIVE (Negative)
== END 2024-03-10 13:20 | disposition home or self-care (01) ==
LOC: HO.LAB 13:19
PROVIDERS: Registered Nurse; PCP Internal Medicine
DX: H66.002 Acute suppurative otitis media without spontaneous rupture of ear drum, left ear (principal); J06.9 Acute upper respiratory infection, unspecified
CPT/HCPCS: 0241U; 99212

== ENCOUNTER 2024-04-21 12:54 | Outpatient (AMB) | payer OTHER, SELFPAY ==
[2024-04-21 12:59] VITALS: BP 120/70; BMI 26.0
--- NOTE | 2024-04-21 12:59 | MHC.PC.OV ---
Vital Signs 04/21/24 12:59 Height 5 ft 8 in Weight 171 lb BMI 26.0 BP 120/70 Blood Pressure Location Lt brachial Position Sitting Intake Visit Reasons: Annual Exam Intake Note: patient here for a physical exam Warehouse Distribution Specialist Required: Yes Warehouse Distribution Specialist Language: Charge Out Clerk Name: Natacha Hurtado MD Information Interpreted: non-clinical & clinical Accompanied by: Self / Same As Patient Allergies No Known Allergies Allergy (Verified 04/21/24 13:50) Medication List - Last Reconciled 04/21/24 by Natacha Hurtado MD Brace,wrist (Wrist Brace - one) As directed cholecalciferol (vitamin D3) 25 mcg PO DAILY 90 days clonazepam 1 mg PO BEDTIME PRN lidocaine 4% (Aspercreme (lidocaine)) 1 patch topical DAILY PRN loratadine (Allergy Relief (loratadine)) 10 mg PO DAILY PRN 90 days meloxicam 15 mg PO DAILY 30 days pantoprazole 40 mg PO DAILY 90 days sertraline 25 mg PO DAILY sildenafil 50 mg PO DAILY PRN 30 days trazodone 100 mg PO BEDTIME Tobacco use date assessed: 04/21/24 Fall risk assessment: No Falls in past year Last assessed Fall Risk: 04/21/24 Dental Screening Dental Screen Date: 04/21/24 Did you have a dental visit in the last 12 months?: No Did you have a dental problem in the last 6 months where you did not have access to dental care?: No Was dental information given to patient?: Patient has dentist HPI HPI Comments History of Present Illness Details The patient is a 63-year-old male presenting for his physical exam. Additionally, the patient has a known allergy to the influenza vaccine. The patient reported receiving the flu vaccine once and experiencing significant adverse effects thereafter, preventing further vaccinations. Current measures include ongoing neurologic assessment and avoidance of influenza vaccination due to adverse reaction. He had a colonoscopy 2018 which was normal and next colonoscopy should be 2028. He also has leukocytosis and this will be repeated. He has been smoking for over 40 years and will be referred to pulmonology for possible lung cancer screening. He also has mild major depression follow by Psychiatry. [facility] Medical History (Updated 04/21/24 @ 14:21 by Natacha Hurtado MD) Syncope Screening for prostate cancer Screening for hyperlipidemia Screening for colon cancer Screening for diabetes mellitus Anxiety Depression Colon cancer Surgical History History of colonoscopy Family History Mother Hypertension Diabetes Father No problems noted. Other Substance use disorder Social History Housing: Apartment Alcohol intake: never Patient Tobacco Use Status: Current everyday Tobacco user Tobacco use type: Cigarette Cigarette Packs Per Day: 2 e-Cigarette/Vaping Use: Never Used Second Hand Smoke Exposure: No service: No Current occupational status: unemployed and disabled Current occupation: Right Handed Cognitive needs: No Hearing needs: No Vision needs: Yes (glasses) Questionnaire PHQ-9 Over the last 2 weeks, how often have you been bothered by any of the following problems? 1. Little interest or pleasure in doing things: several days 2. Feeling down, depressed, or hopeless: more than half the days 3. Trouble falling or staying asleep, or sleeping too much: several days 4. Feeling tired or having little energy: several days 5. Poor appetite or overeating: several days 6. Feeling bad about yourself - or that you are a failure or have let yourself or your family down: several days 7. Trouble concentrating on things, such as reading the newspaper or watching television: not at all 8. Moving or speaking so slowly that other people could have noticed. Or the opposite - being so fidgety or restless that you have been moving around a lot more than usual: not at all 9. Thoughts that you would be better off or of hurting yourself in some way: not at all Total score: 7 Depression Screening Interpretation: Positive Depression Screening Follow-up: Existing condition, In treatment, Community Mental Health Worker F/U and Follow-up Visit Requested Depression Screening Done: Yes 27812 - PHQ-9 Billing: Yes Source: Developed by Drs. Wilfredo Figueroa, Tanja Garcia, Reilly Garcia and colleagues, with an educational mary from [employer]. Thrive Questionnaire Date Thrive assessed: 04/21/24 I am a: Patient What is your living situation today?: I have a steady place to live Within the past 12 months, did the food you bought not last and you didn't have the money to get more?: Sometimes True Within the past 12 months, did you worry whether your food would run out before you got money to buy more?: Never true Do you have trouble paying for medicines?: No Do you have trouble getting transportation to medical appointments?: No Do you have trouble paying your heating and electricity bill?: No Do you have trouble taking care of your child, family member or friend?: No Do you have trouble with day-to-day activities such as bathing, preparing meals, shopping, managing finances, etc.?: Yes Are you currently unemployed and looking for a job?: I choose not to answer this question Are you interested in more education?: No Please select the resources that you would like help with: None Currently or been in a relationship where the following occur: No concerns reported THRIVE Score: 1 AUDIT C Alcohol Use Questionnaire (AUDIT-C) 1. How often do you have a drink containing alcohol?: Never 3. How often do you have six or more drinks on one occasion?: Never Total Score: 0 Score Reviewed/Action Taken: No HEIDI-7 AMB Questionnaire HEIDI-7 Date HEIDI - 7 assessed: 04/21/24 Feeling nervous, anxious, or on edge: 2 = More than half the days Not being able to stop or control worryin = Several days Worrying too much about different things: 1 = Several days Trouble relaxin = More than half the days Being so restless that it is hard to sit still: 1 = Several days Becoming easily annoyed or irritable: 2 = More than half the days Feeling afraid as if something awful might happen: 1 = Several days Total HEIDI-7 score (0-4 normal; 5-9 mild; 10-14 moderate; 15-21 severe): 10 Source: Developed by Drs. Wilfredo Figueroa, Tanja Garcia, Reilly Garcia and colleagues, with an educational mary from [employer]. HEIDI-7 Assessment Billing HEIDI-7 Assessment Tool: HEIDI-7 Assessment 20352 Review of Systems Const All systems reviewed & are unremarkable except as noted in HPI and below Card Denies chest pain at rest, Denies chest pain with activity, Denies edema, Denies irregular heart rhythm, Denies claudication, Denies dyspnea, Denies dyspnea on exertion, Denies orthopnea, Denies paroxysmal nocturnal dyspnea and Denies slow heart rate Resp Denies cough, Denies dyspnea and Denies dyspnea on exertion GI Denies abdominal pain, Denies change in bowel habits, Denies excessive flatus, Denies nausea and Denies vomiting Physical exam (Primary Care) Vital Signs: Last Vital Signs BP 120/70 04/21/24 12:59 BMI result Body Mass Index 26.0 Tobacco/Smoking Status: Tobacco use Status Tobacco use date assessed 04/21/24 04/21/24 13:03 Patient Tobacco Use Status Current everyday Tobacco 04/21/24 13:03 Tobacco use type Cigarette 04/21/24 13:03 e-Cigarette/Vaping Use Never Used 04/21/24 13:03 PHQ-9: PHQ-9 Score PHQ-9: Total score 7 04/21/24 13:54 Depression Screening Interpretation: Positive Depression Screening Follow-up: Existing condition, In treatment, Community Mental Health Worker F/U and Follow-up Visit Requested Thrive Assessment: Date of Thrive Assessment Date Thrive assessed 04/21/24 04/21/24 13:05 Currently or been in a relationship where the following occur: No concerns reported HENMT Head: Yes normal to inspection, Yes normocephalic and Yes atraumatic Ears: external ears normal Eyes General: appearance normal, both eyes and all related structures Eyelids: Yes eyelids normal Conjunctivae: conjunctivae normal Neck Neck: Yes normal visual inspection and Yes supple Resp Effort & Inspection: normal respiratory effort Auscultation: clear to auscultation bilaterally Cardio Jugular venous distension: no JVD Rate: regular rate Rhythm: regular rhythm Heart sounds: S1 normal heart sound present and S2 normal heart sound present GI Inspection: Yes normal to inspection Palpation (GI): Soft to palpation and nontender Auscultation: normal bowel sounds Skin General skin exam: no rashes or lesions noted Neuro General: no focal motor deficits Extrem General: Yes full ROM Psych Appearance: grossly normal Office Procedures Flu Questionnaire Does the patient have a severe egg allergy?: No Immunizations Fluarix Triv [id number] (PF) 45 mcg (15 mcg x 3)/0.5 mL IM syringe Performing Provider: Natacha Hurtado MD [facility] Documented (not given) by: Elvie Proctor Avtar on 04/21/24 13:03 Reason Not Given: Patient Refused Coding Level of Care Code Est Pt Level 3 (34153) Est Pt Prev Care 40-64y(68775) Diagnoses Adult general medical exam Z00.00 Mild major depression F32.0 Smoker F17.200 Leukocytosis D72.829 Additional Codes HEIDI-7 Assessment Billing - HEIDI-7 Assessment Tool: HEIDI-7 Assessment 59877 ([id number]) PHQ-9 - 47924 - PHQ-9 Billing: Yes ([id number]) Time Spent (min) 34 Assessment & Plan Assessment & Plan (1) Adult general medical exam: Code(s): Z00.00 - Encounter for general adult medical examination without abnormal findings Category: Medical (2) Mild major depression: Code(s): F32.0 - Major depressive disorder, single episode, mild Category: Medical (3) Smoker: Code(s): F17.200 - Nicotine dependence, unspecified, uncomplicated Category: Social Hx (4) Leukocytosis: Code(s): D72.829 - Elevated white blood cell count, unspecified Category: Medical Plan - Referral to support services specialist for further evaluation of respiratory function - Scheduling a colonoscopy as per preventative screening guidelines - Continued neurological evaluation with pending follow-up from EEG results Patient was informed and verbally consented to the use of an ambient scribe for clinic note documentation during this visit. Orders: Orders Influenza [id number] Immunization Today Z23 - Encounter for immunization Complete Blood Count Auto Diff Today D72.829 - Elevated white blood cell count, unspecified Referrals Pulmonology Referral F17.200 - Nicotine dependence, unspecified, uncomplicated Open Access Screening Colonoscopy Referral Z12.12 - Encounter for screening for malignant neoplasm of rectum Patient Instructions: - Continue scheduled follow-up with neurology for EEG results - Avoid influenza vaccination due to allergy - Undergo colonoscopy as planned - Follow up with support services specialist for lung health evaluation
== END 2024-04-21 14:01 | disposition home or self-care (01) ==
PROVIDERS: PCP Internal Medicine; Visit Provider Internal Medicine
DX: Z00.00 Encounter for general adult medical examination without abnormal findings (principal); F32.0 Major depressive disorder, single episode, mild; F17.200 Nicotine dependence, unspecified, uncomplicated; D72.829 Elevated white blood cell count, unspecified

== ENCOUNTER → 2024-04-21 12:54 | Outpatient (BNVA) | payer OTHER, SELFPAY | PROVIDERS: PCP Internal Medicine; Visit Provider Internal Medicine | DX: Z00.00 Encounter for general adult medical examination without abnormal findings (principal); F32.0 Major depressive disorder, single episode, mild; D72.829 Elevated white blood cell count, unspecified; F17.210 Nicotine dependence, cigarettes, uncomplicated | CPT/HCPCS: 96127; 99396 ==

== ENCOUNTER 2024-05-28 09:17 | Outpatient (AMB) | payer OTHER, SELFPAY ==
--- NOTE | 2024-05-28 07:40 | MHC.OFFVIS ---
Intake Visit Reasons: LDCT Allergies No Known Allergies Allergy (Verified 04/21/24 13:50) HPI HPI LDCT: Details: Initial visit for this 63yo smoker with a 80+PYH. Patient started smoking at age 11 for 52 years at 1.5-2ppd. . Denies marijuana use. Denies second hand smoke exposure. Denies exposure to chemicals or substances like asbestos. . Denies known family history of lung cancer. Denies personal history of cancers. Denies chest CT in last year. . Denies recent travel outside the [place]. Denies recent respiratory illness or recent hospitalization for respiratory issues. Reports history testing positive for COVID. Admits receiving COVID Vaccine. x 3. . Denies fever, chills, new/worsening cough, hemoptysis, hoarseness or dysphagia. Denies significant chest pain, significant dyspnea or unintentional weight loss. Patient Lung Cancer Screening Questionnaire reviewed with patient by provider. . Shared Decision Making Completed. Patient meets criteria. Discussed in detail with patient, the risk vs benefit of LDCT screening. Patient consents to proceed with scan. Discussed smoking cessation. Consulting Project Director Services used - Good: [id number] [facility] Medical History (Updated 05/28/24 @ 09:31 by Cherelle Banegas PA-C) Chronic GERD Nicotine dependence, cigarettes, uncomplicated Tubular adenoma of colon (~2015) Syncope Anxiety Depression Surgical History (Updated 04/29/24 @ 10:11 by Cherelle Banegas PA-C) History of colonoscopy Family History Mother Hypertension Diabetes Father No problems noted. Other Substance use disorder Social History (Updated 05/28/24 @ 09:31 by Cherelle Banegas PA-C) Housing: Apartment Alcohol intake: never Patient Tobacco Use Status: Current everyday Tobacco user Tobacco use type: Cigarette Cigarette Packs Per Day: 2 Years Smoked: (onset 11yo, 1.5-2ppd x 52yrs, 80+pyh) e-Cigarette/Vaping Use: Never Used Second Hand Smoke Exposure: No service: No Current occupational status: unemployed and disabled Current occupation: Right Handed Cognitive needs: No Hearing needs: No Vision needs: Yes (glasses) Assessment & Plan Assessment & Plan (1) Nicotine dependence, cigarettes, uncomplicated: Comment: (onset 11yo, 1.5-2ppd x 52yrs, 80+pyh) Code(s): F17.210 - Nicotine dependence, cigarettes, uncomplicated Category: Medical Plan: - SDM visit completed today in office. - Patient meets criteria for LDCT for lung cancer screening purposes and is asymptomatic. - Smoking cessation counseling offered. Patients can always call [phone]. - Will arrange for a LDCT scan of the chest for screening purposes at [facility]. - Risks, benefits, and alternatives were discussed in detail and the patient agrees to proceed. - Risks discussed include but are not limited to: radiation exposure, anxiety during testing and while awaiting results, false negatives, false positives and possibility of additional intervention such as further imaging or surgical procedures for benign disease. - Benefits are obviously detection of lung cancer at an early stage which can lead to improved outcomes. - Discussed the importance of screening program compliance with adherence to yearly LDCT scan as scheduled - or sooner interval scans for personalized screening regimen. - Discussed follow up plan. Our office will send a letter discussing results and if needed set up phone call and office visit based on CT findings. - Patient educated on results categorization and the management decisions for suspicious findings potentially found on the screening LDCT scan. Any patient with a Lung RADS score of 3 or 4 will be reviewed by a multidisciplinary team at [facility] to form a plan of action in regards to scan findings. - If further work up is warranted for a suspicious lung finding this will be followed by the Lung Cancer Screening program in conjunction with the Thoracic Surgery Department at [facility]. - A copy of the office note and LDCT will be sent to the patient's PCP - as well as documentation on any associated further plans of care. - Incidental findings on LDCT are the PCP's responsibility. These findings are indicated with an S finding on the LDCT Assessment. A note discussing the findings will be sent to the PCP who is then responsible for further management. - All questions answered.? Coding Level of Care Code Lung Cancer Screening G0296 Diagnoses Nicotine dependence, cigarettes, uncomplicated F17.210
== END 2024-05-28 09:58 | disposition home or self-care (01) ==
PROVIDERS: PCP Internal Medicine; Visit Provider Physician Assistant Medical
DX: F17.210 Nicotine dependence, cigarettes, uncomplicated (principal)
CPT/HCPCS: G0296

== ENCOUNTER 2024-05-28 09:37 | Outpatient (REF) | payer OTHER, SELFPAY ==
--- NOTE | ~2024-05-28 | CT_ITS ---
CLINICAL HISTORY: F17.210 - Nicotine dependence, cigarettes, uncomplicated CT lung cancer screening (LDCT) Comparison: None Technique: Axial CT images of the chest using low-dose technique. Referring provider counseled the patient on shared decision-making for LDCT screening. Additional counseling was provided on smoking cessation. Effective radiation dose total: DLP 38.2 mGycm, CTDIvol 1.2 mGy. Findings: Lung: No lung nodule seen Coronary artery calcifications: None A few small calcified right hepatic granulomas. Other: None Impression: LungRADS 1: Negative exam. Continue annual screening with low dose Chest CT in 12 months. ##L1# Category 1: Normal; continue annual screening Category 2: Benign appearance or behavior, continue annual screening Category 3: Probably benign, [address] recommended Category 4A: Suspicious, [address] recommended; may consider PET/CT Category 4B: Suspicious, Additional diagnostics and/or tissue sampling recommended Category 4X: Suspicious, Additional diagnostics and/or tissue sampling recommended Category 0: Recalls (incomplete screen due to Incomplete coverage, Noise, Respiratory motion, Expiration, Obscured by acute abnormality) This document has been electronically signed by: Senia Tellez MD on 05/28/2024 11:24:58
== END 2024-05-28 09:38 | disposition home or self-care (01) ==
LOC: HO.CT 09:37
PROVIDERS: PCP Internal Medicine; Visit Provider Physician Assistant Medical
DX: Z12.2 Encounter for screening for malignant neoplasm of respiratory organs (principal); F17.210 Nicotine dependence, cigarettes, uncomplicated
CPT/HCPCS: 71271; G0296

== ENCOUNTER → 2024-05-28 09:39 | Outpatient (BNV) | payer OTHER, SELFPAY | PROVIDERS: PCP Internal Medicine; Visit Provider Radiology Diagnostic Radiology | DX: F17.210 Nicotine dependence, cigarettes, uncomplicated (principal) | CPT/HCPCS: 71271 ==

== ENCOUNTER 2024-12-31 10:23 | Outpatient (AMB) | payer OTHER, SELFPAY ==
[2024-12-31 10:37] VITALS: BP 110/60; PULSE 69; RESP 18; TEMP 36.4; O2SAT 95; BMI 25.6
--- NOTE | 2024-12-31 10:37 | A.OFFPC_ITS ---
Vital Signs 12/31/24 10:37 Height 5 ft 8 in Weight 168 lb 4 oz BMI 25.6 BP 110/60 Blood Pressure Location Lt brachial Position Sitting Respiration 18 Pulse 69 Pulse Source Pulse Oximeter Temp 97.5 F Temp Source Temporal Artery Scan Pulse Oximetry (%) 95 Oxygen Delivery Method Room Air Intake Visit Reasons: depression Drive Tester Required: No Accompanied by: Self / Same As Patient Allergies No Known Allergies Allergy (Verified 12/31/24 11:11) Medication List - Last Reconciled 12/31/24 by Natacha Hurtado MD Brace,wrist (Wrist Brace - one) As directed cholecalciferol (vitamin D3) 25 mcg PO DAILY 90 days clonazepam 1 mg PO BEDTIME PRN lidocaine 4% (Aspercreme (lidocaine)) 1 patch topical DAILY PRN loratadine (Allergy Relief (loratadine)) 10 mg PO DAILY PRN 90 days meloxicam 15 mg PO DAILY 30 days pantoprazole 40 mg PO DAILY 90 days sertraline 25 mg PO DAILY sildenafil 50 mg PO DAILY PRN 30 days trazodone 100 mg PO BEDTIME Tobacco use date assessed: 12/31/24 Fall risk assessment: No Falls in past year Last assessed Fall Risk: 12/31/24 Dental Screening Dental Screen Date: 12/31/24 Did you have a dental visit in the last 12 months?: No Did you have a dental problem in the last 6 months where you did not have access to dental care?: No Was dental information given to patient?: Patient has dentist HPI HPI Comments History of Present Illness Details The patient is a 64-year-old male presenting with follow-up for de pression and management of chronic conditions. The patient has a history of depression, which is currently managed by psychiatry and reported to be well-controlled. He is on trazodone for sleep, which is part of his depression management regimen. The patient also reports erectile dysfunction, which is being monitored. He has a history of gastroesophageal reflux disease, which is currently stable with no significant symptoms reported at this time. In 2009, the patient underwent a colonoscopy that revealed a tubular adenoma, necessitating a follow-up colonoscopy every five years. The patient acknowledges the need for another colonoscopy due to the previous findings. [facility] Medical History (Updated 12/31/24 @ 11:20 by Natacha Hurtado MD) Chronic GERD Nicotine dependence, cigarettes, uncomplicated Tubular adenoma of colon (~2016) Syncope Anxiety Depression Surgical History History of colonoscopy Family History Mother Hypertension Diabetes Father No problems noted. Other Substance use disorder Social History Housing: Apartment Alcohol intake: never Patient Tobacco Use Status: Current everyday Tobacco user Tobacco use type: Cigarette Cigarette Packs Per Day: 2 Years Smoked: (onset 11yo, 1.5-2ppd x 52yrs, 80+pyh) e-Cigarette/Vaping Use: Never Used Second Hand Smoke Exposure: No service: No Current occupational status: unemployed and disabled Current occupation: Right Handed Cognitive needs: No Hearing needs: No Vision needs: Yes (glasses) Questionnaire Thrive Questionnaire Date Thrive assessed: 04/14/24 I am a: Patient What is your living situation today?: I have a steady place to live Within the past 12 months, did the food you bought not last and you didn't have the money to get more?: Sometimes True Within the past 12 months, did you worry whether your food would run out before you got money to buy more?: Never true Do you have trouble paying for medicines?: No Do you have trouble getting transportation to medical appointments?: No Do you have trouble paying your heating and electricity bill?: No Do you have trouble taking care of your child, family member or friend?: No Do you have trouble with day-to-day activities such as bathing, preparing meals, shopping, managing finances, etc.?: Yes Are you currently unemployed and looking for a job?: I choose not to answer this question Are you interested in more education?: No Please select the resources that you would like help with: None Currently or been in a relationship where the following occur: No concerns reported THRIVE Score: 1 HEIDI-7 AMB Questionnaire HEIDI-7 Date HEIDI - 7 assessed: 04/21/24 Source: Developed by Drs. Wilfredo Figueroa, Tanja Garcia, Reilly Garcia and colleagues, with an educational mary from [employer]. Review of Systems Const All systems reviewed & are unremarkable except as noted in HPI and below Card Denies chest pain at rest, Denies chest pain with activity, Denies edema, Denies irregular heart rhythm, Denies claudication, Denies dyspnea, Denies dyspnea on exertion, Denies orthopnea, Denies paroxysmal nocturnal dyspnea and Denies slow heart rate Resp Denies cough, Denies dyspnea and Denies dyspnea on exertion Physical exam (Primary Care) Vital Signs: Last Vital Signs Temp 97.5 F 12/31/24 10:37 Pulse 69 12/31/24 10:37 Resp 18 12/31/24 10:37 BP 110/60 12/31/24 10:37 Pulse Ox 95 12/31/24 10:37 Oxygen Delivery Method Room Air 12/31/24 10:37 BMI result Body Mass Index 25.6 Tobacco/Smoking Status: Tobacco use Status Tobacco use date assessed 12/31/24 12/31/24 10:43 Patient Tobacco Use Status Current everyday Tobacco 12/31/24 10:43 Tobacco use type Cigarette 12/31/24 10:43 e-Cigarette/Vaping Use Never Used 12/31/24 10:43 Are you ready to quit: No Tobacco cessation counseling provided: Yes Items discussed: Nicotine replacement and QuitWorks Relapse Prevention: discussed the importance of a supportive environment, discussed extending NRT, discussed negative mood or depression after quitting, weight gain after smoking is common and discussed dietary, exercise and/or lifestyle changes Number of minutes spent counselin CPT code: 90720 - 4-10 Minutes Thrive Assessment: Date of Thrive Assessment Date Thrive assessed 04/14/24 12/31/24 10:43 Currently or been in a relationship where the following occur: No concerns rep orted Resp Effort & Inspection: normal respiratory effort Auscultation: clear to auscultation bilaterally Cardio Jugular venous distension: no JVD Rate: regular rate Rhythm: regular rhythm Heart sounds: S1 normal heart sound present and S2 normal heart sound present Extrem General: Yes full ROM Coding Level of Care Code Est Pt Level 4 (44973) Complex EM visit Add On G2211 Diagnoses Mild major depression F32.0 Anxiety F41.9 Chronic GERD K21.9 Tubular adenoma of colon D12.6 Bilateral low back pain with left-sided sciatica, unspecified chronicity M54.5 Insomnia G47.00 Erectile dysfunction N52.9 Additional Codes Vital Signs *Quality* - CPT code: 17870 - 4-10 Minutes ([id number]) Time Spent (min) 23 Assessment & Plan Assessment & Plan (1) Mild major depression: Code(s): F32.0 - Major depressive disorder, single episode, mild Category: Medical (2) Anxiety: Code(s): F41.9 - Anxiety disorder, unspecified Category: Medical (3) Chronic GERD: Code(s): K21.9 - Gastro-esophageal reflux disease without esophagitis Category: Medical (4) Tubular adenoma of colon: Onset Date: ~2015 Comment: (TA on 2016 scope) Code(s): D12.6 - Benign neoplasm of colon, unspecified Category: Medical (5) Low back pain: Code(s): M54.5 - Low back pain Category: Medical (6) Insomnia: Code(s): G47.00 - Insomnia, unspecified Category: Medical (7) Erectile dysfunction: Code(s): N52.9 - Male erectile dysfunction, unspecified Category: Medical Plan Plan Patient was informed and verbally consented to the use of an ambient scribe for clinic note documentation during this visit. 1. Depression The patient's depression is currently well-controlled under psychiatric care. He is prescribed trazodone for sleep, which is part of his management plan. 2. Erectile Dysfunction Erectile dysfunction is being monitored, with no specific treatment changes discussed during this visit. 3. Gastroesophageal Reflux Disease The patient's gastroesophageal reflux disease is currently stable, with no significant symptoms reported. 4. Tubular Adenoma The patient requires a follow-up colonoscopy due to a history of tubular adenoma found in 2009. A colonoscopy is recommended every five years to monitor for recu rrence. Orders: Orders Lipid Panel 4 Months E78.5 - Hyperlipidemia, unspecified Vitamin D 25-OH Total 4 Months E55.9 - Vitamin D deficiency, unspecified Comprehensive [place]. Panel Fast 4 Months K21.9 - Gastro-esophageal reflux disease without esophagitis Referrals Open Access Screening Colonoscopy Referral Z12.12 - Encounter for screening for malignant neoplasm of rectum
== END 2024-12-31 11:19 | disposition home or self-care (01) ==
LOC: HO.HMCH 10:24
PROVIDERS: PCP Internal Medicine; Visit Provider Internal Medicine
DX: F32.0 Major depressive disorder, single episode, mild (principal); F41.9 Anxiety disorder, unspecified; K21.9 Gastro-esophageal reflux disease without esophagitis; D12.6 Benign neoplasm of colon, unspecified; M54.50 Low back pain, unspecified; G47.00 Insomnia, unspecified; N52.9 Male erectile dysfunction, unspecified

== ENCOUNTER → 2024-12-31 10:23 | Outpatient (BNVA) | payer OTHER, SELFPAY | PROVIDERS: PCP Internal Medicine; Visit Provider Internal Medicine | DX: K21.9 Gastro-esophageal reflux disease without esophagitis (principal); F32.A Depression, unspecified; N52.9 Male erectile dysfunction, unspecified; F32.0 Major depressive disorder, single episode, mild; F41.9 Anxiety disorder, unspecified; M54.42 Lumbago with sciatica, left side; G47.00 Insomnia, unspecified; E78.5 Hyperlipidemia, unspecified; E55.9 Vitamin D deficiency, unspecified | CPT/HCPCS: 99212 ==

== ENCOUNTER 2025-03-26 13:10 | Outpatient (AMB) | payer OTHER, SELFPAY ==
--- NOTE | 2025-03-26 13:12 | MHC.OFFWIV ---
Intake Vital Signs 03/26/25 13:18 Height 5 ft 8 in Weight 170 lb BMI 25.8 BP 134/72 Blood Pressure Location Rt brachial Position Sitting Respiration 16 Pulse 85 Pulse Source Pulse Oximeter Temp 98.2 F Temp Source Oral Pulse Oximetry (%) 97 Oxygen Delivery Method Room Air Intake Visit Reasons: EP Sore throat Intake Note: Pt is here today c/o sore throat and cough x2days Patient Tobacco Use Status: Current everyday Tobacco user Investor Relations Coordinator Required: No Allergies No Known Allergies Allergy (Verified 03/26/25 13:23) Medication List - Last Reconciled 03/26/25 by FLORINDA Painter- Brace,wrist (Wrist Brace - one) As directed cholecalciferol (vitamin D3) 25 mcg PO DAILY 90 days clonazepam 1 mg PO BEDTIME PRN lidocaine 4% (Aspercreme (lidocaine)) 1 patch topical DAILY PRN loratadine (Allergy Relief (loratadine)) 10 mg PO DAILY PRN 90 days meloxicam 15 mg PO DAILY 30 days pantoprazole 40 mg PO DAILY 90 days sertraline 25 mg PO DAILY sildenafil 50 mg PO DAILY PRN 30 days trazodone 100 mg PO BEDTIME HPI HPI Comments History of Present Illness Details History of Present Illness The patient is a 64 year old male presenting with a sore throat and cough. Acute viral upper respiratory infection: - The patient reports a two-day history of sore throat and cough. - He also reports a mild headache. - He has tried Tylenol at home without relief. Tobacco use: - The patient is a current everyday smoker. Past Medical History - Current everyday smoker. - No known allergies to medicine. Review of Systems - HEENT: Reports sore throat. - Respiratory: Reports cough. - Neurological: Reports a mild headache. - All other systems: The patient denies any other symptoms. Physical Exam General: Well developed, well nourished, in no acute distress. Appears stated age. Head: Normocephalic, atraumatic. Eyes: Pupils are equal, round and reactive to light and accommodation. Conjunctivae are clear. Ears: TM intact and clear bilat Nose: Mild congestion Pharynx: Mild erythema, no exudate, Uvula midline, no ac adenopathy Lungs: Clear to auscultation bilaterally. No rales, rhonchi or wheeze noted. Good air flow in all renae. Heart: Regular rate and rhythm. No murmurs, click, rubs or gallops are noted. Skin: PWD Results - Tests: A rapid strep test was negative. Medical Decision Making The patient is a 64-year-old male who is a current smoker, presenting with a two-day history of sore throat, cough, and a mild headache. The physical exam was unremarkable, with clear lungs and normal-appearing ears and throat. A rapid strep test was performed and came back negative, ruling out streptococcal pharyngitis. The clinical presentation is most consistent with a viral upper respiratory infection, given that influenza and COVID are currently circulating. Consequently, antibiotics are not indicated, and the treatment plan is focused on symptomatic relief. To manage the cough, Tessalon was prescribed. Nkaa-mhm-xrkpqiq analgesics such as ibuprofen or Tylenol were recommended for the sore throat. The patient was advised on supportive measures including rest and increased fluid intake, and was instructed to return if symptoms worsen or do not improve within 7 to 10 days. He was also counseled on the contagious nature of his illness. Plan 1. Acute Viral Upper Respiratory Infection - The patient's symptoms are attributed to a viral infection, as the strep throat test was negative. - A prescription for Tessalon was sent to the patient's pharmacy to be taken three times a day as needed for the cough. - It was recommended that the patient use wiln-fpa-ysxghwo ibuprofen or Tylenol for the sore throat. - The patient was advised to rest and increase fluid intake. - The patient was instructed to return for reevaluation if he feels worse or if his symptoms do not improve within 7 to 10 days, and especially if he is worse after 14 days. - He was counseled to avoid contact with individuals who are susceptible to illness, such as babies and the elderly. 2. Tobacco Use - The patient is noted to be a current everyday smoker, which is a contributing factor to be aware of in respiratory illnesses. Patient Instructions - Your sore throat and cough are from a virus, so antibiotics will not help. - A prescription for Tessalon, a pill to help your cough, has been sent to the [facility] on [facility] [address] [facility] in [place]. You can take it three times a day as you need it. - You can use tdcb-xwd-fdfdmcr medicines like Tylenol or ibuprofen to help your sore throat. - Drink plenty of fluids and get a lot of rest. - It can take 7 to 10 days to start feeling better. Come back to the clinic if you feel worse, or if you are not better after 14 days. - To keep from spreading the virus, try to avoid close contact with people who get sick easily, like babies and older adults. Consent Patient was informed and verbally consented to the use of an ambient scribe for clinic note documentation during this visit. [facility] Medical History Chronic GERD Nicotine dependence, cigarettes, uncomplicated Tubular adenoma of colon (~2015) Syncope Anxiety Depression Surgical History History of colonoscopy Family History Mother Hypertension Diabetes Father No problems noted. Other Substance use disorder Social History Housing: Apartment Alcohol intake: never Patient Tobacco Use Status: Current everyday Tobacco user Tobacco use type: Cigarette Cigarette Packs Per Day: 2 Years Smoked: (onset 11yo, 1.5-2ppd x 52yrs, 80+pyh) e-Cigarette/Vaping Use: Never Used Second Hand Smoke Exposure: No service: No Current occupational status: unemployed and disabled Current occupation: Right Handed Cognitive needs: No Hearing needs: No Vision needs: Yes (glasses) Physical Exam Vital Signs: Last Vital Signs Temp 98.2 F 03/26/25 13:18 Pulse 85 03/26/25 13:18 Resp 16 03/26/25 13:18 BP 134/72 03/26/25 13:18 Pulse Ox 97 03/26/25 13:18 Oxygen Delivery Method Room Air 03/26/25 13:18 BMI result Body Mass Index 25.8 Results AMB Rapid Strep AMB Rapid Strep Negative Last Edit by Nina Mixon CMA on 03/26/25 13:25 Results Reviewed Results Reviewed: Laboratory Last Values Strep Scn Rapid Clinic Negative 03/26/25 13:11 Assessment & Plan Assessment & Plan (1) Viral URI with cough: Code(s): J06.9 - Acute upper respiratory infection, unspecified (2) Nicotine dependence, cigarettes, uncomplicated: Comment: (onset 11yo, 1.5-2ppd x 52yrs, 80+pyh) Code(s): F17.210 - Nicotine dependence, cigarettes, uncomplicated Plan . Orders: Orders AMB Rapid Strep Screen Today Z13.9 - Encounter for screening, unspecified Medications: New benzonatate 100 mg PO TID PRN 30 caps 1RF cough 10 days Patient Instructions: Why aren't I getting antibiotics? I am so sick. I need them. I am empathetic that you're not feeling well & want you to recover quickly. The reason I have not prescribed antibiotics today is because I am an [employer]. What does that mean? It means that I am aiding in reducing Antimicrobial resistance (AMR). Antimicrobial resistance (AMR) is one of the top global public health and development threats. It is estimated that bacterial AMR was directly responsible for 1.27 million global deaths in 2019 and contributed to 4.95 million deaths. The misuse and overuse of antimicrobials in humans, animals and plants are the main drivers in the development of drug-resistant pathogens. Taking an antibiotic increases a patient?s chance of becoming colonized or infected with a resistant organism, and taking an antibiotic when not needed can lead to the development of antibiotic resistance. So the why... is because I care! Coding Level of Care Code Est Pt Level 3 (40692) Diagnoses Viral URI with cough J06.9 Nicotine dependence, cigarettes, uncomplicated F17.210
[2025-03-26 13:18] VITALS: BP 134/72; PULSE 85; RESP 16; TEMP 36.8; O2SAT 97; BMI 25.8
== END 2025-03-26 13:47 | disposition home or self-care (01) ==
PROVIDERS: PCP Internal Medicine; Visit Provider Nurse Practitioner Family
DX: J06.9 Acute upper respiratory infection, unspecified (principal); F17.210 Nicotine dependence, cigarettes, uncomplicated; Z13.9 Encounter for screening, unspecified

== ENCOUNTER → 2025-03-26 13:10 | Outpatient (BNVA) | payer OTHER, SELFPAY | PROVIDERS: PCP Internal Medicine; Visit Provider Nurse Practitioner Family | DX: J06.9 Acute upper respiratory infection, unspecified (principal); F17.210 Nicotine dependence, cigarettes, uncomplicated | CPT/HCPCS: 87880; 99212 ==

== ENCOUNTER 2025-03-29 14:27 | Outpatient (REF) | payer OTHER, SELFPAY ==
[2025-03-29 18:29] LABS: Resp Syncy Virus RNA Qual PCR NEGATIVE (Negative); SARS COV2 PCR INHOUSE NEGATIVE (Negative)
== END 2025-03-29 14:28 | disposition home or self-care (01) ==
LOC: HO.LAB 14:27
PROVIDERS: Physician Assistant; PCP Internal Medicine
DX: Z03.818 Encounter for observation for suspected exposure to other biological agents ruled out (principal)
CPT/HCPCS: 87637

== ENCOUNTER 2025-03-29 14:27 | Outpatient (AMB) | payer OTHER, SELFPAY ==
[2025-03-29 14:44] VITALS: BP 112/70; PULSE 92; TEMP 37.3; O2SAT 100; BMI 26.1
--- NOTE | 2025-03-29 14:44 | AM.OFFWIN_ITS ---
Intake Vital Signs 03/29/25 14:44 Height 5 ft 8 in Weight 172 lb BMI 26.1 BP 112/70 Blood Pressure Location Rt brachial Position Sitting Pulse 92 Pulse Source Pulse Oximeter Temp 99.1 F Temp Source Oral Pulse Oximetry (%) 100 Oxygen Delivery Method Room Air Intake Visit Reasons: EP-cough, sore throat, sneezing, headache Intake Note: Patient presents c/o cough, sinus congestion, headache. Was seen on friday & given tessalon perrles (strep was negative that day) Patient Tobacco Use Status: Current everyday Tobacco user Allergies No Known Allergies Allergy (Verified 03/29/25 14:48) HPI HPI Comments History of Present Illness Details History German video diplomatic interpreter was used for this visit. - The patient is a 64 year old male pres enting with worsening cough, sore throat, and sinusitis. - He was seen on Friday, March 26 at [facility] for a strong cough, sore throat, and sinusitis and was diagnosed with a viral infection. - During that visit, a rapid strep test was negative, and he was prescribed Tessalon Perles for his cough, which he reports did not provide relief. - The patient reports a very hard cough but denies any fevers, shortness of breath, or wheezing. - He confirms he smokes cigarettes. - He denies a history of asthma, COPD, o r diabetes. [facility] Medical History Chronic GERD Nicotine dependence, cigarettes, uncomplicated Tubular adenoma of colon (~2015) Syncope Anxiety Depression Surgical History History of colonoscopy Family History Mother Hypertension Diabetes Father No problems noted. Other Substance use disorder Social History Housing: Apartment Alcohol intake: never Patient Tobacco Use Status: Current everyday Tobacco user Tobacco use type: Cigarette Cigarette Packs Per Day: 2 Years Smoked: (onset 11yo, 1.5-2ppd x 52yrs, 80+pyh) e-Cigarette/Vaping Use: Never Used Second Hand Smoke Exposure: No service: No Current occupational status: unemployed and disabled Current occupation: Right Handed Cognitive needs: No Hearing needs: No Vision needs: Yes (glasses) Review of Systems Narrative Review of Systems - Constitutional: Denies fever. - HEENT: Reports sore throat and sinus pain. Denies ear pain. - Respiratory: Reports a severe cough. Denies shortness of breath or wheezing. All systems reviewed and are unremarkable except as noted in HPI Physical Exam Exam Exam: Physical Exam General: Cooperative, healthy appearing, comfortable and no acute distress Orientation/consciousness: Patient oriented x3 Limitations: No limitations Head: Normal to inspection Ears: Hearing grossly normal bilaterally, external ears normal, EAC's normal bilaterally and TM's normal bilaterally Nose: Normal external nose present, Normal nares present and No nasal discharge present Face and sinus: Maxillary sinuses are tender Mouth: Normal oral and palatal mucosa present and moist mucous membranes Throat: tonsils normal, no exudates, uvula midline, posterior oropharynx erythema Eyes: Appearance normal, both eyes and all related structures Neck: Normal visual inspection, full ROM Respiratory: Clear to auscultation bilaterally. Normal respiratory effort, able to speak in complete sentences, not actively coughing, no respiratory distress, not tachypneic, no tripod positioning and no use of accessory muscles Cardiovascular: Regular rate and rhythm. Normal S1 and S2 Skin: No rashes or lesions noted Neuro: Patient oriented x3 Extremities: Normal to inspection and Yes no clubbing, cyanosis or edema Vital Signs: Last Vital Signs Temp 99.1 F 03/29/25 14:44 Pulse 92 03/29/25 14:44 BP 112/70 03/29/25 14:44 Pulse Ox 100 03/29/25 14:44 Oxygen Delivery Method Room Air 03/29/25 14:44 BMI result Body Mass Index 26.1 Assessment & Plan Assessment & Plan (1) Acute viral sinusitis: Code(s): J01.90 - Acute sinusitis, unspecified; B97.89 - Other viral agents as the cause of diseases classified elsewhere Plan: - VSS, pt well appearing and PE remarkable for sinus ttp. - The sinusitis is presumed to be viral in nature. - A nasal swab for influenza, COVID, and RSV was collected, and the patient will be contacted with any positive results. - Recommended using a Neti pot with distilled water twice daily to rinse the sinuses. - Prescribed a steroid dose pack to reduce inflammation and pain, with instructions to take the full daily dose each morning for six days, starting tomorrow. - The patient can increase the dose of Tessalon Perles to two capsules at a time to better suppress his cough, particularly to aid sleep. - The prescribed steroid pack is also expected to help alleviate the cough. (2) Nicotine dependence, cigarettes, uncomplicated: Comment: (onset 11yo, 1.5-2ppd x 52yrs, 80+pyh) Code(s): F17.210 - Nicotine dependence, cigarettes, uncomplicated Plan: - Advised to reduce cigarette smoking as it will further irritate his respiratory system and worsen his cough. Plan Patient was informed and verbally consented to the use of an ambient scribe for clinic note documentation during this visit. Orders: Orders SARS-CoV2/FLU/RSV Today R09.89 - Other specified symptoms and signs involving the circulatory and respiratory systems Medications: New methylprednisolone PO PER PKG DIR for 6 days 21 ea 0RF Coding Level of Care Code Est Pt Level 4 (97188) Diagnoses Acute viral sinusitis J01.90; B97.89 Nicotine dependence, cigarettes, uncomplicated F17.210
== END 2025-03-29 15:22 | disposition home or self-care (01) ==
PROVIDERS: PCP Internal Medicine; Visit Provider Physician Assistant
DX: J01.90 Acute sinusitis, unspecified (principal); B97.89 Other viral agents as the cause of diseases classified elsewhere; F17.210 Nicotine dependence, cigarettes, uncomplicated